=== PATIENT | female | born 1975 | race Caucasian/White ===

== ENCOUNTER 2019-08-01 12:45 | Emergency (ER) | payer OTHER ==
[~2019-08-01] VITALS: Ht 165.1 cm; Wt 117.9 kg
--- OUTSIDE RECORDS SUMMARY | ~2019-08-01 | XMS | Encounter Summary ---
Demographics + + + | Address | [address] [facility] | | | [place] [address] | + + + | Home Phone | | + + + | Preferred Language | Unknown | + + + | Marital Status | | + + + | Hinduism Affiliation | Unknown | + + + | Race | Unknown | + + + | Ethnic Group | Unknown | + + + Author + + + | Author | [facility] | | | and [place] | + + + | Organization | [facility] | | | and [place] | + + + | Address | Unknown | + + + | Phone | Unavailable | + + + Support + + + + + | Name | Relationship | Address | Phone | + + + + + | Alexsander Harris | ECON | [address] | | | | | [place] [address] | | + + + + + Care Team Providers + +------+ + | Care Respiratory Clinician Name | Role | Phone | + +------+ + | Haily Beltran NP | PCP | | + +------+ + Reason for Visit + + + | Reason | Comments | + + + | Sinusitis | x 3 days; assoc. with yellow sinus drainage, bilateral ear | | | drainage/vertigo, cough | + + + Encounter Details +--------+---------+ + + + | Date | Type | Department | Care Team | Description | +--------+---------+ + + + | 12/05/ | Office | [facility] | Indy Pearce | Acute bacterial | | 2019 | Visit | [address] | [place] [address] | rhinosinusitis | | | | [address] | [place] | (Primary Dx); Acute | | | | [address] [facility] | [place] [address] | diffuse otitis | | | | [place] [address] | [phone] | externa of both | | | | [phone] | | ears; Non-recurrent | | | | | | acute suppurative | | | | | | otitis media of both | | | | | | ears without | | | | | | spontaneous rupture | | | | | | of tympanic | | | | | | membranes | +--------+---------+ + + + Social History + +-------+ +--------+------+ | Tobacco Use | Types | Packs/Day | Years | Date | | | | | Used | | + +-------+ +--------+------+ | Current Every Day | | 2 | | | | Smoker | | | | | + +-------+ +--------+------+ + +---+---+---+ | Smokeless Tobacco: | | | | | Never Used | | | | + +---+---+---+ + + | Comments: quit a month ago | + + + + +---------+ + | Alcohol Use | Drinks/Week | oz/Week | Comments | + + +---------+ + | Yes | | | occassionally | + + +---------+ + + + + | Sex Assigned at | Date Recorded | | | | + + + | Not on file | | + + + + + + + | Job Start Date | Occupation | Industry | + + + + | Not on file | Not on file | Not on file | + + + + + + + + | Travel History | Travel Start | Travel End | + + + + + + | No recent travel history available. | + + documented as of this encounter Last Filed Vital Signs + + + + + | Vital Sign | Reading | Time Taken | Comments | + + + + + | Blood Pressure | 140/80 | 12/05/2018 4:04 PM | | | | | PDT | | + + + + + | Pulse | 82 | 12/05/2018 4:04 PM | | | | | PDT | | + + + + + | Temperature | 37.5 C (99.5 F) | 12/05/2018 4:04 PM | | | | | PDT | | + + + + + | Respiratory Rate | 16 | 12/05/2018 4:04 PM | | | | | PDT | | + + + + + | Oxygen Saturation | 97% | 12/05/2018 4:04 PM | | | | | PDT | | + + + + + | Inhaled Oxygen | - | - | | | Concentration | | | | + + + + + | Weight | 108.9 kg (240 lb) | 12/05/2018 4:04 PM | | | | | PDT | | + + + + + | Height | 165.1 cm (5' 5") | 12/05/2018 4:04 PM | | | | | PDT | | + + + + + | Body Mass Index | 39.94 | 12/05/2018 4:04 PM | | | | | PDT | | + + + + + documented in this encounter Patient Instructions Patient Instructions Indy Pearce, DARIEN - 12/05/2018 4:00 PM PDTFormatting of this n ote might be different from the original. Sinusitis (Antibiotic Treatment) The sinuses are air-filled spaces within the bones of the face. They connect to the inside of the nose.Sinusitisis an inflammation of the tissue that lines the sinuses. Sinusitis can occur during a cold. It can also happen due to allergies to pollens and other particles in the air. Sinusitis can cause symptoms of sinus congestion and a feeling of fullness. A si nus infection causes fever, headache, and facial pain. There is often green or yellow fluid draining from the nose or into the back of the throat (post-nasal drip). You have been given antibiotics to treat this condition. Home care Take the full course of antibiotics as instructed. Do not stop taking them, even when yo u feel better. Drink plenty of water, hot tea, and other liquids. This may help thin nasal mucus. It al so may help your sinuses drain fluids. Heat may help soothe painful areas of your face. Use a towel soaked in hot water. Or, st and in the shower and direct the warm spray onto your face. Using a vaporizer along with a m enthol rub at night may also help soothe symptoms. Anexpectorantwith guaifenesin may help thin nasal mucus and help your sinuses drain fluids. You can use an cotb-low-hadbvqdkodlkergjesy,unless a similar medicine was prescribed to you. Nasal sprays work the fastest. Use one that contains phenylephrine or oxymetazoline . First blow your nose gently. Then use the spray. Do not use these medicines more often itzel n directed on the label. If you do, your symptoms may get worse. You may also take pills itzel t contain pseudoephedrine. Don t use products that combine multiple medicines. This is bec ause side effects may be increased. Read labels. You can also ask the pharmacist for help. ( People with high blood pressure should not use decongestants. They can raise blood pressure. ) Atvq-wgs-jvpxjxntwiwobrnjbmgyztqu help if allergies contributed to your sinusitis. Do not use nasal rinses or irrigation during an acute sinus infection, unless your healt hcare provider tells you to. Rinsing may spread the infection to other areas in your sinuses . Use acetaminophen or ibuprofen to control pain, unless another pain medicine was prescri bed to you. If you have chronic liver or kidney disease or ever had a stomach ulcer, talk wi th your healthcare provider before using these medicines. (Aspirin should never be taken by anyone under age 18 who is ill with a fever. It may cause severe liver damage.) Don't smoke. This can make symptoms worse. Follow-up care Follow up with your healthcare provider or our staff if you are not better in 1 week. When to seek medical advice Call your healthcare provider if any of these occur: Facial pain or headache that gets worse Stiff neck Unusual drowsiness or confusion Swelling of your forehead or eyelids Vision problems, such as blurred or double vision Fever of100.4F (38C)or higher, or as directed by your healthcare provider Seizure Breathing problems Symptoms don't go away in 10 days Prevention Here are steps you can take to help prevent an infection: Keep good hand washing habits. Don t have close contact with people who have sore throats, colds, or other upper resp iratory infections. Don t smoke, and stay away from secondhand smoke. Stay up to date with of your vaccines. Date Last Reviewed: 06/27/201719998380-3754 [employer]. [address] [place] [address], [place] [address]. All righ ts reserved. This information is not intended as a substitute for professional medical care. Always follow your healthcare professional's instructions. Acute Bacterial Rhinosinusitis (ABRS) Acute bacterial rhinosinusitis (ABRS) is an infection of your nasal cavity and sinuses. It s caused by bacteria. Acute means that you ve had symptoms for less than 4 weeks, but po ssibly up to 12 weeks. Understanding your sinuses The nasal cavity is the large air-filled space behind your nose. The sinuses are a group of spaces formed by the bones of your face. They connect with your nasal cavity. ABRS causes t he tissue lining these spaces to become inflamed. Mucus may not drain normally. This leads t o facial pain and other symptoms. What causes ABRS? ABRS most often follows an upper respiratory infection caused by a virus. Bacteria then inf ect the lining of your nasal cavity and sinuses. But you can also get ABRS if you have: Nasal allergies Long-term nasal swelling and congestion not caused by allergies Blockage in the nose Symptoms of ABRS The symptoms of ABRS may be different for each person and include: Nasal congestion or blockage Pain or pressure in the face Thick, colored drainage from the nose Other symptoms may include: Runny nose Fluid draining from the nose down the throat (postnasal drip) Headache Cough Pain Fever Diagnosing ABRS ABRS may be diagnosed if you ve had an upper respiratory infection like a cold and cough for 10 or more days without improvement or with worsening symptoms. Your healthcare provider will ask about your symptoms and your medical history. The provider will check your vital s igns, including your temperature. You ll have a physical exam. The healthcare provider barry l check your ears, nose, and throat. You likely won t need any tests. If ABRS comes back, you may have a culture or other tests. Treatment for ABRS Treatment may include: Antibiotic medicine. This is for symptoms that last for at least 10 to 14 days. Nasal corticosteroid medicine. Drops or spray used in the nose can lessen swelling and c ongestion. Gqsa-hxn-xfkmcbh pain medicine. This is to lessen sinus pain and pressure. Nasal decongestant medicine. [place] or drops may help to lessen congestion. Do not use th em for more than a few days. Salt wash (saline irrigation). This can help to loosen mucus. Possible complications of ABRS ABRS may come back or become long-term (chronic). In rare cases, ABRS may cause complicatio ns such as: Inflamed tissue around the brain and spinal cord (meningitis) Inflamed tissue around the eyes (orbital cellulitis) Inflamed bones around the sinuses (osteitis) These problems may need to be treated in a hospital with intravenous (IV) antibiotic medici ne or surgery. When to call the healthcare provider Call your healthcare provider if you have any of the following: Symptoms that don t get better, or get worse Symptoms that don t get better after 3 to 5 days on antibiotics Trouble seeing Swelling around your eyes Confusion or trouble staying awake Date Last Reviewed: 12/25/201619991519-8059 [employer]. [address] [place], [place] [id number]. All righ ts reserved. This information is not intended as a substitute for professional medical care. Always follow your healthcare professional's instructions. External Ear Infection (Adult) External otitis (also called swimmer s ear ) is an infection in the ear canal. It is often caused by bacteria or fungus. It can occur a few days after water gets trapped in the ear canal (from swimming or bathing). It can also occur after cleaning too deeply in the ea r canal with a cotton swab or other object. Sometimes, hair care products get into the ear c anal and cause this problem. Symptoms can include pain, fever, itching, redness, drainage, or swelling of the ear canal. Temporary hearing loss may also occur. Home care Do not try to clean the ear canal. This can push pus and bacteria deeper into the canal. Use prescribed ear drops as directed. These help reduce swelling and fight the infection . If an ear wick was placed in the ear canal, apply drops right onto the end of the wick. Th e wick will draw the medicine into the ear canal even if it is swollen closed. A cotton ball may be loosely placed in the outer ear to absorb any drainage. You may use acetaminophen or ibuprofen to control pain, unless another medicinewas pre scribed. Note: If you have chronic liver or kidney disease or ever had a stomach ulcer or GI bleeding, talk to your healthcare provider before taking any of these medicines. Do not allow water to get into your ear when bathing. Also, don't swim until the infecti on has cleared. Prevention Keep your ears dry. This helps lower the risk of infection. Dry your ears with a towel o r foreign languages department chair after getting wet. Also, use ear plugs when swimming. Do not stick any objects in the ear to remove wax. If you feel water trapped in your ear, use ear drops right away. You can get these drops over the counter at most drugstores. They work by removing water from the ear canal. Follow-up care Follow up with your healthcare provider in 1 week, or as advised. When to seek medical advice Call your healthcare provider right away if any of these occur: Ear pain becomes worse or doesn t improve after 3 days of treatment Redness or swelling of the outer ear occurs or gets worse Headache Painful or stiff neck Drowsiness or confusion Fever of 100.4F (38C) or higher, or as directed by your healthcare provider Seizure Date Last Reviewed: 05/27/201719997763-2530 [employer] [employer]. [address] [place] [address]. All righ ts reserved. This information is not intended as a substitute for professional medical care. Always follow your healthcare professional's instructions. documented in this encounter Progress Notes Indy Pearce ARNP - 12/05/2018 4:00 PM PDTFormatting of this note might be differen t from the original. Subjective: Amparo Harris is a 43 y.o. female who presents to the clinic with a complaint of Sin usitis (x 3 days; assoc. with yellow sinus drainage, bilateral ear drainage/vertigo, cough ) Pt is a 43 yo wf who is a lifelong smoker since the age of 7, has symptoms of what she kiersten eves is a sinus infection, possibly an ear infection and is dizzy off and on. She has had f ever in addition to this up to 102. She is only been smoking about 2 cigarettes a day right now she is sick. Temperature is 99.5 today. She has significant pain and pressure in her sinuses. She states she would like to get this taken care of before it settles into her concepcion st. Symptoms are upper airway noise and congestion with a cough, earache bilaterally, but l ungs are clear. Sinus Problem This is a new problem. The current episode started in the past 7 days. The problem has been gradually worsening since onset. The maximum temperature recorded prior to her arrival was 102 - 102.9 F. Her pain is at a severity of 5/10. Associated symptoms include chills, conges tion, coughing, ear pain, headaches, shortness of breath, sinus pressure, sneezing and a sor e throat. Treatments tried: nyquel, sudafed, naproxden. The treatment provided mild relief. Allergies Allergen Reactions Citalopram Other (See Comments) "Couldn't stay awake" Penicillins Rash Medications: Patient Reported Taking Dosage albuterol (VENTOLIN HFA) 90 mcg/puff inhaler (Taking) Ventolin HFA 90 mcg/actuation aeros ol inhaler - 2 puffs every 4 hours as needed for shortness of breath Number of times this order has been changed since signin Order Audit Russell albuterol 2.5 mg/3 mL nebulizer solution (Taking) Take 2.5 mg by nebulization as needed f or Wheezing. APPLE CIDER VINEGAR PO (Taking) Take by mouth 2 times daily. Number of times this order has been changed since signin Order Audit Russell Ascorbic Acid (VITAMIN C) 1000 MG tablet (Taking) Take 2,000 mg by mouth Daily. B Complex Vitamins (B COMPLEX PO) (Taking) Take by mouth Daily. Number of times this order has been changed since signin Order Audit Russell Biotin 5000 MCG CAPS (Taking) Take 5,000 mcg by mouth Daily. Number of times this order has been changed since signin Order Audit Russell cetirizine (ZYRTEC) 10 mg tablet (Taking) Take 10 mg by mouth Daily. Cholecalciferol (VITAMIN D-3) 83180 units CAPS (Taking) Take 10,000 Units by mouth Daily. Coenzyme Q10 (COQ10) 100 MG CAPS (Taking) Take 120 mg by mouth 2 times daily. Number of times this order has been changed since signin Order Audit Russell Violet 3 1000 MG CAPS (Taking) Take 2,000 mg by mouth 2 times daily. Number of times this order has been changed since signin Order Audit Russell prazosin (MINIPRESS) 1 mg capsule (Taking/Discontinued) Take 2 mg by mouth nightly. Number of times this order has been changed since signin Order Audit Russell prazosin (MINIPRESS) 2 MG capsule (Taking) Take 2 mg by mouth nightly. Number of times this order has been changed since signin Order Audit Russell THYROID PO (Taking) Take by mouth Daily. Number of times this order has been changed since signin Order Audit Russell Turmeric (CURCUMIN 95) 500 MG CAPS (Taking) Take by mouth 3 times daily. Number of times this order has been changed since signin Order Audit Russell vitamin E 1000 UNITS capsule (Taking) Take 1,000 Units by mouth Daily. Past Medical History She has a past medical history of Anxiety, Cancer (HCC), Depression, Sleep disorder due to a general medical condition, insomnia type, Spondylitis, ankylosing (HCC), and Thyroid disea se. Past Surgical History She has a past surgical history that includes Hysterectomy; hernia repair; Cholecystectomy; and Tonsillectomy. Social History Tobacco Use Smoking status: Current Every Day Smoker Packs/day: 2.00 Smokeless tobacco: Never Used Tobacco comment: quit a month ago Substance Use Topics Alcohol use: Yes Comment: occassionally Drug use: Yes Frequency: 7.0 times per week Types: Marijuana Review of Systems Constitutional: Positive for appetite change, chills, fatigue and fever. HENT: Positive for congestion, ear pain, postnasal drip, rhinorrhea, sinus pressure, sinus pain, sneezing and sore throat. Negative for dental problem. Respiratory: Positive for cough and shortness of breath. Neurological: Positive for dizziness and headaches. See HPI Objective: Vitals: 12/05/18 1604 BP: 140/80 Pulse: 82 Resp: 16 Temp: 37.5 C (99.5 F) TempSrc: Oral SpO2: 97% Weight: 108.9 kg (240 lb) Height: 1.651 m (5' 5") No LMP recorded. Patient has had a hysterectomy. Physical Exam Constitutional: She is oriented to person, place, and time. She appears well-developed and well-nourished. She is cooperative. She appears ill. She appears distressed. Overall 99.5F HENT: Head: Normocephalic and atraumatic. Right Ear: Hearing and ear canal normal. There is tenderness. No drainage. There is mastoid tenderness. Tympanic membrane is erythematous and bulging. A middle ear effusion is present . Left Ear: Hearing and ear canal normal. There is tenderness. No drainage. No mastoid tender ness. Tympanic membrane is erythematous and bulging. A middle ear effusion is present. Nose: Mucosal edema, rhinorrhea and sinus tenderness present. Right sinus exhibits no front al sinus tenderness. Left sinus exhibits no frontal sinus tenderness. Mouth/Throat: Uvula is midline, oropharynx is clear and moist and mucous membranes are norm al. No trismus in the jaw. No uvula swelling. No oropharyngeal exudate, posterior oropharyng eal edema, posterior oropharyngeal erythema or tonsillar abscesses. Eyes: Pupils are equal, round, and reactive to light. Conjunctivae and lids are normal. Neck: Neck supple. Cardiovascular: Normal rate, regular rhythm and normal heart sounds. Pulmonary/Chest: Effort normal. No stridor. No respiratory distress. She has no decreased b reath sounds. She has no wheezes. She has rhonchi in the right upper field and the left uppe r field. She has no rales. Scattered occasional rhonchi Lymphadenopathy: She has cervical adenopathy. Right cervical: Deep cervical adenopathy present. Left cervical: Deep cervical adenopathy present. Superior deep cervical lymph nodes palpable on the right side. no noticeable warmth to the touch in the area of the mastoid bone as well as the parotid and superficial anterior and p osterior nodes. The right side is the more prominent of the glands and slightly tender to t ouch. Neurological: She is alert and oriented to person, place, and time. Skin: Skin is warm and dry. No rash noted. Psychiatric: She has a normal mood and affect. Her behavior is normal. Nursing note and vitals reviewed. No results found for this or any previous visit (from the past 24 hour(s)). Assessment: 1. Acute bacterial rhinosinusitis doxycycline (VIBRAMYCIN) 100 mg capsule 2. Acute diffuse otitis externa of both ears mfxiwqwh-zqzpmbzii-adrnfsoycrvuyh (CORTISPORI N) otic solution 3. Non-recurrent acute suppurative otitis media of both ears without spontaneous rupture of tympanic membranes doxycycline (VIBRAMYCIN) 100 mg capsule Plan: 1. Acute bacterial rhinosinusitis - doxycycline (VIBRAMYCIN) 100 mg capsule; Take 1 capsule by mouth 2 times daily for 10 day s. Dispense: 20 capsule; Refill: 0 2. Acute diffuse otitis externa of both ears - xvkchvfp-wqefzvmsz-jjbmugnoannvyy (CORTISPORIN) otic solution; Place 4 drops in ear(s) 4 times daily for 7 days. Dispense: 10 mL; Refill: 0 3. Non-recurrent acute suppurative otitis media of both ears without spontaneous rupture of tympanic membranes - doxycycline (VIBRAMYCIN) 100 mg capsule; Take 1 capsule by mouth 2 times daily for 10 day s. Dispense: 20 capsule; Refill: 0 See AVS for patient instructions. Patient KAVIN has Sudafed in an inhaler at home and has bee n using these regularly. Instructed to continue Sudafed to help decrease nasal congestion. Take the antibiotic as directed for the sinus infection. Drink lots water. Patient instru cted to go to urgent care or even the ER should her symptoms worsen in anyway over the next day to 2 days. Diagnosis and plan including medications and side effects were discussed with the patient a nd information handout was given. Patient voices understanding of the plan and all questions were answered. No follow-ups on file. documented in this encounter Plan of Treatment Not on filedocumented as of this encounter Visit Diagnoses + + | Diagnosis | + + | Acute bacterial rhinosinusitis - Primary | + + | Acute diffuse otitis externa of both ears | + + | Non-recurrent acute suppurative otitis media of both ears without spontaneous rupture | | of tympanic membranes | + + documented in this encounter
--- OUTSIDE RECORDS SUMMARY | ~2019-08-01 | XMS | Encounter Summary ---
Demographics + + + | Address | [address], [place] | | | [place] [address] | + + + | Home Phone | | + + + | Preferred Language | Unknown | + + + | Marital Status | | + + + | Nondenominational Affiliation | Unknown | + + + | Race | Unknown | + + + | Ethnic Group | Unknown | + + + Author + + + | Author | [facility] | | | and [place] | + + + | Organization | [facility] | | | and [place] | + + + | Address | Unknown | + + + | Phone | Unavailable | + + + Support + + + + + | Name | Relationship | Address | Phone | + + + + + | Alexsander Harris | ECON | [address] | | | | | [place] [address] | | + + + + + Care Team Providers + +------+ + | Care Electrical Engineering Intern Name | Role | Phone | + +------+ + PCP | Unavailable | + +------+ + Encounter Details +--------+ + + + + | Date | Type | Department | Care Team | Description | +--------+ + + + + | 01/11/ | Hospital | [facility] | Austin Cote MD | | | 2011 - | Encounter | MED CTR MED ONC | [address] | | | | | [address] | [place] [address] | | | 01/12/ | | [place] [address] | [phone] | | | 2011 | | [phone] | | | +--------+ + + + + Social History + +-------+ +--------+------+ | Tobacco Use | Types | Packs/Day | Years | Date | | | | | Used | | + +-------+ +--------+------+ | Never Assessed | | | | | + +-------+ +--------+------+ + + + | Sex Assigned at [...] + + documented as of this encounter Discharge Summaries Austin Cote MD - 01/12/2012 6:05 PM PDTADMISSION DATE: 01/12/2012 DISCHARGE DATE: 01/13/2012 The patient is a 36-year-old lady who presented to the hospital with concerns of sudden ons et of ches t pain. Kindly refer to H and Callie for further details. The patient was admitted to the hospital to rule out an FL. Serial troponins were checked, which were all found to be negative. The patient was chest pain-free when she had arrived to the ER and remained so th roughout her stay in the hospital. The narda balderrama's EKG remained normal sinus rhythm with no ST-T changes, no dynamic ST-T changes. The patient w as obese and lifestyle modifications w ere advised to patient, and also advised for outpatient diabete s screening and cholesterol check. The patient was advised for outpatient cardiac stress test, as rogelio donohue. The patient d id complain of some palpitations and on further history taking it seemed that the aguilar puente takes excessive caffeine and was advised to decrease or eliminate her caffeine intake and fo llow up with outpatient PCP regarding any further evaluation for that. The patient was found stable for discharge and was discharged with the following. DISCHARGE DIAGNOSES 1. CHEST PAIN, MYOCARDIAL INFARCTION RULED OUT. THE PATIENT CHEST PAIN-FREE. 2. OBESITY. Advised lifestyle modification. 3. KNOWN HISTORY OF ANXIETY, POSTTRAUMATIC STRESS DISORDER AND BIPOLAR DISORDER, ALL UNDER CONTROL ON MEDICATIONS. Continue to follow up with outpatient psychiatric. 4. HISTORY OF HYPOTHYROIDISM, on thyroid replacement therapy. DISCHARGE MEDICATIONS: As follows 1. Ambien 5 mg p.o. at bedtime as needed for insomnia. 2. Geodon home medication 80 mg orally every evening. 3. Minipress 2 mg oral every evening. 4. Oxycodone/acetaminophen combination 7.5/325, 1 p.o. every 4 hours as needed for moderate to severe pain. 5. Synthroid 175 mcg orally daily. 6. Estradiol 1 mg orally every evening. The patient apparently on hormone replacement thera py through PCP. 7. Aspirin 81 mg oral daily. 8. Xanax 0.25 mg oral every 8 hours p.r.n. for anxiety. 9. Tylenol 650 mg, 1 p.o. every 8 hours as needed for mild to moderate pain. DICTATED BY: Austin Cote MD Internal Medicine/Hospitalist JOB #: [id number] EXT JOB #:[id number] cc: Fausto Montesinos DO <Electronically Signed by Austin Cote MD> 01/24/12 2155 documented in this encounter Plan of Treatment Not on filedocumented as of this encounter Procedures + +--------+ + + + | Procedure Name | Priori | Date/Time | Associated Diagnosis | Comments | | | ty | | | | + +--------+ + + + | TROPONIN I | Routin | 01/13/2012 | | Results for this | | | e | 7:03 AM | | procedure are in the | | | | PDT | | results section. | + +--------+ + + + | LIPASE | Routin | 01/13/2012 | | Results for this | | | e | 7:03 AM | | procedure are in the | | | | PDT | | results section. | + +--------+ + + + | HEMOGLOBIN A1C | Routin | 01/13/2012 | | Results for this | | | e | 7:03 AM | | procedure are in the | | | | PDT | | results section. | + +--------+ + + + | TROPONIN I | Routin | 01/12/2012 | | Results for this | | | e | 10:18 PM | | procedure are in the | | | | PDT | | results section. | + +--------+ + + + | VAS LOWER EXTREMITY | | 01/12/2012 | | Results for this | | VENOUS RIGHT | | 6:05 PM | | procedure are in the | | | | PDT | | results section. | + +--------+ + + + | XR CHEST AP PORTABLE | | 01/12/2012 | | Results for this | | | | 6:05 PM | | procedure are in the | | | | PDT | | results section. | + +--------+ + + + | TROPONIN I | Routin | 01/12/2012 | | Results for this | | | e | 2:46 PM | | procedure are in the | | | | PDT | | results section. | + +--------+ + + + | D-DIMER | Routin | 01/12/2012 | | Results for this | | | e | 2:46 PM | | procedure are in the | | | | PDT | | results section. | + +--------+ + + + | CBC WITH | Routin | 01/12/2012 | | Results for this | | DIFFERENTIAL | e | 2:46 PM | | procedure are in the | | | | PDT | | results section. | + +--------+ + + + | COMPREHENSIVE | Routin | 01/12/2012 | | Results for this | | METABOLIC PANEL | e | 2:46 PM | | procedure are in the | | | | PDT | | results section. | + +--------+ + + + documented in this encounter Results Hemoglobin A1C (01/13/2012 7:03 AM PDT) + +-------+ + + + | Component | Value | Ref Range | Performed | Pathologist | | | | | At | Signature | + +-------+ + + + | Hemoglobin | 4.7 | 4.3 - 5.8 % | [facility] | | | A1c | | | [facility] | | | | | | MEDICAL | | | | | | CENTER - | | | | | | LABORATORY | | + +-------+ + + + + + | Specimen | + + | | + + + + + + + | Performing | Address | City/State/Zipcode | Phone Number | | Organization | | | | + + + + + | [facility] | [address] | [place] | [phone] | | [facility] | | [address] | | | - LABORATORY | | | | + + + + + | [facility] | [address] | [place] | | | [facility] | | [address] | | | - LABORATORY | | | | + + + + + Troponin I (01/13/2012 7:03 AM PDT) + + + + + + | Component | Value | Ref Range | Performed | Pathologist | | | | | At | Signature | + + + + + + | Troponin I | <0.01Comment: Reference | <0.06 ng/mL | [facility] | | | | Ranges: | | [facility] | | | | 0.00-0.06 = NORMAL | | MEDICAL | | | | >0.06 | | CENTER - | | | | = SUSPICIOUS FOR | | LABORATORY | | | | MYOCARDIAL DAMAGE | | | | | | NOTE: Values greater | | | | | | than 0.50 ng/mL have | | | | | | been shown to be | | | | | | strongly associated with | | | | | | acute myocardial | | | | | | infarction. The | | | | | | [employer] | | | | | | Cardiology (ACC) | | | | | | recommends a decision | | | | | | limit of 0.06 ng/mL for | | | | | | this assay. Results | | | | | | greater than 0.06 can | | | | | | reflect a pre-infarct | | | | | | acute coronary | | | | | | syndrome, but can also | | | | | | reflect myocardial | | | | | | necrosis or injury | | | | | | that is not due to | | | | | | coronary artery | | | | | | disease. Some of these | | | | | | causes are sepsis, | | | | | | hypocolemia, atrial | | | | | | fibrillation, heart | | | | | | failure, pulmonary | | | | | | embolism, myocarditis, | | | | | | myocardial contusion, | | | | | | and renal failure. The | | | | | | diagnosis of myocardial | | | | | | infarction should be | | | | | | based on a combination | | | | | | of the patient's | | | | | | clinical presentation | | | | | | and the clinical | | | | | | laboratory test results | | | | | | (especially serial | | | | | | troponin levels). | | | | + + + + + + + + | Specimen | + + | | + + + + + + + | Performing | Address | City/State/Zipcode | Phone Number | | Organization | | | | + + + + + | [facility] | [address] | [place], [place] | [phone] | | [facility] | | [address] | | | - LABORATORY | | | | + + + + + | [facility] | [address] | [place], [place] | | | [facility] | | [address] | | | - LABORATORY | | | | + + + + + Lipase (01/13/2012 7:03 AM PDT) + +-------+ + + + | Component | Value | Ref Range | Performed | Pathologist | | | | | At | Signature | + +-------+ + + + | Lipase | 18 | 0 - 60 U/L | [facility] | | | | | | [facility] | | | | | | MEDICAL | | | | | | CENTER - | | | | | | LABORATORY | | + +-------+ + + + + + | Specimen | + + | | + + + + + + + | Performing | Address | City/State/Zipcode | Phone Number | | Organization | | | | + + + + + | [facility] | [address] | [place] | [phone] | | [facility] | | [address] | | | - LABORATORY | | | | + + + + + | [facility] | [address] | [place] | | | [facility] | | [address] | | | - LABORATORY | | | | + + + + + Troponin I (01/12/2012 10:18 PM PDT) + + + + + + | Component | Value | Ref Range | Performed | Pathologist | | | | | At | Signature | + + + + + + | Troponin I | <0.01Comment: Reference | <0.06 ng/mL | [facility] | | | | Ranges: | | [facility] | | | | 0.00-0.06 = NORMAL | | MEDICAL | | | | >0.06 | | CENTER - | | | | = SUSPICIOUS FOR | | LABORATORY | | | | MYOCARDIAL DAMAGE | | | | | | NOTE: Values greater | | | | | | than 0.50 ng/mL have | | | | | | been shown to be | | | | | | strongly associated with | | | | | | acute myocardial | | | | | | infarction. The | | | | | | [employer] | | | | | | Cardiology (ACC) | | | | | | recommends a decision | | | | | | limit of 0.06 ng/mL for | | | | | | this assay. Results | | | | | | greater than 0.06 can | | | | | | reflect a pre-infarct | | | | | | acute coronary | | | | | | syndrome, but can also | | | | | | reflect myocardial | | | | | | necrosis or injury | | | | | | that is not due to | | | | | | coronary artery | | | | | | disease. Some of these | | | | | | causes are sepsis, | | | | | | hypocolemia, atrial | | | | | | fibrillation, heart | | | | | | failure, pulmonary | | | | | | embolism, myocarditis, | | | | | | myocardial contusion, | | | | | | and renal failure. The | | | | | | diagnosis of myocardial | | | | | | infarction should be | | | | | | based on a combination | | | | | | of the patient's | | | | | | clinical presentation | | | | | | and the clinical | | | | | | laboratory test results | | | | | | (especially serial | | | | | | troponin levels). | | | | + + + + + + + + | Specimen | + + | | + + + + + + + | Performing | Address | City/State/Zipcode | Phone Number | | Organization | | | | + + + + + | [facility] | [address] | [place], [place] | [phone] | | [facility] | | [address] | | | - LABORATORY | | | | + + + + + | [facility] | [address] | [place], [place] | | | [facility] | | [address] | | | - LABORATORY | | | | + + + + + XR Chest AP Portable (01/12/2012 6:05 PM PDT) + + | Specimen | + + | | + + + + + | Narrative | Performed At | + + + | Merged With [facility] Diagnostic Imaging Department | [facility] | | [address] [facility] | [facility] | | PORTABLE CHEST, 01/12/2012 | DIAG IMG | | CLINICAL HISTORY: CHEST PAIN. COMPARISON: None. | | | FINDINGS: Frontal view of the chest. The lungs are well aerated | | | and clear. No large effusions. No pneumothorax. The cardiac | | | and mediastinal contours are not enlarged. Osseous structures are | | | withou t acute abnormality. Chronic changes are present in the | | | right distal clavicle at the acromioclavicul ar joint. | | | IMPRESSION: 1. NO ACUTE DISEASE. Dictated Date/Time: | | | 01/12/2012 16:44 Transcribed Date/Time: 01/12/2012 17:13 | | | Fingerprint Classifier: <Electronically Signed by Ventura Stewart, | | | MD> 01/15/12 3912 | | + + + + + | Procedure Note | + + | Keo, Rad Conversion - 10/03/2013 5:22 PM [facility] | | Diagnostic Imaging Department [address] [place] [address] | | PORTABLE CHEST, 01/12/2012 CLINICAL HISTORY: CHEST | | PAIN. COMPARISON: None. FINDINGS: Frontal view of the chest. The lungs are well | | aerated and clear. No large effusions. No pneumothorax. The cardiac and mediastinal | | contours are not enlarged. Osseous structures are without acute abnormality. Chronic | | changes are present in the right distal clavicle at the acromioclavicular joint. | | IMPRESSION: 1. NO ACUTE DISEASE. Dictated Date/Time: 01/12/2012 16:44Transcribed | | Date/Time: 01/12/2012 17:13Transcriptionist: <Electronically Signed by Ventura Hoover | | MD Terry> 01/15/12 4402 | |COMPARISON: None. | | | |FINDINGS: Frontal view of the chest. The lungs are well aerated and clear. No large effu sions. No | | pneumothorax. The cardiac and mediastinal contours are not enlarged. Osseous structures are withou | |t acute abnormality. Chronic changes are present in the right distal clavicle at the acrom ioclavicul | |ar joint. | | | |IMPRESSION: | |1. NO ACUTE DISEASE. | | | |Dictated Date/Time: 01/12/2012 16:44 | |Transcribed Date/Time: 01/12/2012 17:13 | |Fingerprint Classifier: | |<Electronically Signed by Ventura Stewart MD> 01/15/12 1832 | + + + +---------+ + + | Performing | Address | City/State/[facility] | Phone Number | | Organization | | | | + +---------+ + + | [place] | | | | | [facility] | | | | + +---------+ + + VAS Lower Extremity Venous Right (01/12/2012 6:05 PM PDT) + + | Specimen | + + | | + + + + + | Narrative | Performed At | + + + | Merged With [facility] Diagnostic Imaging Department | [facility] | | [address] [facility] | [facility] | | RIGHT VENOUS DUPLEX: 01/12/2012 | DIAG IMG | | CLINICAL HISTORY: RIGHT LOWER EXTREMITY SWELLING. FINDINGS: | | | Compression sonography is performed from the right groin through | | | the popliteal branch vess els. Areas sampled demonstrate | | | normal and complete compressibility. No visible thrombi. There is | | | appropr iate response to Valsalva in the right common femoral vein. | | | Respiratory phasic flow is seen througho ut. Response to calf | | | augmentation is seen throughout. Complex fluid collection is | | | seen in the posterior aspect of the right knee. IMPRESSION: | | | 1. NO EVIDENCE FOR DEEP VENOUS THROMBOSIS. 2. COMPLEX FLUID IN | | | THE POSTERIOR FOSSA WOULD MOST COMMONLY REPRESENT A WARD'S CYST. | | | COMMENT: PRELIMINARY FINDINGS WERE CONVEYED TO DR. CHAMBERS | | | IMMEDIATELY FOLLOWING THE STUDY. Dictated Date/Time: 01/12/2012 | | | 16:17 Transcribed Date/Time: 01/12/2012 16:59 Fingerprint Classifier: | | | RB <Electronically Signed by Ventura Stewart MD> 01/15/12 7172 | | + + + + + | Procedure Note | + + | Keo, Rad Conversion - 10/03/2013 5:22 PM [facility] | | Diagnostic Imaging Department [address] [place] [address] | | RIGHT VENOUS DUPLEX: 01/12/2012 CLINICAL HISTORY: | | RIGHT LOWER EXTREMITY SWELLING. FINDINGS: Compression sonography is performed from the | | right groin through the popliteal branch vessels. Areas sampled demonstrate normal and | | complete compressibility. No visible thrombi. There is appropriate response to | | Valsalva in the right common femoral vein. Respiratory phasic flow is seen throughout. | | Response to calf augmentation is seen throughout. Complex fluid collection is seen in | | the posterior aspect of the right knee. IMPRESSION: 1. NO EVIDENCE FOR DEEP VENOUS | | THROMBOSIS. 2. COMPLEX FLUID IN THE POSTERIOR FOSSA WOULD MOST COMMONLY REPRESENT A | | WARD'S CYST. COMMENT: PRELIMINARY FINDINGS WERE CONVEYED TO DR. CHAMBERS IMMEDIATELY | | FOLLOWING THE STUDY. Dictated Date/Time: 01/12/2012 16:17Transcribed Date/Time: | | 01/12/2012 16:59Transcriptionist: <Electronically Signed by Ventura Stewart MD> | | 01/15/122 | |iate response to Valsalva in the right common femoral vein. Respiratory phasic flow is see n througho | |ut. Response to calf augmentation is seen throughout. | | | |Complex fluid collection is seen in the posterior aspect of the right knee. | | | |IMPRESSION: | |1. NO EVIDENCE FOR DEEP VENOUS THROMBOSIS. | | | |2. COMPLEX FLUID IN THE POSTERIOR FOSSA WOULD MOST COMMONLY REPRESENT A WARD'S CYST. | | | |COMMENT: PRELIMINARY FINDINGS WERE CONVEYED TO DR. CHAMBERS IMMEDIATELY FOLLOWING THE STUDY. | | | |Dictated Date/Time: 01/12/2012 16:17 | |Transcribed Date/Time: 01/12/2012 16:59 | |Fingerprint Classifier: | |<Electronically Signed by Ventura Stewart MD> 01/15/122 | + + + +---------+ + + | Performing | Address | City/State/Zipcode | Phone Number | | Organization | | | | + +---------+ + + | [place] | | | | | [facility] | | | | + +---------+ + + D-Dimer (01/12/2012 2:46 PM PDT) + + + + + + | Component | Value | Ref Range | Performed | Pathologist | | | | | At | Signature | + + + + + + | D-DIMER, | <0.22Comment: This | <0.50 ug/mlFEU | [facility] | | | QUANTITATIV | quantitative D-Dimer | | [facility] | | | E | assay has been evaluated | | MEDICAL | | | | for screening for | | CENTER - | | | | venous thrombotic | | LABORATORY | | | | disease, and may be | | | | | | useful in ruling out, | | | | | | but not ruling in | | | | | | disease. Values less | | | | | | than 0.50 ug/mL FEU | | | | | | (Fibrinogen Equivalent | | | | | | Units) have a negative | | | | | | predictive value of | | | | | | approximately 95% for | | | | | | ruling out large | | | | | | pulmonary emboli or | | | | | | proximal deep vein | | | | | | thrombosis. Distal DVT | | | | | | are not excluded. An | | | | | | elevated D-dimer can be | | | | | | present in patients | | | | | | with liver disease, | | | | | | , eclampsia, | | | | | | heart disease and some | | | | | | cancers among other | | | | | | conditions. The | | | | | | presence of rheumatoid | | | | | | factor at a level >50 | | | | | | IU/mL may falsely | | | | | | elevate the determined | | | | | | D-dimer levels. | | | | + + + + + + + + | Specimen | + + | | + + + + + + + | Performing | Address | City/State/Zipcode | Phone Number | | Organization | | | | + + + + + | [facility] | [address] | [place] | [phone] | | [facility] | | [address] | | | - LABORATORY | | | | + + + + + | [facility] | [address] | [place] | | | [facility] | | [address] | | | - LABORATORY | | | | + + + + + Comprehensive Metabolic Panel (01/12/2012 2:46 PM PDT) + + + + + + | Component | Value | Ref Range | Performed | Pathologist | | | | | At | Signature | + + + + + + | Glucose | 117 (H) | 70 - 109 mg/dL | [facility] | | | | | | [facility] | | | | | | MEDICAL | | | | | | CENTER - | | | | | | LABORATORY | | + + + + + + | Calcium | 8.4 | 8.3 - 10.5 | [facility] | | | | | mg/dL | [facility] | | | | | | MEDICAL | | | | | | CENTER - | | | | | | LABORATORY | | + + + + + + | Alkaline | 71 | 40 - 110 IU/L | [facility] | | | Phosphatase | | | [facility] | | | | | | MEDICAL | | | | | | CENTER - | | | | | | LABORATORY | | + + + + + + | AST | 22 | 10 - 42 IU/L | [facility] | | | | | | [facility] | | | | | | MEDICAL | | | | | | CENTER - | | | | | | LABORATORY | | + + + + + + | ALT | 21 | 6 - 45 IU/L | [facility] | | | | | | [facility] | | | | | | MEDICAL | | | | | | CENTER - | | | | | | LABORATORY | | + + + + + + | Bilirubin | 0.5 | 0.2 - 1.0 mg/dL | [facility] | | | Total | | | [facility] | | | | | | MEDICAL | | | | | | CENTER - | | | | | | LABORATORY | | + + + + + + | Total | 6.3 | 6.0 - 7.8 gm/dL | [facility] | | | Protein | | | [facility] | | | | | | MEDICAL | | | | | | CENTER - | | | | | | LABORATORY | | + + + + + + | Albumin | 3.8 | 3.2 - 5.0 gm/dL | [facility] | | | | | | [facility] | | | | | | MEDICAL | | | | | | CENTER - | | | | | | LABORATORY | | + + + + + + | BUN | 16 | 7 - 18 mg/dL | [facility] | | | | | | [facility] | | | | | | MEDICAL | | | | | | CENTER - | | | | | | LABORATORY | | + + + + + + | Creatinine | 0.76 | 0.60 - 1.30 | [facility] | | | | | mg/dL | [facility] | | | | | | MEDICAL | | | | | | CENTER - | | | | | | LABORATORY | | + + + + + + | Estimated | >60Comment: For | >60 mL/min/A | [facility] | | | GFR | -Americans, | | [facility] | | | | please multiply the | | MEDICAL | | | | result by 1.210 | | CENTER - | | | | This is an estimated | | LABORATORY | | | | GFR and is based on a | | | | | | standard adult | | | | | | body mass (A=1.73m2) and | | | | | | serum creatinine | | | | + + + + + + | BUN/Creatin | 21.1 (H) | 12 - 20 | [facility] | | | ine Ratio | | | [facility] | | | | | | MEDICAL | | | | | | CENTER - | | | | | | LABORATORY | | + + + + + + | Na | 133 (L) | 136 - 149 mEq/L | [facility] | | | | | | [facility] | | | | | | MEDICAL | | | | | | CENTER - | | | | | | LABORATORY | | + + + + + + | K | 3.8 | 3.5 - 5.1 mEq/l | [facility] | | | | | | [facility] | | | | | | MEDICAL | | | | | | CENTER - | | | | | | LABORATORY | | + + + + + + | Cl | 107 | 98 - 109 mEq/l | [facility] | | | | | | [facility] | | | | | | MEDICAL | | | | | | CENTER - | | | | | | LABORATORY | | + + + + + + | CO2 | 22 (L) | 24 - 31 mEq/L | [facility] | | | | | | [facility] | | | | | | MEDICAL | | | | | | CENTER - | | | | | | LABORATORY | | + + + + + + | Anion Gap | 7.8 | 6.0 - 17.0 | [facility] | | | | | | [facility] | | | | | | MEDICAL | | | | | | CENTER - | | | | | | LABORATORY | | + + + + + + + + | Specimen | + + | | + + + + + + + | Performing | Address | City/State/Zipcode | Phone Number | | Organization | | | | + + + + + | [facility] | [address] | [place], [place] | [phone] | | [facility] | | [address] | | | - LABORATORY | | | | + + + + + | [facility] | [address] | [place], [place] | | | [facility] | | [address] | | | - LABORATORY | | | | + + + + + Troponin I (01/12/2012 2:46 PM PDT) + + + + + + | Component | Value | Ref Range | Performed | Pathologist | | | | | At | Signature | + + + + + + | Troponin I | <0.01Comment: Reference | <0.06 ng/mL | [facility] | | | | Ranges: | | [facility] | | | | 0.00-0.06 = NORMAL | | MEDICAL | | | | >0.06 | | CENTER - | | | | = SUSPICIOUS FOR | | LABORATORY | | | | MYOCARDIAL DAMAGE | | | | | | NOTE: Values greater | | | | | | than 0.50 ng/mL have | | | | | | been shown to be | | | | | | strongly associated with | | | | | | acute myocardial | | | | | | infarction. The | | | | | | [employer] | | | | | | Cardiology (ACC) | | | | | | recommends a decision | | | | | | limit of 0.06 ng/mL for | | | | | | this assay. Results | | | | | | greater than 0.06 can | | | | | | reflect a pre-infarct | | | | | | acute coronary | | | | | | syndrome, but can also | | | | | | reflect myocardial | | | | | | necrosis or injury | | | | | | that is not due to | | | | | | coronary artery | | | | | | disease. Some of these | | | | | | causes are sepsis, | | | | | | hypocolemia, atrial | | | | | | fibrillation, heart | | | | | | failure, pulmonary | | | | | | embolism, myocarditis, | | | | | | myocardial contusion, | | | | | | and renal failure. The | | | | | | diagnosis of myocardial | | | | | | infarction should be | | | | | | based on a combination | | | | | | of the patient's | | | | | | clinical presentation | | | | | | and the clinical | | | | | | laboratory test results | | | | | | (especially serial | | | | | | troponin levels). | | | | + + + + + + + + | Specimen | + + | | + + + + + + + | Performing | Address | City/State/Zipcode | Phone Number | | Organization | | | | + + + + + | [facility] | [address] | [place] | [phone] | | [facility] | | [address] | | | - LABORATORY | | | | + + + + + | [facility] | [address] | [place], [place] | | | [facility] | | [address] | | | - LABORATORY | | | | + + + + + CBC with Differential (01/12/2012 2:46 PM PDT) + +-------+ + + + | Component | Value | Ref Range | Performed | Pathologist | | | | | At | Signature | + +-------+ + + + | WBC | 8.3 | 4.0 - 11.0 K/uL | [facility] | | | | | | [facility] | | | | | | MEDICAL | | | | | | CENTER - | | | | | | LABORATORY | | + +-------+ + + + | RBC | 3.94 | 3.70 - 5.20 | [facility] | | | | | M/uL | [facility] | | | | | | MEDICAL | | | | | | CENTER - | | | | | | LABORATORY | | + +-------+ + + + | Hemoglobin | 12.5 | 11.5 - 16.0 | [facility] | | | | | gm/dL | [facility] | | | | | | MEDICAL | | | | | | CENTER - | | | | | | LABORATORY | | + +-------+ + + + | Hematocrit | 35.4 | 34.0 - 47.0 % | [facility] | | | | | | [facility] | | | | | | MEDICAL | | | | | | CENTER - | | | | | | LABORATORY | | + +-------+ + + + | MCV | 89.7 | 83.0 - 101.0 fL | [facility] | | | | | | [facility] | | | | | | MEDICAL | | | | | | CENTER - | | | | | | LABORATORY | | + +-------+ + + + | MCH | 31.7 | 28.0 - 35.0 pg | [facility] | | | | | | [facility] | | | | | | MEDICAL | | | | | | CENTER - | | | | | | LABORATORY | | + +-------+ + + + | MCHC | 35.3 | 32.0 - 36.0 | [facility] | | | | | g/dL | [facility] | | | | | | MEDICAL | | | | | | CENTER - | | | | | | LABORATORY | | + +-------+ + + + | RDW-CV | 12.7 | <15.0 % | [facility] | | | | | | [facility] | | | | | | MEDICAL | | | | | | CENTER - | | | | | | LABORATORY | | + +-------+ + + + | Platelet | 262 | 140 - 440 K/uL | [facility] | | | Count | | | [facility] | | | | | | MEDICAL | | | | | | CENTER - | | | | | | LABORATORY | | + +-------+ + + + | % | 63.4 | 45 - 75 % | [facility] | | | Neutrophils | | | [facility] | | | | | | MEDICAL | | | | | | CENTER - | | | | | | LABORATORY | | + +-------+ + + + | % | 29.5 | 20 - 45 % | [facility] | | | Lymphocytes | | | [facility] | | | | | | MEDICAL | | | | | | CENTER - | | | | | | LABORATORY | | + +-------+ + + + | % Monocytes | 5.8 | 4 - 12 % | [facility] | | | | | | [facility] | | | | | | MEDICAL | | | | | | CENTER - | | | | | | LABORATORY | | + +-------+ + + + | % | 1.0 | 0 - 5 % | [facility] | | | Eosinophils | | | [facility] | | | | | | MEDICAL | | | | | | CENTER - | | | | | | LABORATORY | | + +-------+ + + + | % Basophils | 0.3 | 0 - 1 % | [facility] | | | | | | [facility] | | | | | | MEDICAL | | | | | | CENTER - | | | | | | LABORATORY | | + +-------+ + + + | Absolute | 5.3 | 1.5 - 6.6 K/uL | [facility] | | | Neutrophils | | | [facility] | | | | | | MEDICAL | | | | | | CENTER - | | | | | | LABORATORY | | + +-------+ + + + | Absolute | 2.4 | 0.6 - 3.2 K/uL | [facility] | | | Lymphocytes | | | [facility] | | | | | | MEDICAL | | | | | | CENTER - | | | | | | LABORATORY | | + +-------+ + + + | Absolute | 0.5 | 0.0 - 1.0 K/uL | [facility] | | | Monocytes | | | [facility] | | | | | | MEDICAL | | | | | | CENTER - | | | | | | LABORATORY | | + +-------+ + + + | Absolute | 0.1 | 0.0 - 0.4 K/uL | [facility] | | | Eosinophils | | | [facility] | | | | | | MEDICAL | | | | | | CENTER - | | | | | | LABORATORY | | + +-------+ + + + | Absolute | 0.0 | 0.0 - 0.1 K/uL | [facility] | | | Basophils | | | [facility] | | | | | | MEDICAL | | | | | | CENTER - | | | | | | LABORATORY | | + +-------+ + + + + + | Specimen | + + | | + + + + + + + | Performing | Address | City/State/Zipcode | Phone Number | | Organization | | | | + + + + + | [facility] | [address] | [place] | [phone] | | [facility] | | [address] | | | - LABORATORY | | | | + + + + + | [facility] | [address] | [place] | | | [facility] | | [address] | | | - LABORATORY | | | | + + + + + documented in this encounter Visit Diagnoses Not on filedocumented in this encounter"
--- OUTSIDE RECORDS SUMMARY | ~2019-08-01 | XMS | Encounter Summary ---
Demographics + + + | Address | [address] | | | [place] [address] | + + + | Home Phone | | + + + | Preferred Language | Unknown | + + + | Marital Status | | + + + | Amish Affiliation | Unknown | + + + | Race | Unknown | + + + | Ethnic Group | Unknown | + + + Author + + + | Author | [facility]erg[facility] | | | and [place] | + + + | Organization | [facility]erg[facility] | | | and [place] | + + + | Address | Unknown | + + + | Phone | Unavailable | + + + Support + + + + + | Name | Relationship | Address | Phone | + + + + + | Alexsander Harris | ECON | [address] | | | | | [place] [address] | | + + + + + Care Team Providers + +------+ + | Care Knitting Machine Tender Name | Role | Phone | + [...] bacterial | | 2019 | Visit | [place] [address] | [place] [address] | rhinosinusitis | | | | [address] | [place] | (Primary Dx); Acute | | | | [address] [facility] | [place] [address] | diffuse otitis | | | | [place] [address] | [phone] | externa of both | | | | [phone] | | ears; Non-recurrent | | | [...] sinuses drain fluids. You can use an irkh-lag-uqcwxaikqkudnpbyjey,unless a similar medicine was prescribed to you. [...] decongestants. They can raise blood pressure. ) Zgdb-xvv-shyamzwrmedueyhiutpyvqyt help if allergies contributed to your sinusitis. [...] with of your vaccines. Date Last Reviewed: 06/27/201719992371-8935 [employer]. [address] [place] [address], [place] [address]. All righ ts reserved. This information is [...] nose can lessen swelling and c ongestion. Cohi-uui-vqzusri pain medicine. This is to lessen sinus pain and pressure. Nasal decongestant medicine. [place] or drops may help to lessen congestion. [...] or trouble staying awake Date Last Reviewed: 12/25/201619997768-6632 [employer]. [address] [place], [place] [id number]. All righ ts reserved. This information is [...] your ears with a towel o r rolling chair pusher after getting wet. Also, use ear plugs [...] your healthcare provider Seizure Date Last Reviewed: 05/27/201719994486-2646 [employer]. [address] [place] [address]. All righ ts reserved. This information is [...] has been changed since signin Order [facility] albuterol 2.5 mg/3 mL nebulizer solution (Taking) Take 2.5 mg by nebulization as needed f or Wheezing. APPLE CIDER VINEGAR PO (Taking) Take by mouth 2 times daily. Number of times this order has been changed since signin [facility] Ascorbic Acid (VITAMIN C) 1000 MG tablet (Taking) Take 2,000 mg by mouth Daily. B Complex Vitamins (B COMPLEX PO) (Taking) Take by mouth Daily. Number of times this order has been changed since signin Order [facility] Biotin 5000 MCG CAPS (Taking) Take 5,000 mcg by mouth Daily. Number of times this order has been changed since signin Order [facility] cetirizine (ZYRTEC) 10 mg tablet (Taking) Take 10 mg by mouth Daily. Cholecalciferol (VITAMIN D-3) 50984 units CAPS (Taking) Take 10,000 Units by mouth Daily. Coenzyme Q10 (COQ10) 100 MG CAPS (Taking) Take 120 mg by mouth 2 times daily. Number of times this order has been changed since signin Order [facility] Fenton 3 1000 MG CAPS (Taking) Take 2,000 mg by mouth 2 times daily. Number of times this order has been changed since signin Order [facility] prazosin (MINIPRESS) 1 mg capsule (Taking/Discontinued) Take 2 mg by mouth nightly. Number of times this order has been changed since signin [facility] prazosin (MINIPRESS) 2 MG capsule (Taking) Take 2 mg by mouth nightly. Number of times this order has been changed since signin Order [facility] THYROID PO (Taking) Take by mouth Daily. Number of times this order has been changed since signin Order [facility] Turmeric (CURCUMIN 95) 500 MG CAPS (Taking) Take by mouth 3 times daily. Number of times this order has been changed since signin Order [facility] vitamin E 1000 UNITS capsule (Taking) Take [...] Acute diffuse otitis externa of both ears pffbwduv-qgcptdjrf-noaoevbgoqywkw (CORTISPORI N) otic solution 3. Non-recurrent acute suppurative otitis media of both ears without spontaneous rupture of tympanic membranes doxycycline (VIBRAMYCIN) 100 mg capsule Plan: 1. Acute bacterial rhinosinusitis - doxycycline (VIBRAMYCIN) 100 mg capsule; Take 1 capsule by mouth 2 times daily for 10 day s. Dispense: 20 capsule; Refill: 0 2. Acute diffuse otitis externa of both ears - lhxzfsat-aluqlzrye-vqepbpkvqitwrq (CORTISPORIN) otic solution; Place 4 drops in [...]
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
--- OUTSIDE RECORDS SUMMARY | ~2019-08-01 | XMS | Encounter Summary ---
Demographics + + + | Address | [address] | | | [place] [address] | + + + | Home Phone | | + + + | Preferred Language | Unknown | + + + | Marital Status | | + + + | Mu-Ism Affiliation | Unknown | + + + | Race | Unknown | + + + | Ethnic Group | Unknown | + + + Author + + + | Author | [facility] | | | and [place] | + + + | Organization | [facility] | | | and [place] | + + + | Address | Unknown | + + + | Phone | Unavailable | + + + Support + + + + + | Name | Relationship | Address | Phone | + + + + + | Alexsander Harris | ECON | [address] | | | | | [place] [address] | | + + + + + Care Team Providers + +------+ + | Care Pump And Still Operator Name | Role | Phone | + +------+ + | Fausto Montesinos DO | PCP | | + +------+ + Reason for Visit +--------+ + | Reason | Comments | +--------+ + | Cough | 102.1F yesterday, bodyaches, sinus congestion, otalgia.RM4 | +--------+ + Encounter Details +--------+---------+ + + + | Date | Type | Department | Care Team | Description | +--------+---------+ + + + | 11/05/ | Office | [facility] | Caren Charles | Bronchitis with | | 2016 | Visit | CARE [address] | DO [place] | bronchospasm | | | | [place], [place] | [place], [place] | (Primary Dx) | | | | [address] | [address] | | | | | [phone] | | | +--------+---------+ + + + Social History + +-------+ +--------+------+ | Tobacco Use | Types | Packs/Day | Years | Date | | | | | Used | | + +-------+ +--------+------+ | Current Every Day | | 1 | | | | Smoker | | | | | + +-------+ +--------+------+ + + +---------+ + | Alcohol Use [...] + + + | Blood Pressure | 130/80 | 11/05/2016 2:36 PM | | | | | PDT | | + + + + + | Pulse | 75 | 11/05/2016 2:36 PM | | | | | PDT | | + + + + + | Temperature | 37.5 C (99.5 F) | 11/05/2016 2:36 PM | | | | | PDT | | + + + + + | Respiratory Rate | 18 | 11/05/2016 2:36 PM | | | | | PDT | | + + + + + | Oxygen Saturation | 97% | 11/05/2016 2:36 PM | | | | | PDT | | + + + + + | Inhaled Oxygen | - | - | | | Concentration | | | | + + + + + | Weight | 112.9 kg (249 lb) | 11/05/2016 2:36 PM | | | | | PDT | | + + + + + | Height | 165.1 cm (5' 5") | 11/05/2016 2:36 PM | | | | | PDT | | + + + + + | Body Mass Index | 41.44 | 11/05/2016 2:36 PM | | | | | PDT | | + + + + + documented in this encounter Patient Instructions Patient Instructions Caren Charles DO - 11/05/2016 2:51 PM PDTUse your albutero l inhaler 2 puffs every 3-4 hours while awake for the next 3 days and then taper down as you 're symptoms improve Take the prednisone burst as directed. Once you have completed the oral prednisone and began 7-10 days using the steroid inhaler Prescription for Cefzil to be taken twice daily for 7 days has been sent to pharmacy Stay well-hydrated Follow-up with your primary care provider documented in this encounter Progress Notes Caren Charles, - 11/05/2016 3:10 PM PDTFormatting of this note might be diffe rent from the original. Subjective: Patient ID: Amparo Harris is a 41 y.o. female. HPI Comments: Patient is here with chief complaint of having a cold ongoing for about 4 day s where she had a sore throat and some nasal congestion. Patient states that when she woke up this morning she felt like it was in her chest. She has a long history of asthma and has been using her albuterol inhaler 2 puffs every 3-4 hours. She's never had use a nebulizer. She states that the last time she was on steroids was about this time last year. She stat es that she has had fevers and chills. She states the cough is productive of purulent-looki ng phlegm. Patient is not complaining of chest pain or shortness of breath. Patient states that she has been on antibiotics quite a number of times in her life and that Zithromax valenzuela s not work well for her. She states that she does well with Cefzil Patient's medications, allergies, past medical, surgical, social and family histories were obtained and reviewed as appropriate. Review of Systems All other systems reviewed and are negative. Objective: Physical Exam Constitutional: She is oriented to person, place, and time. She appears well-developed and well-nourished. HENT: Head: Normocephalic and atraumatic. Nose: Nose normal. Mouth/Throat: Oropharynx is clear and moist. Patient's right TM is slightly retracted but there is no signs of infection at this time. The left TM is normal Cardiovascular: Normal rate, regular rhythm and normal heart sounds. Pulmonary/Chest: Effort normal. She has wheezes. Neurological: She is alert and oriented to person, place, and time. Skin: Skin is warm. Psychiatric: She has a normal mood and affect. Nursing note and vitals reviewed. Assessment: Bronchitis with bronchospasm Plan: Patient was seen and examined. She has findings most consistent with bronchitis with bronc hospasm. She was started on Cefzil to be taken twice daily for the next 7 days. I advised that she use her inhaler 2 puffs every 3-4 hours while awake for the next day or so and then taper that down as her symptoms improve. She is also put on a prednisone burst of 50 mg a day for 5 days. When she completes that she should start using her steroid inhaler and use that for 7-10 days. She should stay well-hydrated. She should use Mucinex daily as an expe ctorant. Patient is comfortable with this plan. She knows to return if symptoms worsen or fail to improve documented in this encounter Plan of Treatment Not on filedocumented as of this encounter Visit Diagnoses + + | Diagnosis | + + | Bronchitis with bronchospasm - Primary Acute bronchitis | + + documented in this encounter
--- OUTSIDE RECORDS SUMMARY | ~2019-08-01 | XMS | Clinical Summary ---
Demographics + + + | Address | [address] | | | [place] [address] | + + + | Home Phone | | + + + | Preferred Language | Unknown | + + + | Marital Status | | + + + | Rastafarian Affiliation | Unknown | + + + | Race | White | + + + | Ethnic Group | Not or | + + + Author + + + | Author | [facility] | + + + | Organization | [facility] | + + + | Address | Unknown | + + + | Phone | Unavailable | + + + Support + + +---------+ + | Name | Relationship | Address | Phone | + + +---------+ + | Chelsea Adler | ECON | Unknown | Unavailable | + + +---------+ + | Alexsander Harris | ECON | Unknown | | + + +---------+ + Care Team Providers + +------+ + | Care Welder Oxyhydrogen Name | Role | Phone | + +------+ + | Fausto Montesinos DO | PCP | | + +------+ + Source Comments LEIDY is fully live on both EpicCare Ambulatory and EpicCare InPatient.[facility] Allergies + + + + + + | Active Allergy | Reactions | Severity | Noted | Comments | | | | | Date | | + + + + + + | Penicillins | | | 04/27/20 | | | | | | 05 | | + + + + + + Medications + + + +---------+------+------+-------+ | Medication | Sig | Dispensed | Refills | Star | End | Statu | | | | | | t | Date | s | | | | | | Date | | | + + + +---------+------+------+-------+ | ESTRACE OR | None Entered | | 0 | | | Activ | | | | | | | | e | + + + +---------+------+------+-------+ | TRAZODONE HCL OR | None Entered | | 0 | | | Activ | | | | | | | | e | + + + +---------+------+------+-------+ Active Problems Not on file Social History + +-------+ +--------+------+ | Tobacco [...] recent travel history available. | + + Last Filed Vital Signs + +---------+ + + | Vital Sign | Reading | Time Taken | Comments | + +---------+ + + | Blood Pressure | 110/80 | 04/27/2005 2:22 PM | | | | | PDT | | + +---------+ + + | Pulse | 76 | 04/27/2005 2:22 PM | | | | | PDT | | + +---------+ + + | Temperature | - | - | | + +---------+ + + | Respiratory Rate | 12 | 04/27/2005 2:22 PM | | | | | PDT | | + +---------+ + + | Oxygen Saturation | - | - | | + +---------+ + + | Inhaled Oxygen | - | - | | | Concentration | | | | + +---------+ + + | Weight | - | - | | + +---------+ + + | Height | - | - | | + +---------+ + + | Body Mass Index | - | - | | + +---------+ + + Plan of Treatment + + + + + | Health Maintenance | Due Date | Last Done | Comments | + + + + + | Influenza (Flu) | | | | | vaccination (#1) | 9 | | | + + + + + | Pneumococcal | Aged Out | | No longer eligible | | vaccination | | | based on patient's | | | | | age to complete this | | | | | topic | + + + + + Results Not on filefrom Last 3 Months Insurance + +--------+ +--------+-------+---------+--------+ | Payer | Benefi | Subscriber | Effect | Phone | Address | Type | | | t Plan | ID | jv | | | | | | / | | Dates | | | | | | Group | | | | | | + +--------+ +--------+-------+---------+--------+ | MEDICAL BILLING REPRESENTATIVE MEDICAID | MEDICAL BILLING REPRESENTATIVE | xxxxxxxx | | | | Medica | | | [place] | | 015-Pr | | | id | | | [place] | | esent | | | | + +--------+ +--------+-------+---------+--------+ + +--------+ +--------+ + + | Guarantor Name | Accoun | Relation to | Date | Phone | Billing Address | | | t Type | Patient | of | | | | | | | | | | + +--------+ +--------+ + + | Amparo Harris E | Person | Self | [birth year] | [address] | | | al/Fam | | 1975 | [phone] | [place] [address] | | | florina | | | 5 (Home) | | + +--------+ +--------+ + +"
--- OUTSIDE RECORDS SUMMARY | ~2019-08-01 | XMS | Encounter Summary ---
Demographics + + + | Address | [address] | | | [place] [address] | + + + | Home Phone | | + + + | Preferred Language | Unknown | + + + | Marital Status | | + + + | Yazidism Affiliation | Unknown | + + + | Race | White | + + + | Ethnic Group | Not or | + + + Author + + + | Author | [facility] | + + + | Organization | [facility] | + + + | Address | [...] Team Providers + +------+ + | Care Associate Relations Specialist Name | Role | Phone | + +------+ + PCP | Unavailable | + +------+ + Encounter Details +--------+ + + + + | Date | Type | Department | Care Team | Description | +--------+ + + + + | 06/22/ | Abstract | [facility] | Sharon Addison, | | | 2014 | | [place] [facility] [address] | [facility] [address] | | | | | [address] | [facility] [place] | | | | | Mailcode: [place] | [phone] | | | | | for Health and | [phone] | | | | | [facility] [address] | | | | | | [place], [place] | | | | | | [address] | | | | | | [phone] | | | +--------+ + + + [...] + + documented as of this encounter Plan of Treatment Not on filedocumented as of this encounter Visit Diagnoses Not on filedocumented in this encounter"
--- OUTSIDE RECORDS SUMMARY | ~2019-08-01 | XMS | Encounter Summary ---
Demographics + + + | Address | [address] | | | [place] [address] | + + + | Home Phone | | + + + | Preferred Language | Unknown | + + + | Marital Status | | + + + | Moravian Affiliation | Unknown | + + + | Race | White | + + + | Ethnic Group | Not or | + + + Author + + + | Author | [facility] | + + + | Organization | [facility] | + + + | Address [...] Team Providers + +------+ + | Care Program Support Assistant Name | Role | Phone | + +------+ + | Fausto Montesinos DO | PCP | | + +------+ + Reason for Visit + + + | Reason | Comments | + + + | Medical Records | | | Review | | + + + Encounter Details +--------+ + + + + | Date | Type | Department | Care Team | Description | +--------+ + + + + | 12/21/ | Abstract | [facility] | Merna Escobedo, | Medical Records | | 2016 | | [facility] [address] | [place] [address] | Review | | | | [address] | [facility] [address] | | | | | Mailcode: Center | [place], [place] | | | | | for Health and | [address] | | | | | [facility] [address] | [phone] | | | | | [place], [place] | | | | | | [address] | | | | | | [phone] | | | +--------+ + + + [...]
--- OUTSIDE RECORDS SUMMARY | ~2019-08-01 | XMS | Encounter Summary ---
Demographics + + + | Address | [address] | | | [place] [address] | + + + | Home Phone | | + + + | Preferred Language | Unknown | + + + | Marital Status | | + + + | Worship Affiliation | Unknown | + + + | Race | Unknown | + + + | Ethnic Group | Unknown | + + + Author + + + | Author | [facility] | | | and [place] | + + + | Organization | [facility] | | | and [place] | + + + | Address | Unknown | + + + | Phone | Unavailable | + + + Support + + + + + | Name | Relationship | Address | Phone | + + + + + | Alexsander Harris | ECON | [address] | | | | | [place] [address] | | + + + + + Care Team Providers + +------+ + | Care Tax Analyst Name | Role | Phone | + +------+ + PCP | Unavailable | + +------+ + Encounter Details +--------+ + + + + | Date | Type | Department | Care Team | Description | +--------+ + + + + | 01/11/ | Hospital | [facility] | Austin Cote MD | | | 2011 - | Encounter | MED CTR MED ONC | [address] | | | | | [address] | [place] [address] | | | 01/12/ | | [place] [address] | [phone] | | | 2011 | | [phone] | | | +--------+ + + + [...] to the hospital to rule out an TX. Serial troponins were checked, which were all [...] Austin Cote MD Internal Medicine/Hospitalist JOB #: [id number] EXT JOB #:[id number] cc: Fausto Montesinos DO <Electronically Signed by [...] [address] | [place] | [phone] | | [facility] | | [address] | | | - LABORATORY | | | | + + + + + | [address] | [address] | [place] | | | [facility] | | [id number] | | | - LABORATORY | | [...] The | | | | | | [employer] | | | | | [...] + | [facility] | [address] | [place], [place] | [phone] | | [facility] | | [address] | | | - LABORATORY | | | | + + + + + | [facility] | [address] | [place], [place] | | | [facility] | | [address] | | | - LABORATORY | | [...] [address] | [place] | [phone] | | [facility] | | [address] | | | - LABORATORY | | | | + + + + + | [facility] [facility] | [address] | [place] | | | [facility] | | [address] | | | - LABORATORY | | [...] The | | | | | | [employer] | | | | | [...] + | [facility] | [address] | [place], [place] | [phone] | | [facility] | | [address] | | | - LABORATORY | | | | + + + + + | [facility] | [address] | [place], [place] | | | [facility] | | [address] | | | - LABORATORY | | | | + + + + + XR Chest AP Portable (01/12/2012 6:05 PM PDT) + + | Specimen | + + | | + + + + + | Narrative | Performed At | + + + | [facility] Diagnostic Imaging Department | [facility] | | [address] [facility] | [facility] | | PORTABLE CHEST, 01/12/2012 | DIAG [...] Transcribed Date/Time: 01/12/2012 17:13 | | | Woods Overseer: <Electronically Signed by Ventura Stewart, | | | MD> 01/15/12 7882 | | + + + + + | Procedure Note | + + | Keo, Rad Conversion - 10/03/2013 5:22 PM [facility] | | Diagnostic Imaging Department [address] [place] [address] | | PORTABLE CHEST, 01/12/2012 CLINICAL HISTORY: [...] Ventura Hoover | | MD Terry> 01/15/12 6822 | |COMPARISON: None. | | | |FINDINGS: [...] 16:44 | |Transcribed Date/Time: 01/12/2012 17:13 | |Woods Overseer: | |<Electronically Signed by Ventura Stewart MD> 01/15/12 1832 | + + + +---------+ + + | Performing | Address | City/State/[facility] | Phone Number | | [...] Performed At | + + + | [facility] | [facility] | | [address] [facility] [facility] | [facility] | | RIGHT VENOUS DUPLEX: 01/12/2012 | [...] | | 16:17 Transcribed Date/Time: 01/12/2012 16:59 Woods Overseer: | | | RB <Electronically Signed by Ventura Stewart MD> 01/15/12 2982 | | + + + + + | Procedure Note | + + | Keo, Rad Conversion - 10/03/2013 5:22 PM [facility] | | Diagnostic Imaging Department [address] [place] [address] | | RIGHT VENOUS DUPLEX: 01/12/2012 CLINICAL [...] 16:17 | |Transcribed Date/Time: 01/12/2012 16:59 | |Woods Overseer: | |<Electronically Signed by Ventura Stewart MD> 01/15/122 | + + + +---------+ + + | Performing | Address | City/State/Zipcode | Phone Number | | Organization | | | | + +---------+ + + | [place] | | | | | [facility] | | | | + +---------+ + + D-Dimer (01/12/2012 2:46 PM PDT) + + + + + + | Component | Value | Ref Range | Performed | Pathologist | | | | | At | Signature | + + + + + + | D-DIMER, | <0.22Comment: This | <0.50 ug/mlFEU | [facility] | | | QUANTITATIV | quantitative D-Dimer | | [facility] | | | E | assay [...] + | [facility] | [address] | [place] | [phone] | | [facility] | | [id number] | | | - LABORATORY | | | | + + + + + | [facility] [facility] | [address] | [place] | | | [facility] | | [id number] | | | - LABORATORY | | [...] (H) | 70 - 109 mg/dL | [place] | | | | | | [facility] | | | | | | [...] + | [facility] [facility] | [address] | [place], [place] | [phone] | | [facility] | | [address] | | | - LABORATORY | | | | + + + + + | [facility] | [address] | [place], [place] | | | [facility] | | [address] | | | - LABORATORY | | [...] The | | | | | | [employer] | | | | | [...] + | [facility] | [address] | [place] | [phone] | | [facility] | | [address] | | | - LABORATORY | | | | + + + + + | [facility] | [address] | [place] | | | [facility] | | [address] | | | - LABORATORY | | [...] | | | | | | [facility] | | | | | | MEDICAL | | | | | | CENTER - | | | | | | LABORATORY | | + +-------+ + + + | RBC | 3.94 | 3.70 - 5.20 | [facility] | | | | | M/uL | [facility] | | | | | | [...] + | [facility] | [address] | [place] | [phone] | | [facility] | | [address] | | | - LABORATORY | | | | + + + + + | [facility] | [address] | [place] | | | [facility] | | [address] | | | - LABORATORY | | | | + + + + + documented in this encounter Visit Diagnoses Not on filedocumented in this encounter"
--- OUTSIDE RECORDS SUMMARY | ~2019-08-01 | XMS | Encounter Summary ---
Demographics + + + | Address | [address] | | | [place] [address] | + + + | Home Phone | | + + + | Preferred Language | Unknown | + + + | Marital Status | | + + + | Caodaism Affiliation | Unknown | + + + | Race | Unknown | + + + | Ethnic Group | Unknown | + + + Author + + + | Author | [facility] | | | and [place] | + + + | Organization | [facility] | | | and [place] | + + + | Address | Unknown | + + + | Phone | Unavailable | + + + Support + + + + + | Name | Relationship | Address | Phone | + + + + + | Alexsnader Harris | ECON | [address] | | | | | [place] [address] | | + + + + + Care Team Providers + +------+ + | Care Environmental Science Technician Name | Role | Phone | + +------+ + | Haily Beltran NP | PCP | | + +------+ + Reason for Visit + + + | Reason | Comments | + + + | CPAP Follow Up | | + + + Encounter Details +--------+---------+ + + + | Date | Type | Department | Care Team | Description | +--------+---------+ + + + | 09/13/ | Office | [facility] | Raquel Figueroa MD | ABILIO (obstructive | | 2018 | Visit | SLEEP DISORDER [address] | [address] | sleep apnea) | | | | [place] | [place] | (Primary Dx); | | | | [place] [address] | [address] | Circadian rhythm | | | | [phone] | | sleep disorder, | | | | | | delayed sleep phase | | | | | | type | +--------+---------+ + + + Social History [...] + | Blood Pressure | 140/90 | 09/13/2017 2:42 PM | | | | | PST | | + + + + + | Pulse | 82 | 09/13/2017 2:42 PM | | | | | PST | | + + + + + | Temperature | - | - | | + + + + + | Respiratory Rate | 16 | 09/13/2017 2:42 PM | | | | | PST | | + + + + + | Oxygen Saturation | 93% | 09/13/2017 2:42 PM | | | | | PST | | + + + + + | Inhaled Oxygen | - | - | | | Concentration | | | | + + + + + | Weight | 112.4 kg (247 lb | 09/13/2017 2:42 PM | | | | 12.8 oz) | PST | | + + + + + | Height | - | - | | + + + + + | Body Mass Index | 43.9 | 07/30/2017 10:29 AM | | | | | PST | | + + + + + documented in this encounter Patient Instructions Patient Instructions Raquel Figueroa MD - 09/13/2017 3:00 PM PST- We will send a prescripti on for CPAP machine to your home care company. - Please start using your CPAP as directed. - Follow up with Dr. Figueroa in 2 weeks. Please bring your sleep diary. - Insurance compliance criteria: Once you received your machine, you have 90 days in which you must use your machine for 30 consecutive days and for 70% of those 30 days you must use your machine for >= 4 hours. P M PST documented in this encounter Progress Notes Raquel Figueroa MD - 09/13/2017 3:00 PM PST The patient comes in to discuss her sleep study results. My interpretation of the patient' s sleep study, which I have reviewed with the patient, is as follows: Polysomnogram Report on Amparo Harris performed on August 14, 2017. PATIENT IDENTIFICATION: Amparo Harris IS a 42 y.o..-year-old female. 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 BMI: 44 Technical Information: Please see technical data which is attached. Definitions (The AASM Manual for the Scoring of Sleep and Associated Events, Version 2.4; 2 017): Apnea: There is a drop in the peak signal excursion by 90% or greater of pre-sol nt baseline using an oronasal thermal sensor (diagnostic study), PAP device flow (titration study), or an alternative apnea sensor (diagnostic study); the duration of the 90% or greate r drop in sensor signal is 10 seconds or longer. Obstructive Apnea: Event associated with continued or increased inspi ratory effort throughout the entire period of absent airflow. Central Apnea: Event associated with absent inspiratory effort throug hout the entire period of absent airflow. Mixed Apnea: Event associated with absent inspiratory effort in the i nitial portion of the event followed by resumption of inspiratory effort during the second p ortion of the event. Hypopnea: Nasal pressure excursion drop by 30% or more from baseline, lasting at lease 10 seconds and 90% of the event's duration meets this amplitude criteria. This is ass ociated with a 4% or greater desaturation from pre-baseline Respiratory Event Related Arousal: A sequence of breaths lasting 10 seconds or l onger characterized by increasing respiratory effort or by flattening of the inspiratory por tion of the nasal pressure (diagnostic study) or PAP device flow (titration study) waveform leading to arousal from sleep when the sequence of breaths does not meet criteria for an petroleum geology faculty member ea or hypopnea. SLEEP STUDY HISTORY: NONE. REVELANT MEDICATIONS: None. SUBJECTIVE: The patient rated sleep quality during sleep study as better. Specialty Molder note: patient tried DreamwEar nasal mask and small AmaraView ffm, and the ffm wa s comfortable. SLEEP ARCHITECTURE AND EEG: Total sleep time was 401 minutes. Sleep efficiency was 67.6% and was decreased. Sleep onset latency was 55 minutes and was increased. REM latency was 115.5 minutes and was increased. Percent of time in stage N3 was 14.7% and was decreased. Percent of time in stage REM was 30 % and was increased. Arousal Index for this diagnostic study was 13/hour and was normal, with 7.5 respiratory arousals/hour and 5.1 spontaneous arousals/hour. RESPIRATORY: Respiratory disturbance index (RDI) was 13.3, consisting of total 54 hypopneas, 2 obstru ctive apneas, 0 mixed apneas, and 18 central apneas and 15 RERAs. AHI was 11.1 and mildly el evated.. Sleep disordered breathing was worsened in supine position with supine AHI of 28.1. Th e patient spent 27.7% of total sleep time in supine position. Nonsupine AHI was normal at 4 0.6. Sleep disordered breathing was not worsened in REM sleep with REM AHI of 10.5. NREM AHI was 11.3.. Mean SpO2 was 93 %, eliana SpO2 was 84 %, and amount of total sleep time spent below SpO2 of 90% was 6.1 minutes. 4% Oxygen Desaturation Index (MYRIAM) was 12 and was mildly elevated. Snoring was loud. ETCO2 was not elevated. There were no murmurs of central apneas in supine non-REM sleep, and in sleep-wake trans ition. These ceased once sleep stabilized. Devyn-Farmer breathing was not observed. LIMB MOVEMENTS: Total sleep periodic limb movement index was 1.8 and was not increased. EKG: Normal sinus rhythm was noted with mean heart rate of 69, 68, and 75 beats per minute in wa ke, non-REM, and REM sleep respectively.. INTERPRETATION: - This diagnostic polysomnography showed mild sleep apnea which was predominantly obstructi ve in nature. Sleep apnea was worsened in supine position, but was not worsened in stage R sleep. Less than 27.7% of total sleep time in supine position, and 30% of total sleep time was spent in stage R sleep. Eliana SpO2 was 84 %, and amount of total sleep time spent below SpO2 of 90% was 6.1 minutes. - Sleep efficiency was decreased, sleep onset latency was increased. Patient though rated her sleep better than usual. She has history of chronic insomnia. - Excessive leg movements was not observed. RECOMMENDATIONS: 1. A trial of auto-PAP at 5-15 cm H2O with a small AmaraView ffm is recommended. 2. Management of insomnia with CBT-I, and optimization of sleep hygiene is recommended. Today, I discussed the above results in detail with patient. She is interested in trial of CPAP. She says she has slept much better in sleep lab to her sleep efficiency was decreased at 67 %. She goes to bed at 10 PM, and it takes 2-4 hours for her to fall asleep. She is a night owl. Her goes to bed at 10 PM, and he now sleeps in a separate room. She has 2 do gs and 2 cats sleeping in her bed. She wakes up between 4 and 8 AM. Sometimes she wakes up and her wakes up or her animals wake her up. She sometimes takes melatonin at bedt letitia and sometimes takes Benadryl. I discussed circadian rhythm delayed sleep phase, and the health risks and consequences of chronic circadian dys-synchrony. I discussed with her that if she really has delayed sleep phase, the timing of taking melatonin and light therapy are very important. I instructed he r to bring a two-week sleep diary for next visit. Her sleep environment including pets also play a role in her sleep disturbance. Vitals: 09/13/17 1442 BP: 140/90 Pulse: 82 Resp: 16 PainSc: 0 - No pain Plan: Start auto CPAP at 5-15 cm H2O with patient's preference mask. 2-week sleep diary. Follow-up with Dr. Figueroa in 2 weeks. I spent 15 minutes face to face with the patient, with over 50% spent in counseling and/or coordination of care regarding sleep apnea and circadian rhythm disorder. documented in this enco unter Plan of Treatment Not on filedocumented as of this encounter Visit Diagnoses + + | Diagnosis | + + | ABILIO (obstructive sleep apnea) - Primary Obstructive sleep apnea (adult) (pediatric) | + + | Circadian rhythm sleep disorder, delayed sleep phase type | + + documented in this encounter"
--- OUTSIDE RECORDS SUMMARY | ~2019-08-01 | XMS | Encounter Summary ---
Demographics + + + | Address | [address] | | | [place] [address] | + + + | Home Phone | | + + + | Preferred Language | Unknown | + + + | Marital Status | | + + + | Spiritism Affiliation | Unknown | + + + | Race | White | + + + | Ethnic Group | Not or | + + + Author + + + | Author | [facility] | + + + | Organization | [facility] | + + + | Address | [...] Team Providers + +------+ + | Care Director Orange Name | Role | Phone | + +------+ + | Fausto Montesinos DO | PCP | | + +------+ + Reason for Visit +--------+ + | Reason | Comments | +--------+ + | Other | HOMEWORK | +--------+ + Encounter Details +--------+ + + + + | Date | Type | Department | Care Team | Description | +--------+ + + + + | 12/07/ | Documentati | Dig[facility]ive [facility] | Merna Escobedo, | Other (HOMEWORK) | | 2016 | on | Center at [address] | BUILDING OPERATOR [address] | | | | | [facility] [address] | [facility] [address] | | | | | Mailcode: Center | [place], [place] | | | | | for Health and | [address] | | | | | [facility] [address] | [phone] | | | | | [place], [place] | | | | | | [address] | | | | | | [phone] | | | +--------+ + + + [...]
--- OUTSIDE RECORDS SUMMARY | ~2019-08-01 | XMS | Encounter Summary ---
Demographics + + + | Address | [address] | | | [place] [address] | + + + | Home Phone | | + + + | Preferred Language | Unknown | + + + | Marital Status | | + + + | Synagogue Affiliation | Unknown | + + + | Race | Unknown | + + + | Ethnic Group | Unknown | + + + Author + + + | Author | [facility] | | | and [place] | + + + | Organization | [facility] | | | and [place] | + + + | Address | Unknown | + + + | Phone | Unavailable | + + + Support + + + + + | Name | Relationship | Address | Phone | + + + + + | Alexsander Harris | ECON | [address] | | | | | [place] [address] | | + + + + + Care Team Providers + +------+ + | Care Nut Sheller Machine Operator Name | Role | Phone | + +------+ + | Haily Beltran NP | PCP | | + +------+ + Reason for Visit Evaluate & Treat (Routine) +--------+--------+ + + + + | Status | Reason | Specialty | Diagnoses / | Referred By | Referred To | | | | | Procedures | Contact | Contact | +--------+--------+ + + + + | Closed | | Audiology | Diagnoses | Adrianna, | Jeniffer | | | | | perceived | Dada Eduardo, | MS Vladimir | | | | | hearing | MD [address] | CCC-A [address] | | | | | changes/self | [address] | [address] | | | | | /[place] | [place], | [place] | | | | | rough/Patien | [place] [address] | [place], [place] | | | | | t to follow | Phone: | [phone] Phone: | | | | | up with Dr | [phone] | [phone] | | | | | Adrianna alvarado | Fax: | Fax: | | | | | ENT care | [phone] | [phone] | | | | | Procedures | | | | | | | OFFICE VISIT | | | | | | | REGULAR | | | +--------+--------+ + + + + Encounter Details +--------+---------+ + + + | Date | Type | Department | Care Team | Description | +--------+---------+ + + + | 06/05/ | Office | [facility] [place] | Vladimir Swift MS | Ear pressure, | | 2019 | Visit | AUDIOLOGY AND | CCC-A [address] | bilateral (Primary | | | | [facility] | [address] | Dx); Normal hearing | | | | [address] | [place] [address] | noted on examination | | | | [address] [place] | [phone] | | | | | [place] [address] | | | | | | [phone] | | | +--------+---------+ + + + [...] + + documented as of this encounter Progress Notes RodoVladimir lombardo MS CCC-A - 06/05/2019 11:00 AM PDTReferring Provider: Dada Rodas MD M.D. Ms. Harris described her ears as feeling like she is under water. History includes child yoder ear infection. Otoscopy showed scarring of the right ear drum. Results of Hearing Test: Right ear--Pure tone air and bone conduction testing showed 15-20d B threshold at 250 Hz through 8 KHz. Left ear --Pure tone air and bone conduction testing showed 10-20dB threshold at 250 Hz through 8 KHz. Speech Recognition Thresholds were 15dB in the right ear and 15dB in the left ear. Speech Discrimination Scores were 96% in right ear and 100% in the left ear. Tympanometry showed normal type A tracings in both ears. Impression and Recommendation: Normal hearing sensitivity in both ears. Ms. Harris was reassured that her hearing is fine and [id number] communication was suggested. Follow-up care with Dr. Rodas at [facility]. Thank you. documented in thi s encounter Plan of Treatment Not on filedocumented as of this encounter Procedures + +--------+ + + + | Procedure Name | Priori | Date/Time | Associated Diagnosis | Comments | | | ty | | | | + +--------+ + + + | DIAGNOSTIC REPORT - | | 06/05/2019 | | Results for this | | EXTERNAL SCAN | | 12:00 AM | | procedure are in the | | | | PDT | | results section. | + +--------+ + + + documented in this encounter Results DIAGNOSTIC REPORT - EXTERNAL SCAN (06/05/2019 12:00 AM PDT) + + + | Narrative | Performed At | + + + | Ordered by an | | | unspecified provider. | | + + + documented in this encounter Visit Diagnoses + + | Diagnosis | + + | Ear pressure, bilateral - Primary | + + | Normal hearing noted on examination | + + documented in this encounter"
--- OUTSIDE RECORDS SUMMARY | ~2019-08-01 | XMS | Encounter Summary ---
Demographics + + + | Address | [address] | | | [place] [address] | + + + | Home Phone | | + + + | Preferred Language | Unknown | + + + | Marital Status | | + + + | Sikh Affiliation | Unknown | + + + | Race | Unknown | + + + | Ethnic Group | Unknown | + + + Author + + + | Author | [facility] | | | and [place] | + + + | Organization | [facility] | | | and [place] | + + + | Address | Unknown | + + + | Phone | Unavailable | + + + Support + + + + + | Name | Relationship | Address | Phone | + + + + + | Alexsander Harris | ECON | [address] | | | | | [place] [address] | | + + + + + Care Team Providers + +------+ + | Care Spectacle Truer Name | Role | Phone | + [...] + | 09/13/ | Office | [facility] | Raquel Figueroa MD | ABILIO (obstructive | | 2018 | Visit | SLEEP DISORDER [address] | [address] | sleep apnea) | | | | [place] | [place] | (Primary Dx); | | | | [place] [address] | [address] | Circadian rhythm | | | | [phone] | | sleep disorder, | | | [...] witnessed apnea for 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 BMI: 44 Technical Information: Please see [...] breaths does not meet criteria for an rubber goods tester water ea or hypopnea. SLEEP STUDY HISTORY: NONE. REVELANT MEDICATIONS: None. SUBJECTIVE: The patient rated sleep quality during sleep study as better. Qa Auditor note: patient tried DreamwEar nasal mask and [...]
--- OUTSIDE RECORDS SUMMARY | ~2019-08-01 | XMS | Encounter Summary ---
Demographics + + + | Address | [address] | | | [place] [address] | + + + | Home Phone | | + + + | Preferred Language | Unknown | + + + | Marital Status | | + + + | Synagogue Affiliation | Unknown | + + + | Race | White | + + + | Ethnic Group | Not or | + + + Author + + + | Author | [facility] | + + + | Organization | [facility] | + + + | Address [...] Team Providers + +------+ + | Care Tubing Tester Name | Role | Phone | + [...] on | Center [address] | EDITORIAL ASSISTANT [address] | | | | | [facility] [address] [place] | [facility] [address] | | | | | Mailcode: Center | [place], [place] | | | | | for Health and | [address] | | | | | [facility] 2 | [phone] | | | | | [place], [place] | | | | | | [address] | | | | | | [phone] | | | +--------+ + + + [...]
--- OUTSIDE RECORDS SUMMARY | ~2019-08-01 | XMS | Encounter Summary ---
Demographics + + + | Address | [address] | | | [place] [address] | + + + | Home Phone | | + + + | Preferred Language | Unknown | + + + | Marital Status | | + + + | Church Affiliation | Unknown | + + + | Race | Unknown | + + + | Ethnic Group | Unknown | + + + Author + + + | Author | [facility] | | | and [place] | + + + | Organization | [facility] | | | and [...] | | | | | [place] [address] | | + + + + + Care Team Providers + +------+ + | Care Founder Ceo & President Name | Role | Phone | + +------+ + | Haily Beltran NP | PCP | | + +------+ + Reason for Visit + + + | Reason | Comments | + + + | Abdominal Pain | abdominal pain above umbillicus, tender abd, fatigue, sweaty, | | | SOB, sore throat | + + + Encounter Details +--------+ + + + + | Date | Type | Department | Care Team | Description | +--------+ + + + + | 01/17/ | Clinical | [facility] | Donna Matta, | Patient left after | | 2017 | Support | CARE [address] | [address] | triage (Primary Dx) | | | | [place] | [place], [place] | | | | | [address] | [address] | | | | | [phone] | | | +--------+ + + + [...] + + + | Blood Pressure | 142/92 | 01/17/2018 3:53 PM | | | | | PDT | | + + + + + | Pulse | 74 | 01/17/2018 3:53 PM | | | | | PDT | | + + + + + | Temperature | 35.8 C (96.5 F) | 01/17/2018 3:53 PM | | | | | PDT | | + + + + + | Respiratory Rate | - | - | | + + + + + | Oxygen Saturation | 97% | 01/17/2018 3:53 PM | | | | | PDT | | + + + + + | Inhaled Oxygen | - | - | | | Concentration | | | | + + + + + | Weight | - | - | | + + + + + | Height | - | - | | + + + + + | Body Mass Index | - | - | | + + + + + documented in this encounter Progress Notes Carolina Parrish RN - 01/17/2018 3:45 PM PDTFormatting of this note might be different fr om the original. This is a Rapid Triage & this patient was not seen by a physician during this triage: Chief Complaint Patient presents with Abdominal Pain abdominal pain above umbillicus, tender abd, fatigue, sweaty, SOB, sore throat BP (!) 142/92 | Pulse 74 | Temp 35.8 C (96.5 F) (Temporal) | SpO2 97% Relevant History related to today's visit: Past Medical History: Diagnosis Date Anxiety Cancer (HCC) uterine Depression Sleep disorder due to a general medical condition, insomnia type Spondylitis, ankylosing (HCC) Thyroid disease MD Consulted: Dr. Matta Emergency Room has been recommended for this patient. The patient has chosen: [facility]--[x] [place] [facility].-- [] Other: Reason for triage recommendation: Out of Scope of Practice or Complex Medical Needs Suspected Cardiac: [] Seizures: [] Advanced Respiratory Condition: [] Head Injury with LOC: [] Pre- Problems: [] Victim of Crime: [] Child/Elder Abuse: [] Severe Abdominal Pain: [] "Worst pain in life": [] Need for IV Medication: [] After-hours Radiology Reading needs by [facility]: [] Patient with complex workup needs to close to closing time: [] Patient in need of hospital admission: [] Patient at risk if to remain in Urgent Care: [] Patient refused assessment during triage: [] The recommended mode of transportation is: Patient/Family Transport-- X Staff Transport-- EMS-- Other: Patient has Accepted or Declined these recommendations: [x] Accept [] Decline Patient/guardian signature will be scanned in to EMR *Patient has been advised to the reasons that he/she is being triaged to the ED* [x] *Report has been called to the ED charge nurse regarding triage findings* [x] Nurse's name who took report: STEPHANIA Mi *The patient has been informed that the ED staff will be aware of his/her arrival, although patient may not be roomed immediately, they will be seen as soon as possible.* [x] documented in this e ncounter Plan of Treatment Not on filedocumented as of this encounter Visit Diagnoses + + | Diagnosis | + + | Patient left after triage - Primary | + + documented in this encounter
--- OUTSIDE RECORDS SUMMARY | ~2019-08-01 | XMS | Encounter Summary ---
Demographics + + + | Address | [address] | | | [place] [address] | + + + | Home Phone | | + + + | Preferred Language | Unknown | + + + | Marital Status | | + + + | Jehovah'S Witness Affiliation | Unknown | + + + | Race | White | + + + | Ethnic Group | Not or | + + + Author + + + | Author | [facility] | + + + | Organization | [facility] | + + + | Address [...] Team Providers + +------+ + | Care Manager Of Housekeeping Name | Role | Phone | + +------+ + | Fausto Montesinos DO | PCP | | + +------+ + Encounter Details +--------+ + + + + | Date | Type | Department | Care Team | Description | +--------+ + + + + | 03/28/ | Abstract | [facility] | Clinic, Surgery | | | 2015 | | [facility] [address] | | | | | | [address] | | | | | | Mailcode: Center | | | | | | for Health and | | | | | | Healing, Building [address] | | | | | | [place], [place] | | | | | | [address] | | | | | | [phone] | | | +--------+ + + + [...]
--- OUTSIDE RECORDS SUMMARY | ~2019-08-01 | XMS | Encounter Summary ---
Demographics + + + | Address | [address] | | | [place] [address] | + + + | Home Phone | | + + + | Preferred Language | Unknown | + + + | Marital Status | | + + + | Temple Affiliation | Unknown | + + + | Race | Unknown | + + + | Ethnic Group | Unknown | + + + Author + + + | Author | [facility] | | | and [place] | + + + | Organization | [facility] | | | and [place] | + + + | Address | Unknown | + + + | Phone | Unavailable | + + + Support + + + + + | Name | Relationship | Address | Phone | + + + + + | Alexsander Harris | ECON | [address] | | | | | [place] [address] | | + + + + + Care Team Providers + +------+ + | Care Health Diagnostics Teacher Name | Role | Phone | + [...] + | 01/17/ | Clinical | [facility] | Donna Matta, | Patient left after | | 2017 | Support | CARE [address] | [address] | triage (Primary Dx) | | | | [place] | [place], [place] | | | | | [address] | [address] | | | | | [phone] | | | +--------+ + + + [...] for this patient. The patient has chosen: [facility]--[x] [place] MED CTR.-- [] Other: Reason for triage recommendation: Out of Scope of Practice or Complex Medical Needs Suspected Cardiac: [] Seizures: [] Advanced Respiratory Condition: [] Head Injury with LOC: [] Pre- Problems: [] Victim of Crime: [] Child/Elder Abuse: [] Severe Abdominal Pain: [] "Worst pain in life": [] Need for IV Medication: [] After-hours Radiology Reading needs by [facility]: [] Patient with complex workup needs [...]
--- OUTSIDE RECORDS SUMMARY | ~2019-08-01 | XMS | Encounter Summary ---
Demographics + + + | Address | [address] | | | [place] [address] | + + + | Home Phone | | + + + | Preferred Language | Unknown | + + + | Marital Status | | + + + | Moravian Affiliation | Unknown | + + + | Race | White | + + + | Ethnic Group | Not or | + + + Author + + + | Author | [facility] | + + + | Organization | [facility] | + + + | [...] Team Providers + +------+ + | Care Cephalometric Analyst Name | Role | Phone | + +------+ + PCP | Unavailable | + +------+ + Encounter Details +--------+ + + + + | Date | Type | Department | Care Team | Description | +--------+ + + + + | 06/22/ | Abstract | [facility] | Sharon Addison, | | | 2014 | | [place] [facility] [address] | [facility] [address] | | | | | [address] | [place] [place] | | | | | Mailcode: [place] | [address] | | | | | for Health and | [phone] | | | | | [facility], [facility] [address] | | | | | | [place], [place] | | | | | | [address] | | | | | | [phone] | | | +--------+ + + + [...]
--- OUTSIDE RECORDS SUMMARY | ~2019-08-01 | XMS | Encounter Summary ---
Demographics + + + | Address | [address] [facility] [facility] | | | [place] [address] | + + + | Home Phone | | + + + | Preferred Language | Unknown | + + + | Marital Status | | + + + | Baptist Affiliation | Unknown | + + + | Race | Unknown | + + + | Ethnic Group | Unknown | + + + Author + + + | Author | [facility] | | | and [place] | + + + | Organization | [facility] | | | and [place] | + + + | Address | Unknown | + + + | Phone | Unavailable | + + + Support + + + + + | Name | Relationship | Address | Phone | + + + + + | Alexsander Harris | ECON | [address] | | | | | [place] [address] | | + + + + + Care Team Providers + +------+ + | Care Research Group Director Name | Role | Phone | + +------+ + PCP | Unavailable | + +------+ + Encounter Details +--------+ + + + + | Date | Type | Department | Care Team | Description | +--------+ + + + + | 01/22/ | [facility] | [facility] | Madhu Agudelo, | | | 2007 | Encounter | MED CTR XRAY [address] | MD [address] | | | | | [place] | [address] | | | | | [place] [address] | [address] | | | | | [phone] | [phone] | | | | | | | | +--------+ + + + [...]
--- OUTSIDE RECORDS SUMMARY | ~2019-08-01 | XMS | Encounter Summary ---
Demographics + + + | Address | [address] | | | [place] [address] | + + + | Home Phone | | + + + | Preferred Language | Unknown | + + + | Marital Status | | + + + | Restoration Affiliation | Unknown | + + + | Race | Unknown | + + + | Ethnic Group | Unknown | + + + Author + + + | Author | [facility] | | | and [place] | + + + | Organization | [facility] | | | and [place] | + + + | Address | Unknown | + + + | Phone | Unavailable | + + + Support + + + + + | Name | Relationship | Address | Phone | + + + + + | Alexsander Harris | ECON | [address] | | | | | [place] [address] | | + + + + + Care Team Providers + +------+ + | Care Spanish Literature Professor Name | Role | Phone | + +------+ + | Haily Beltran NP | PCP | | + +------+ + Reason for Visit Evaluate & Treat (Routine) +--------+ + + [...] | (obstructive | [address] | [place] | | | | | sleep | [address] [place] | [place], | | | | | apnea) | [place] | [place] [address] | | | | | Procedures | [id number] | Phone: | | | | | [place] | Phone: | [phone] | | | | | 6/>YRS SLEEP | [phone] | Fax: | | | | | W/CPAP 4/> | Fax: | [phone] | | | | | ADDL SUSI | [phone] | | | | | | [place] | | | | | | | [...] | +--------+ + + + + + Encounter Details +--------+ + + + + | Date | Type | Department | Care Team | Description | +--------+ + + + + | 08/14/ | Hospital | [facility] | Raquel Figueroa MD | ABILIO (obstructive | | 2017 - | Encounter | MED CTR SLEEP | [address] | sleep apnea) | | | | CENTER [address] | [place] | | | 08/15/ | | [place] | [address] | | | 2016 | | [address] | | | | | | [phone] | | | +--------+ + + + [...] + + documented as of this encounter Medications at Time of Discharge + + + +---------+--------+ + | Medication | Sig | Dispensed | Refills | Start | End Date | | | | | | Date | | + + + +---------+--------+ + | albuterol 2.5 mg/3 | Take 2.5 mg by | | 0 | | | | mL nebulizer | nebulization as | | | | | | solution | needed for Wheezing. | | | | | + + + +---------+--------+ + | APPLE CIDER | Take by mouth 2 | | 0 | | | | VINEGAR PO | times daily. | | | | | + + + +---------+--------+ + | Ascorbic Acid | Take 2,000 mg by | | 0 | | | | (VITAMIN C) 1000 MG | mouth Daily. | | | | | | tablet | | | | | | + + + +---------+--------+ + | B Complex Vitamins | Take by mouth | | 0 | | | | (B COMPLEX PO) | Daily. | | | | | + + + +---------+--------+ + | Biotin 5000 MCG | Take 5,000 mcg by | | 0 | | | | CAPS | mouth Daily. | | | | | + + + +---------+--------+ + | cetirizine | Take 10 mg by mouth | | 0 | | | | (ZYRTEC) 10 mg | Daily. | | | | | | tablet | | | | | | + + + +---------+--------+ + | Cholecalciferol | Take 10,000 Units by | | 0 | | | | (VITAMIN D-3) [address] | mouth Daily. | | | | | | units CAPS | | | | | | + + + +---------+--------+ + | Coenzyme Q10 | Take 120 mg by mouth | | 0 | | | | (COQ10) 100 MG CAPS | 2 times daily. | | | | | + + + +---------+--------+ + | [place] 3 1000 MG | Take 2,000 mg by | | 0 | | | | CAPS | mouth 2 times daily. | | | | | + + + +---------+--------+ + | THYROID PO | Take by mouth | | 0 | | | | | Daily. | | | | | + + + +---------+--------+ + | Turmeric (CURCUMIN | Take by mouth 3 | | 0 | | | | 95) 500 MG CAPS | times daily. | | | | | + + + +---------+--------+ + | vitamin E 1000 | Take 1,000 Units by | | 0 | | | | UNITS capsule | mouth Daily. | | | | | + + + +---------+--------+ + | magnesium, as | Take 500 mg by mouth | | 0 | | | | oxide, 250 MG tablet | Daily. | | | | 9 | + + + +---------+--------+ + documented as of this encounter Plan of Treatment Not on filedocumented as of this encounter Procedures + +--------+ + + + | Procedure Name | Priori | Date/Time | Associated Diagnosis | Comments | | | ty | | | | + +--------+ + + + | SLEEP STUDY | Routin | 08/15/2017 | | Results for this | | DIAGNOSTIC ONLY NO | e | 12:54 PM | | procedure are in the | | PAP | | PST | | results section. | + +--------+ + + + documented in this encounter Results Sleep study diagnostic only (no PAP) (08/15/2017 12:54 PM PST) + + + | Narrative | Performed At | + + + | Raquel Figueroa | | | 08/15/2017 13:15 [facility] | | | [place] [address] Polysomnogram | | | Report on Amparo Harris performed on August 14, 2017. PATIENT | | | IDENTIFICATION: Amparo Harris IS a 42 y.o..-year-old female. | | | with a history of hypothyroidism and PTSD, presenting with snoring, | | | and witnessed apnea for evaluation of obstructive sleep apnea.BMI: 44 | | | Technical Information: Please see technical data which is attached. | | | Definitions (The AASM Manual for the Scoring of Sleep and Associated | | | Events, Version 2.4; 2017): Apnea: There is a drop in the peak signal | | | excursion by 90% or greater of pre-event baseline using an oronasal | | | thermal sensor (diagnostic study), PAP device flow (titration study), | | | or an alternative apnea sensor (diagnostic study); the duration of the | | | 90% or greater drop in sensor signal is 10 seconds or longer. | | | Obstructive Apnea: Event associated with continued or increased | | | inspiratory effort throughout the entire period of absent airflow. | | | Central Apnea: Event associated with absent inspiratory effort | | | throughout the entire period of absent airflow. Mixed Apnea: Event | | | associated with absent inspiratory effort in the initial portion of | | | the event followed by resumption of inspiratory effort during the | | | second portion of the event. Hypopnea: Nasal pressure excursion drop | | | by 30% or more from baseline, lasting at lease 10 seconds and 90% of | | | the event's duration meets this amplitude criteria. This is associated | | | with a 4% or greater desaturation from pre-baseline Respiratory | | | Event Related Arousal: A sequence of breaths lasting 10 seconds or | | | longer characterized by increasing respiratory effort or by flattening | | | of the inspiratory portion of the nasal pressure (diagnostic study) | | | or PAP device flow (titration study) waveform leading to arousal from | | | sleep when the sequence of breaths does not meet criteria for an apnea | | | or hypopnea. SLEEP STUDY HISTORY:NONE. REVELANT MEDICATIONS: None. | | | SUBJECTIVE:The patient rated sleep quality during sleep study as | | | better. Charge Preparation Technician note: patient tried DreamwEar nasal mask and small | | | AmaraView ffm, and the ffm was comfortable. SLEEP ARCHITECTURE AND | | | EEG:? Total sleep time was 401 minutes. Sleep efficiency was 67.6% | | | and was decreased.? Sleep onset latency was 55 minutes and was | | | increased.? REM latency was 115.5 minutes and was increased.? Percent | | | of time in stage N3 was 14.7% and was decreased.? Percent of time in | | | stage REM was 30 % and was increased.? Arousal Index for this | | | diagnostic study was 13/hour and was normal, with 7.5 respiratory | | | arousals/hour and 5.1 spontaneous arousals/hour. RESPIRATORY:? | | | Respiratory disturbance index (RDI) was 13.3, consisting of total 54 | | | hypopneas, 2 obstructive apneas, 0 mixed apneas, and 18 central apneas | | | and 15 RERAs. AHI was 11.1 and mildly elevated..? Sleep disordered | | | breathing was worsened in supine position with supine AHI of 28.1. | | | The patient spent 27.7% of total sleep time in supine position. | | | Nonsupine AHI was normal at 40.6.? Sleep disordered breathing was | | | not worsened in REM sleep with REM AHI of 10.5. NREM AHI was 11.3..? | | | Mean SpO2 was 93 %, arthur SpO2 was 84 %, and amount of total sleep | | | time spent below SpO2 of 90% was 6.1 minutes. 4% Oxygen Desaturation | | | Index (MYRIAM) was 12 and was mildly elevated.? Snoring was loud.? ETCO2 | | | was not elevated.? There were no murmurs of central apneas in supine | | | non-REM sleep, and in sleep-wake transition. These ceased once sleep | | | stabilized. Devyn-Farmer breathing was not observed. LIMB | | | MOVEMENTS:? Total sleep periodic limb movement index was 1.8 and was | | | not increased. EKG:Normal sinus rhythm was noted with mean heart | | | rate of 69, 68, and 75 beats per minute in wake, non-REM, and REM | | | sleep respectively.. INTERPRETATION: - This diagnostic | | | polysomnography showed mild sleep apnea which was predominantly | | | obstructive in nature. Sleep apnea was worsened in supine position, | | | but was not worsened in stage R sleep. Less than 27.7% of total | | | sleep time in supine position, and 30% of total sleep time was spent | | | in stage R sleep. Arthur SpO2 was 84 %, and amount of total sleep time | | | spent below SpO2 of 90% was 6.1 minutes. - Sleep efficiency was | | | decreased, sleep onset latency was increased. Patient though rated | | | her sleep better than usual. She has history of chronic insomnia. - | | | Excessive leg movements was not observed. RECOMMENDATIONS: 1. A trial | | | of auto-PAP at 5-15 cm H2O with a small AmaraView ffm is recommended. | | | 2. Management of insomnia with CBT-I, and optimization of sleep | | | hygiene is recommended. Raquel Figueroa MD Portions of this chart may | | | have been created with Kaiam voice recognition software. Occasional | | | wrong-word or | | | | | | sound-alike | | | substitutions may have occurred due to the inherent limitations of | | | voice recognition software. Please read the chart carefully and | | | recognize, using context, where these substitutions have occurred. | | |time in supine position. Nonsupine AHI was normal at 40.6. | | |? Sleep disordered breathing was not worsened in REM sleep with | | |REM AHI of 10.5. NREM AHI was 11.3.. | | |? Mean SpO2 was 93 %, arthur SpO2 was 84 %, and amount of total | | |sleep time spent below SpO2 of 90% was 6.1 minutes. 4% Oxygen | | |Desaturation Index (MYRIAM) was 12 and was mildly elevated. | | |? Snoring was loud. | | |? ETCO2 was not elevated. | | |? There were no murmurs of central apneas in supine non-REM | | |sleep, and in sleep-wake transition. These ceased once sleep | | |stabilized. Devyn-Farmer breathing was not observed. | | | | | |LIMB MOVEMENTS: | | |? Total sleep periodic limb movement index was 1.8 and was not | | |increased. | | | | | | | | |EKG: | | |Normal sinus rhythm was noted with mean heart rate of 69, 68, and | | |75 beats per minute in wake, non-REM, and REM sleep | | |respectively.. | | | | | |INTERPRETATION: | | | | | |- This diagnostic polysomnography showed mild sleep apnea which | | |was predominantly obstructive in nature. Sleep apnea was | | |worsened in supine position, but was not worsened in stage R | | |sleep. Less than 27.7% of total sleep time in supine position, | | |and 30% of total sleep time was spent in stage R sleep. Arthur | | |SpO2 was 84 %, and amount of total sleep time spent below SpO2 of | | |90% was 6.1 minutes. | | |- Sleep efficiency was decreased, sleep onset latency was | | |increased. Patient though rated her sleep better than usual. She | | |has history of chronic insomnia. | | |- Excessive leg movements was not observed. | | | | | |RECOMMENDATIONS: | | | | | |1. A trial of auto-PAP at 5-15 cm H2O with a small AmaraView ffm | | |is recommended. | | |2. Management of insomnia with CBT-I, and optimization of sleep | | |hygiene is recommended. | | | | | | | | |Raquel Figueroa MD | | | | | |Portions of this chart may have been created with Kaiam voice | | |recognition software. Occasional wrong-word or sound-alike | | |substitutions may have occurred due to the inherent limitations | | |of voice recognition software. Please read the chart carefully | | |and recognize, using context, where these substitutions have | | |occurred. | | | | | | | | + + + + + | Procedure Note | + + | Raquel Figueroa MD - 08/15/2017 12:54 PM [facility] | | [place], [place] [id number] Report on Amparo Bravo | | Kimberly performed on August 14, 2017.PATIENT IDENTIFICATION:Amparo Harris IS | | a 42 y.o..-year-old female. with a history of hypothyroidism and PTSD, presenting with | | snoring, and witnessed apnea for evaluation of obstructive sleep apnea.BMI: 44Technical | | Information: Please see technical data which is attached.Definitions (The AASM Manual | | for the Scoring of Sleep and Associated Events, Version 2.4; 2017): Apnea: There is a | | drop in the peak signal excursion by 90% or greater of pre-event baseline using an | | oronasal thermal sensor (diagnostic study), PAP device flow (titration study), or an | | alternative apnea sensor (diagnostic study); the duration of the 90% or greater drop in | | sensor signal is 10 seconds or longer. Obstructive Apnea: Event associated with | | continued or increased inspiratory effort throughout the entire period of absent | | airflow. Central Apnea: Event associated with absent inspiratory effort throughout the | | entire period of absent airflow. Mixed Apnea: Event associated with absent inspiratory | | effort in the initial portion of the event followed by resumption of inspiratory effort | | during the second portion of the event. Hypopnea: Nasal pressure excursion drop by 30% | | or more from baseline, lasting at lease 10 seconds and 90% of the event's duration meets | | this amplitude criteria. This is associated with a 4% or greater desaturation from | | pre-baseline Respiratory Event Related Arousal: A sequence of breaths lasting 10 seconds | | or longer characterized by increasing respiratory effort or by flattening of the | | inspiratory portion of the nasal pressure (diagnostic study) or PAP device flow | | (titration study) waveform leading to arousal from sleep when the sequence of breaths | | does not meet criteria for an apnea or hypopnea.SLEEP STUDY HISTORY:NONE. REVELANT | | MEDICATIONS: None.SUBJECTIVE:The patient rated sleep quality during sleep study as | | better. Charge Preparation Technician note: patient tried DreamwEar nasal mask and small AmaraView ffm, and | | the ffm was comfortable. SLEEP ARCHITECTURE AND EEG:? Total sleep time was 401 minutes. | | Sleep efficiency was 67.6% and was decreased.? Sleep onset latency was 55 minutes and | | was increased.? REM latency was 115.5 minutes and was increased.? Percent of time in | | stage N3 was 14.7% and was decreased.? Percent of time in stage REM was 30 % and was | | increased.? Arousal Index for this diagnostic study was 13/hour and was normal, with 7.5 | | respiratory arousals/hour and 5.1 spontaneous arousals/hour. RESPIRATORY:? Respiratory | | disturbance index (RDI) was 13.3, consisting of total 54 hypopneas, 2 obstructive | | apneas, 0 mixed apneas, and 18 central apneas and 15 RERAs. AHI was 11.1 and mildly | | elevated..? Sleep disordered breathing was worsened in supine position with supine AHI | | of 28.1. The patient spent 27.7% of total sleep time in supine position. Nonsupine AHI | | was normal at 40.6.? Sleep disordered breathing was not worsened in REM sleep with REM | | AHI of 10.5. NREM AHI was 11.3..? Mean SpO2 was 93 %, arthur SpO2 was 84 %, and amount of | | total sleep time spent below SpO2 of 90% was 6.1 minutes. 4% Oxygen Desaturation Index | | (MYRIAM) was 12 and was mildly elevated.? Snoring was loud.? ETCO2 was not elevated.? There | | were no murmurs of central apneas in supine non-REM sleep, and in sleep-wake | | transition. These ceased once sleep stabilized. Devyn-Farmer breathing was not | | observed. LIMB MOVEMENTS:? Total sleep periodic limb movement index was 1.8 and was not | | increased. EKG:Normal sinus rhythm was noted with mean heart rate of 69, 68, and 75 | | beats per minute in wake, non-REM, and REM sleep respectively.. INTERPRETATION:- This | | diagnostic polysomnography showed mild sleep apnea which was predominantly obstructive | | in nature. Sleep apnea was worsened in supine position, but was not worsened in stage R | | sleep. Less than 27.7% of total sleep time in supine position, and 30% of total sleep | | time was spent in stage R sleep. Arthur SpO2 was 84 %, and amount of total sleep time | | spent below SpO2 of 90% was 6.1 minutes. - Sleep efficiency was decreased, sleep onset | | latency was increased. Patient though rated her sleep better than usual. She has | | history of chronic insomnia. - Excessive leg movements was not | | observed.RECOMMENDATIONS:1. A trial of auto-PAP at 5-15 cm H2O with a small AmaraView | | ffm is recommended. 2. Management of insomnia with CBT-I, and optimization of sleep | | hygiene is recommended.OTTONIEL Rizzoortions of this chart may have been created with | | Kaiam voice recognition software. Occasional wrong-word or | | | | sound-alike | | substitutions may have occurred due to the inherent limitations of voice recognition | | software. Please read the chart carefully and recognize, using context, where these | | substitutions have occurred. | | | |INTERPRETATION: | | | |- This diagnostic polysomnography showed mild sleep apnea which was predominantly obstructi ve in nature. Sleep apnea was worsened in supine position, but was not worsened in stage R sleep. Less than 27.7% of total | |sleep time in supine position, and 30% of total sleep time was spent in stage R sleep. Nadi r SpO2 was 84 %, and amount of total sleep time spent below SpO2 of 90% was 6.1 minutes. | |- Sleep efficiency was decreased, sleep onset latency was increased. Patient though rated her sleep better than usual. She has history of chronic insomnia. | |- Excessive leg movements was not observed. | | | |RECOMMENDATIONS: | | | |1. A trial of auto-PAP at 5-15 cm H2O with a small AmaraView ffm is recommended. | |2. Management of insomnia with CBT-I, and optimization of sleep hygiene is recommended. | | | | | |Raquel Figueroa MD | | | |Portions of this chart may have been created with Kaiam voice recognition software. Occasi onal wrong-word or sound-alike substitutions may have occurred due to the inherent farnsworth itations of voice recognition software. | |Please read the chart carefully and recognize, using context, where these substitutions hav e occurred. | + + documented in this encounter Visit Diagnoses + + | Diagnosis | + + | ABILIO (obstructive sleep apnea) Obstructive sleep apnea (adult) (pediatric) | + + documented in this encounter"
--- OUTSIDE RECORDS SUMMARY | ~2019-08-01 | XMS | Clinical Summary ---
Demographics + + + | Address | [address] | | | [place] [address] | + + + | Home Phone | | + + + | Preferred Language | Unknown | + + + | Marital Status | | + + + | Denominational Affiliation | Unknown | + + + | Race | White | + + + | Ethnic Group | Not or | + + + Author + + + | Author | [facility] | + + + | Organization | [facility] | + + + | Address [...] Team Providers + +------+ + | Care Robotic Machine Tender Production Name | Role | Phone | + +------+ + | Fausto Montesinos DO | PCP | | + +------+ + Source Comments LEIDY is fully live on both EpicCare Ambulatory and EpicCare InPatient.[facility] Allergies + + + + + + [...] | | | + +--------+ +--------+-------+---------+--------+ | [employer]ICA[employer] | [employer]ERY [employer]EE[employer] | xxxxxxxx | | | | Medica [...] | 1975 | [phone] | [place] [address] | | | florina | | | 5 (Home) | | + +--------+ +--------+ + +"
--- OUTSIDE RECORDS SUMMARY | ~2019-08-01 | XMS | Encounter Summary ---
Demographics + + + | Address | [address] [facility] | | | [place] [address] | + + + | Home Phone | | + + + | Preferred Language | Unknown | + + + | Marital Status | | + + + | Shinto Affiliation | Unknown | + + + | Race | Unknown | + + + | Ethnic Group | Unknown | + + + Author + + + | Author | [facility] | | | and [place] | + + + | Organization | [facility] | | | and [place] | + + + | Address | Unknown | + + + | Phone | Unavailable | + + + Support + + + + + | Name | Relationship | Address | Phone | + + + + + | Alexsander Harris | ECON | [address] | | | | | [place] [address] | | + + + + + Care Team Providers + +------+ + | Care Ophthalmic Asst Name | Role | Phone | + [...] | (obstructive | [address] | [place] | | | | | sleep | [address] | [place], | | | | | apnea) | [place] | [place] [address] | | | | | Procedures | [id number] | Phone: | | | | | IN POLYSOM | Phone: | [phone] | | | | | 6/>YRS SLEEP | [phone] | Fax: | | | | | W/CPAP 4/> | Fax: | [phone] | | | | | ADDL SUSI | [phone] | | | | | | ATTND IN | | | | | | | [...] + + | 08/14/ | Hospital | [facility] | Raquel Figueroa MD | ABILIO (obstructive | | 2017 - | Encounter | [facility] | [address] | sleep apnea) | | | | CENTER [address] | [place] | | | 08/15/ | | [place], [place] | [address] | | | 2016 | | [address] | | | | | | [phone] | | | +--------+ + + + [...] 0 | | | | (VITAMIN D-3) [address]64[address] | mouth Daily. | | | | | | units CAPS | | | | | | + + + +---------+--------+ + | Coenzyme Q10 | Take 120 mg by mouth | | 0 | | | | (COQ10) 100 MG CAPS | 2 times daily. | | | | | + + + +---------+--------+ + | Lachine 3 1000 MG | Take 2,000 mg [...] [facility] | | | [place] [address] Polysomnogram | | | Report on Amparo [...] sleep study as | | | better. Commodities Broker note: patient tried DreamwEar nasal mask and [...] | | | have been created with [employer] voice recognition software. Occasional | | | [...] this chart may have been created with [employer] voice | | |recognition software. Occasional wrong-word [...] PM [facility] | | [place], [place] [id number] Report on Amparo Bravo | | Kimberly [...] during sleep study as | | better. Commodities Broker note: patient tried DreamwEar nasal mask and [...] may have been created with | | [employer] voice recognition software. Occasional wrong-word or | [...] this chart may have been created with [employer] voice recognition software. Occasi onal wrong-word or [...]
--- OUTSIDE RECORDS SUMMARY | ~2019-08-01 | XMS | Encounter Summary ---
Demographics + + + | Address | [address] | | | [place] [address] | + + + | Home Phone | | + + + | Preferred Language | Unknown | + + + | Marital Status | | + + + | Rastafarian Affiliation | Unknown | + + + | Race | Unknown | + + + | Ethnic Group | Unknown | + + + Author + + + | Author | [facility] | | | and [place] | + + + | Organization | [facility] | | | and [place] | + + + | Address | Unknown | + + + | Phone | Unavailable | + + + Support + + + + + | Name | Relationship | Address | Phone | + + + + + | Alexsander Harris | ECON | [address] | | | | | [place] [address] | | + + + + + Care Team Providers + +------+ + | Care Cosmetic Sales Advisor Name | Role | Phone | + +------+ + | Haily Beltran NP | PCP | | + +------+ + Reason for Visit + + + | Reason | Comments | + + + | Fever (9 Weeks To 74 | | | Years) | | + + + | Sore Throat | | + + + | Abdominal Pain | | + + + Encounter Details +--------+ + + + + | Date | Type | Department | Care Team | Description | +--------+ + + + + | 01/17/ | Emergency | [facility] | Ashkan Hayes, | Acute viral syndrome | | 2018 | | [facility] | [place] [address] | (Primary Dx) | | | | [place] [address] | [place] | | | | | [place] | [id number] | | | | | [address] | | | | | | [phone] | | | +--------+ + + + [...] + + + | Blood Pressure | 142/96 | 01/17/2018 5:25 PM | | | | | PDT | | + + + + + | Pulse | 68 | 01/17/2018 5:25 PM | | | | | PDT | | + + + + + | Temperature | 36.8 C (98.2 F) | 01/17/2018 5:25 PM | | | | | PDT | | + + + + + | Respiratory Rate | 18 | 01/17/2018 5:25 PM | | | | | PDT | | + + + + + | Oxygen Saturation | 97% | 01/17/2018 5:25 PM | | | | | PDT | | + + + + + | Inhaled Oxygen | - | - | | | Concentration | | | | + + + + + | Weight | 108.9 kg (240 lb) | 01/17/2018 4:02 PM | | | | | PDT | | + + + + + | Height | 165.1 cm (5' 5") | 01/17/2018 4:02 PM | | | | | PDT | | + + + + + | Body Mass Index | 39.94 | 01/17/2018 4:02 PM | | | | | PDT | | + + + + + documented in this encounter Discharge Instructions AttachmentsThe following attachments cannot be sent through Care Everywhere.Viral Syndrome (Adult) ([place])documented in this encounter Medications at Time of Discharge + + + +---------+ + + | Medication | Sig | Dispensed | Refills | Start | End Date | | | | | | Date | | + + + +---------+ + + | albuterol 2.5 mg/3 | Take 2.5 mg by | | 0 | | | | mL nebulizer | nebulization as | | | | | | solution | needed for Wheezing. | | | | | + + + +---------+ + + | APPLE CIDER | Take by mouth 2 | | 0 | | | | VINEGAR PO | times daily. | | | | | + + + +---------+ + + | Ascorbic Acid | Take 2,000 mg by | | 0 | | | | (VITAMIN C) 1000 MG | mouth Daily. | | | | | | tablet | | | | | | + + + +---------+ + + | B Complex Vitamins | Take by mouth | | 0 | | | | (B COMPLEX PO) | Daily. | | | | | + + + +---------+ + + | Biotin 5000 MCG | Take 5,000 mcg by | | 0 | | | | CAPS | mouth Daily. | | | | | + + + +---------+ + + | cetirizine | Take 10 mg by mouth | | 0 | | | | (ZYRTEC) 10 mg | Daily. | | | | | | tablet | | | | | | + + + +---------+ + + | Cholecalciferol | Take 10,000 Units by | | 0 | | | | (VITAMIN D-3) 57088 | mouth Daily. | | | | | | units CAPS | | | | | | + + + +---------+ + + | Coenzyme Q10 | Take 120 mg by mouth | | 0 | | | | (COQ10) 100 MG CAPS | 2 times daily. | | | | | + + + +---------+ + + | Melber 3 1000 MG | Take 2,000 mg by | | 0 | | | | CAPS | mouth 2 times daily. | | | | | + + + +---------+ + + | THYROID PO | Take by mouth | | 0 | | | | | Daily. | | | | | + + + +---------+ + + | Turmeric (CURCUMIN | Take by mouth 3 | | 0 | | | | 95) 500 MG CAPS | times daily. | | | | | + + + +---------+ + + | vitamin E 1000 | Take 1,000 Units by | | 0 | | | | UNITS capsule | mouth Daily. | | | | | + + + +---------+ + + | magnesium, as | Take 500 mg by mouth | | 0 | | | | oxide, 250 MG tablet | Daily. | | | | 9 | + + + +---------+ + + | methylPREDNISolone | Follow package | 21 | 0 | 01/18/20 | | | (MEDROL DOSEPAK) 4 | directions. | tablet | | 18 | 9 | | mg tablet | | | | | | + + + +---------+ + + | prazosin | Take 2 mg by mouth | | 0 | | | | (MINIPRESS) 1 mg | nightly. | | | | 9 | | capsule | | | | | | + + + +---------+ + + documented as of this encounter Plan of Treatment Not on filedocumented as of this encounter Procedures + +--------+ + + + | Procedure Name | Priori | Date/Time | Associated Diagnosis | Comments | | | ty | | | | + +--------+ + + + | XR CHEST 2 VIEWS | STAT | 01/17/2018 | | Results for this | | | | 4:31 PM | | procedure are in the | | | | PDT | | results section. | + +--------+ + + + | PROCALCITONIN, SERUM | STAT | 01/17/2018 | | Results for this | | | | 4:23 PM | | procedure are in the | | | | PDT | | results section. | + +--------+ + + + | CULTURE, BLOOD | STAT | 01/17/2018 | | Results for this | | | | 4:23 PM | | procedure are in the | | | | PDT | | results section. | + +--------+ + + + | PROTIME INR | STAT | 01/17/2018 | | Results for this | | | | 4:23 PM | | procedure are in the | | | | PDT | | results section. | + +--------+ + + + | CBC WITH | STAT | 01/17/2018 | | Results for this | | DIFFERENTIAL | | 4:23 PM | | procedure are in the | | | | PDT | | results section. | + +--------+ + + + | LACTIC ACID | STAT | 01/17/2018 | | Results for this | | | | 4:23 PM | | procedure are in the | | | | PDT | | results section. | + +--------+ + + + | COMPREHENSIVE | STAT | 01/17/2018 | | Results for this | | METABOLIC PANEL | | 4:23 PM | | procedure are in the | | | | PDT | | results section. | + +--------+ + + + | URINALYSIS WITH | STAT | 01/17/2018 | | Results for this | | MICROSCOPIC WITH | | 4:22 PM | | procedure are in the | | CULTURE IF INDICATED | | PDT | | results section. | + +--------+ + + + | INFLUENZA A AND B | STAT | 01/17/2018 | | Results for this | | RNA, NAAT | | 4:22 PM | | procedure are in the | | | | PDT | | results section. | + +--------+ + + + | STREP A DNA PROBE, | Routin | 01/17/2018 | | Results for this | | NAAT | e | 4:22 PM | | procedure are in the | | | | PDT | | results section. | + +--------+ + + + | CULTURE, STREP A, | Routin | 01/17/2018 | | Results for this | | THROAT | e | 4:22 PM | | procedure are in the | | | | PDT | | results section. | + +--------+ + + + documented in this encounter Results XR Chest 2 Vws (01/17/2018 4:31 PM PDT) + + | Specimen | + + | | + + + + + | Narrative | Performed At | + + + | EXAM: XR CHEST 2 VIEWS dated 01/17/2018 4:31 PM HISTORY: fever | [facility] | | Comparison: July 23, 2017 TECHNIQUE: Frontal and lateral | | | views of the chest. FINDINGS: The lungs are symmetrically | | | aerated. They are clear. There are no pleural effusions. There | | | is no pneumothorax. The cardiac and mediastinal contours are not | | | enlarged. The visible osseous structures are unremarkable. | | | IMPRESSION - No radiographic evidence for acute disease in the | | | chest. Dictated and Signed by: Ventura Stewart MD | | | Electronically signed: 01/17/2018 4:50 PM | | + + + + + | Procedure Note | + + | Keo, Rad Results In - 01/17/2018 4:53 PM PDT EXAM: XR CHEST 2 VIEWS dated 01/17/2018 | | 4:31 PMHISTORY: feverComparison: July 23, 2017TECHNIQUE: Frontal and lateral views | | of the chest.FINDINGS:The lungs are symmetrically aerated. They are clear. There are | | no pleuraleffusions. There is no pneumothorax. The cardiac and mediastinal contours | | arenot enlarged. The visible osseous structures are unremarkable. IMPRESSION -No | | radiographic evidence for acute disease in the chest. Dictated and Signed by: Ventura Hoover | | MD Terry Electronically signed: 01/17/2018 4:50 PM | | | |FINDINGS: | |The lungs are symmetrically aerated. They are clear. There are no pleural | |effusions. There is no pneumothorax. The cardiac and mediastinal contours are | |not enlarged. The visible osseous structures are unremarkable. | | | |IMPRESSION - | | | |No radiographic evidence for acute disease in the chest. | | | |Dictated and Signed by: Ventura Stewart MD | | Electronically signed: 01/17/2018 4:50 PM | + + + +---------+ + + | Performing | Address | City/State/Zipcode | Phone Number | | Organization | | | | + +---------+ + + | [facility] | | | | + +---------+ + + Culture, Blood (01/17/2018 4:23 PM PDT) + + + + + + | Component | Value | Ref Range | Performed | Pathologist | | | | | At | Signature | + + + + + + | Culture | No growth after 5 days | | [facility] | | | | incubation. | | [facility] | | | | | | MEDICAL | | | | | | CENTER - | | | | | | LABORATORY | | + + + + + + + + | Specimen | + + | Blood - Peripheral | | blood specimen | | (specimen) | + + + + + + + | Performing | Address | City/State/Zipcode | Phone Number | | Organization | | | | + + + + + | [facility] | [address] | [place] | [phone] | | [facility] | | [address] | | | - LABORATORY | | | | + + + + + Procalcitonin (01/17/2018 4:23 PM PDT) + + + + + + | Component | Value | Ref Range | Performed | Pathologist | | | | | At | Signature | + + + + + + | Procalciton | <0.05 | <=0.50 ng/mL | [facility] | | | in | | | [facility] | | | | | | MEDICAL | | | | | | CENTER - | | | | | | LABORATORY | | + + + + + + | Comment | Comment: < 0.50 | | [facility] | | | | ng/mL:Procalcitonin | | [facility] | | | | levels below 0.50 ng/mL | | MEDICAL | | | | on the first day of | | CENTER - | | | | admission represents a | | LABORATORY | | | | low risk for progression | | | | | | to severe sepsis and/or | | | | | | septic shock, however | | | | | | these do not exclude an | | | | | | infection, because | | | | | | localized infections | | | | | | (without systemic signs) | | | | | | may also be associated | | | | | | with such low levels. | | | | | | > 2.00 | | | | | | ng/mL:Procalcitonin | | | | | | levels above 2.00 ng/mL | | | | | | on the first day of | | | | | | admission represents a | | | | | | high risk for | | | | | | progression to severe | | | | | | sepsis and/or septic | | | | | | shock. If the | | | | | | procalcitonin | | | | | | measurement is performed | | | | | | shortly after the | | | | | | systemic infection | | | | | | process has started | | | | | | (usually less than 6 | | | | | | hours), these values may | | | | | | still be low. As | | | | | | various non-infectious | | | | | | conditions are known to | | | | | | induce procalcitonin as | | | | | | well, procalcitonin | | | | | | levels between 0.50 | | | | | | ng/mL and 2.00 ng/mL | | | | | | should be reviewed | | | | | | carefully to take into | | | | | | account the specific | | | | | | clinical background and | | | | | | condition(s) of the | | | | | | individual patient. | | | | + + + + + + + + | Specimen | + + | Blood | + + + + + + + | Performing | Address | City/State/Zipcode | Phone Number | | Organization | | | | + + + + + | [facility] | [address] | [place] | [phone] | | [facility] | | [address] | | | - LABORATORY | | | | + + + + + Lactic Acid (01/17/2018 4:23 PM PDT) + +-------+ + + + | Component | Value | Ref Range | Performed | Pathologist | | | | | At | Signature | + +-------+ + + + | Lactate | 1.6 | 0.5 - 2.2 | [facility] | | | | | mmol/L | [facility] | | | | | | MEDICAL | | | | | | CENTER - | | | | | | LABORATORY | | + +-------+ + + + + + | Specimen | + + | Blood | + + + + + + + | Performing | Address | City/State/Zipcode | Phone Number | | Organization | | | | + + + + + | [facility] | [address] | [place] | [phone] | | [facility] | | [address] | | | - LABORATORY | | | | + + + + + Protime INR (01/17/2018 4:23 PM PDT) + + + + + + | Component | Value | Ref Range | Performed | Pathologist | | | | | At | Signature | + + + + + + | Prothrombin | 12.7 | 11.3 - 13.9 | [facility] | | | Time | | seconds | [facility] | | | | | | MEDICAL | | | | | | CENTER - | | | | | | LABORATORY | | + + + + + + | INR | 0.96Comment: Usual Oral | 0.90 - 1.10 | [facility] | | | | Anticoagulation Range: | | [facility] | | | | 2.0 - 3.0High | | MEDICAL | | | | Level Oral | | CENTER - | | | | Anticoagulation Range: | | LABORATORY | | | | 2.5 - 3.5 | | | | + + + + + + + + | Specimen | + + | Blood | + + + + + + + | Performing | Address | City/State/Zipcode | Phone Number | | Organization | | | | + + + + + | [facility] | [address] | [place] | [phone] | | [facility] | | [address] | | | - LABORATORY | | | | + + + + + Comprehensive Metabolic Panel (01/17/2018 4:23 PM PDT) + + + + + + | Component | Value | Ref Range | Performed | Pathologist | | | | | At | Signature | + + + + + + | Na | 138 | 136 - 149 | [facility] | | | | | mmol/L | [facility] | | | | | | MEDICAL | | | | | | CENTER - | | | | | | LABORATORY | | + + + + + + | K | 3.9 | 3.5 - 5.1 | [facility] | | | | | mmol/L | [facility] | | | | | | MEDICAL | | | | | | CENTER - | | | | | | LABORATORY | | + + + + + + | Cl | 104 | 98 - 109 mmol/L | [facility] | | | | | | [facility] | | | | | | MEDICAL | | | | | | CENTER - | | | | | | LABORATORY | | + + + + + + | CO2 | 25 | 24 - 31 mmol/L | [facility] | | | | | | [facility] | | | | | | MEDICAL | | | | | | CENTER - | | | | | | LABORATORY | | + + + + + + | Anion Gap | 9 | 3 - 16 mmol/L | [facility] | | | | | | [facility] | | | | | | MEDICAL | | | | | | CENTER - | | | | | | LABORATORY | | + + + + + + | Glucose | 105 | 70 - 109 mg/dL | [facility] | | | | | | [facility] | | | | | | MEDICAL | | | | | | CENTER - | | | | | | LABORATORY | | + + + + + + | BUN | 14 | 7 - 18 mg/dL | [facility] | | | | | | [facility] | | | | | | MEDICAL | | | | | | CENTER - | | | | | | LABORATORY | | + + + + + + | Creatinine | 0.77 | 0.60 - 1.30 | [facility] | | | | | mg/dL | [facility] | | | | | | MEDICAL | | | | | | CENTER - | | | | | | LABORATORY | | + + + + + + | eGFR if not | >60Comment: GLOMERULAR | >=60 | [facility] | | | | FILTRATION | mL/min/1.73m2 | [facility] | | | SURINAMESE | RATE,ESTIMATED | | MEDICAL | | | | mL/min/1.23p2Kxdc than | | CENTER - | | | | 60 Chronic kidney | | LABORATORY | | | | disease,if found over a | | | | | | 3-month period.Less than | | | | | | 15 Kidney failureFor | | | | | | | | | | | | Americans,multiply the | | | | | | calculated GFR by 1.21. | | | | | | | | | | + + + + + + | Calcium | 9.4 | 8.3 - 10.5 | [facility] | | | | | mg/dL | [facility] | | | | | | MEDICAL | | | | | | CENTER - | | | | | | LABORATORY | | + + + + + + | Albumin | 4.3 | 3.2 - 5.0 g/dL | [facility] | | | | | | [facility] | | | | | | MEDICAL | | | | | | CENTER - | | | | | | LABORATORY | | + + + + + + | Bilirubin | 0.5Comment: This is an | 0.1 - 1.5 mg/dL | [facility] | | | Total | appended report. These | | [facility] | | | | results have been | | MEDICAL | | | | appended to a previously | | CENTER - | | | | preliminary verified | | LABORATORY | | | | report. | | | | + + + + + + | Total | 7.1 | 6.0 - 7.8 g/dL | [facility] | | | Protein | | | [facility] | | | | | | MEDICAL | | | | | | CENTER - | | | | | | LABORATORY | | + + + + + + | AST | 25Comment: This is an | 10 - 42 U/L | [facility] | | | | appended report. These | | [facility] | | | | results have been | | MEDICAL | | | | appended to a previously | | CENTER - | | | | preliminary verified | | LABORATORY | | | | report. | | | | + + + + + + | ALT | 25Comment: This is an | 6 - 45 U/L | [facility] | | | | appended report. These | | [facility] | | | | results have been | | MEDICAL | | | | appended to a previously | | CENTER - | | | | preliminary verified | | LABORATORY | | | | report. | | | | + + + + + + | Alkaline | 67Comment: This is an | 40 - 110 U/L | [facility] | | | Phosphatase | appended report. These | | [facility] | | | | results have been | | MEDICAL | | | | appended to a previously | | CENTER - | | | | preliminary verified | | LABORATORY | | | | report. | | | | + + + + + + | Globulin | 2.8 | 2.1 - 3.8 g/dL | [facility] | | | | | | [facility] | | | | | | MEDICAL | | | | | | CENTER - | | | | | | LABORATORY | | + + + + + + | Albumin/Millie | 1.5 | 0.8 - 2.0 | [facility] | | | bulin Ratio | | | [facility] | | | | | | MEDICAL | | | | | | CENTER - | | | | | | LABORATORY | | + + + + + + | BUN/Creatin | 18.2 | | [facility] | | | ine Ratio | | | [facility] | | | | | | MEDICAL | | | | | | CENTER - | | | | | | LABORATORY | | + + + + + + + + | Specimen | + + | Blood | + + + + + + + | Performing | Address | City/State/Zipcode | Phone Number | | Organization | | | | + + + + + | [facility] | [address] | [place] | [phone] | | [facility] | | [address] | | | - LABORATORY | | | | + + + + + CBC with Differential (01/17/2018 4:23 PM PDT) + + + + + + | Component | Value | Ref Range | Performed | Pathologist | | | | | At | Signature | + + + + + + | WBC | 8.4 | 4.0 - 11.0 K/uL | [facility] | | | | | | [facility] | | | | | | MEDICAL | | | | | | CENTER - | | | | | | LABORATORY | | + + + + + + | RBC | 4.55 | 3.70 - 5.20 | [facility] | | | | | M/uL | [facility] | | | | | | MEDICAL | | | | | | CENTER - | | | | | | LABORATORY | | + + + + + + | Hemoglobin | 15.0 | 11.5 - 16.0 | [facility] | | | | | g/dL | [facility] | | | | | | MEDICAL | | | | | | CENTER - | | | | | | LABORATORY | | + + + + + + | Hematocrit | 42.3 | 34.0 - 47.0 % | [facility] | | | | | | [facility] | | | | | | MEDICAL | | | | | | CENTER - | | | | | | LABORATORY | | + + + + + + | MCV | 92.8 | 83.0 - 101.0 fL | [facility] | | | | | | [facility] | | | | | | MEDICAL | | | | | | CENTER - | | | | | | LABORATORY | | + + + + + + | MCH | 32.9 | 28.0 - 35.0 pg | [facility] | | | | | | [facility] | | | | | | MEDICAL | | | | | | CENTER - | | | | | | LABORATORY | | + + + + + + | MCHC | 35.4 | 32.0 - 36.0 | [facility] | | | | | g/dL | [facility] | | | | | | MEDICAL | | | | | | CENTER - | | | | | | LABORATORY | | + + + + + + | RDW-CV | 12.6 | <15.0 % | [facility] | | | | | | [facility] | | | | | | MEDICAL | | | | | | CENTER - | | | | | | LABORATORY | | + + + + + + | Platelet | 288 | 140 - 440 K/uL | [facility] | | | Count | | | [facility] | | | | | | MEDICAL | | | | | | CENTER - | | | | | | LABORATORY | | + + + + + + | MPV | 8.3 | fL | [facility] | | | | | | [facility] | | | | | | MEDICAL | | | | | | CENTER - | | | | | | LABORATORY | | + + + + + + | % | 47.0 | 45.0 - 82.0 % | [facility] | | | Neutrophils | | | [facility] | | | | | | MEDICAL | | | | | | CENTER - | | | | | | LABORATORY | | + + + + + + | % | 42.5 | 20.0 - 45.0 % | [facility] | | | Lymphocytes | | | [facility] | | | | | | MEDICAL | | | | | | CENTER - | | | | | | LABORATORY | | + + + + + + | % Monocytes | 6.4 | 4.0 - 12.0 % | [facility] | | | | | | [facility] | | | | | | MEDICAL | | | | | | CENTER - | | | | | | LABORATORY | | + + + + + + | % | 3.0 | 0.0 - 5.0 % | [facility] | | | Eosinophils | | | [facility] | | | | | | MEDICAL | | | | | | CENTER - | | | | | | LABORATORY | | + + + + + + | % Basophils | 1.1 (H) | 0.0 - 1.0 % | [facility] | | | | | | [facility] | | | | | | MEDICAL | | | | | | CENTER - | | | | | | LABORATORY | | + + + + + + | Absolute | 4.00 | 1.80 - 8.50 | [facility] | | | Neutrophils | | K/uL | [facility] | | | | | | MEDICAL | | | | | | CENTER - | | | | | | LABORATORY | | + + + + + + | Absolute | 3.60 (H) | 0.60 - 3.20 | [facility] | | | Lymphocytes | | K/uL | [facility] | | | | | | MEDICAL | | | | | | CENTER - | | | | | | LABORATORY | | + + + + + + | Absolute | 0.50 | 0.00 - 1.00 | [facility] | | | Monocytes | | K/uL | [facility] | | | | | | MEDICAL | | | | | | CENTER - | | | | | | LABORATORY | | + + + + + + | Absolute | 0.20 | 0.00 - 0.40 | [facility] | | | Eosinophils | | K/uL | [facility] | | | | | | MEDICAL | | | | | | CENTER - | | | | | | LABORATORY | | + + + + + + | Absolute | 0.10 | 0.00 - 0.10 | [facility] | | | Basophils | | K/uL | [facility] | | | | | | MEDICAL | | | | | | CENTER - | | | | | | LABORATORY | | + + + + + + + + | Specimen | + + | Blood | + + + + + + + | Performing | Address | City/State/Zipcode | Phone Number | | Organization | | | | + + + + + | [facility] | [address] | [place] | [phone] | | [facility] | | [address] | | | - LABORATORY | | | | + + + + + Culture, Strep A, Throat (01/17/2018 4:22 PM PDT) + + + + + + | Component | Value | Ref Range | Performed | Pathologist | | | | | At | Signature | + + + + + + | Culture | No Group A Streptococcus | | [facility] | | | | isolated | | [facility] | | | | | | MEDICAL | | | | | | CENTER - | | | | | | LABORATORY | | + + + + + + + + | Specimen | + + | Tissue - Specimen | | from throat | | (specimen) | + + + + + + + | Performing | Address | City/State/Zipcode | Phone Number | | Organization | | | | + + + + + | [facility] | [address] | [place] | [phone] | | [facility] | | [address] | | | - LABORATORY | | | | + + + + + Influenza A and B RNA, NAAT (01/17/2018 4:22 PM PDT) + + + + + + | Component | Value | Ref Range | Performed | Pathologist | | | | | At | Signature | + + + + + + | Influenza A | Negative | Negative | [facility] | | | PCR | | | [facility] | | | | | | MEDICAL | | | | | | CENTER - | | | | | | LABORATORY | | + + + + + + | Influenza B | Negative | Negative | [facility] | | | PCR | | | [facility] | | | | | | MEDICAL | | | | | | CENTER - | | | | | | LABORATORY | | + + + + + + + + | Specimen | + + | Tissue - Entire | | nasopharynx (body | | structure) | + + + + + + + | Performing | Address | City/State/Zipcode | Phone Number | | Organization | | | | + + + + + | [facility] | [address] | [place] | [phone] | | [facility] | | [address] | | | - LABORATORY | | | | + + + + + Strep A DNA probe, NAAT (01/17/2018 4:22 PM PDT) + + + + + + | Component | Value | Ref Range | Performed | Pathologist | | | | | At | Signature | + + + + + + | Group A | Negative | Negative | [facility] | | | Strep, DNA | | | [facility] | | | | | | MEDICAL | | | | | | CENTER - | | | | | | LABORATORY | | + + + + + + + + | Specimen | + + | Tissue - Specimen | | from throat | | (specimen) | + + + + + + + | Performing | Address | City/State/Zipcode | Phone Number | | Organization | | | | + + + + + | [facility] | [address] | [place] | [phone] | | [facility] | | [id number] | | | - LABORATORY | | | | + + + + + Urinalysis with Microscopic with Culture if Indicated (01/17/2018 4:22 PM PDT) + + + + + + | Component | Value | Ref Range | Performed | Pathologist | | | | | At | Signature | + + + + + + | Color | Yellow | Light Yellow, | [facility] | | | | | Yellow, Straw | [facility] | | | | | | [facility] | | | | | | C[facility] - | | | | | | LABORATORY | | + + + + + + | Clarity | Hazy (A) | Clear | [facility] | | | | | | [facility] | | | | | | [facility] | | | | | | [facility] - | | | | | | LABORATORY | | + + + + + + | pH, Urine | 6.0 | 5.0 - 8.0 | [facility] | | | | | | [facility] | | | | | | [facility] | | | | | | [facility] - | | | | | | LABORATORY | | + + + + + + | Specific | 1.009 | 1.001 - 1.030 | [facility] | | | [place] | | | [facility] | | | | | | MEDICAL | | | | | | CENTER - | | | | | | LABORATORY | | + + + + + + | Protein, | Negative | Negative | [facility] | | | Urine | | | [facility] | | | | | | [facility]ICAL | | | | | | CENTER - | | | | | | LABORATORY | | + + + + + + | Blood, | Negative | Negative | [facility] | | | Urine | | | [facility] | | | | | | [facility] | | | | | | CENTER - | | | | | | LABORATORY | | + + + + + + | Glucose, | Negative | Negative | [facility] | | | Urine | | | [facility] | | | | | | [facility] | | | | | | CENTER - | | | | | | LABORATORY | | + + + + + + | Ketones, | Negative | Negative | [facility] | | | Urine | | | [facility] | | | | | | [facility] | | | | | | CENTER - | | | | | | LABORATORY | | + + + + + + | Bilirubin, | Negative | Negative | [facility] | | | Urine | | | [facility] | | | | | | [facility] | | | | | | CENTER - | | | | | | LABORATORY | | + + + + + + | Nitrite, | Negative | Negative | [facility] | | | Urine | | | [facility] | | | | | | MEDICAL | | | | | | CENTER - | | | | | | LABORATORY | | + + + + + + | Leukocyte | Negative | Negative | [facility] | | | Esterase, | | | [facility] | | | Urine | | | MEDICAL | | | | | | CENTER - | | | | | | LABORATORY | | + + + + + + | Urobilinoge | Negative | 0.2 mg/dL, 1.0 | [facility] | | | n, Urine | | mg/dL, Negative | [facility] | | | | | | MEDICAL | | | | | | CENTER - | | | | | | LABORATORY | | + + + + + + | WBC UA | 0-2 | 0 - 2 /HPF | [facility] | | | | | | [facility] | | | | | | MEDICAL | | | | | | CENTER - | | | | | | LABORATORY | | + + + + + + | RBC UA | 0-2 | 0 - 2 /HPF | [facility] | | | | | | [facility] | | | | | | MEDICAL | | | | | | CENTER - | | | | | | LABORATORY | | + + + + + + | SQUAMOUS | 2-5 (A) | 0 - 2 /LPF | [facility] | | | EPITHELIAL | | | [facility] | | | UA | | | MEDICAL | | | | | | CENTER - | | | | | | LABORATORY | | + + + + + + | BACTERIA UA | 1+ (A) | Negative /HPF | [facility] | | | | | | [facility] | | | | | | MEDICAL | | | | | | CENTER - | | | | | | LABORATORY | | + + + + + + | MUCUS UA | Present (A) | Negative /LPF | [facility] | | | | | | [facility] | | | | | | MEDICAL | | | | | | CENTER - | | | | | | LABORATORY | | + + + + + + | BUDDING | Few (A) | Negative | [facility] | | | YEAST UA | | | [facility] | | | | | | MEDICAL | | | | | | CENTER - | | | | | | LABORATORY | | + + + + + + + + | Specimen | + + | Urine | + + + + + + + | Performing | Address | City/State/Zipcode | Phone Number | | Organization | | | | + + + + + | [facility] | [address] | [place] | [phone] | | [facility] | | [address] | | | - LABORATORY | | | | + + + + + documented in this encounter Visit Diagnoses + + | Diagnosis | + + | Acute viral syndrome - Primary | + + documented in this encounter
--- OUTSIDE RECORDS SUMMARY | ~2019-08-01 | XMS | Encounter Summary ---
Demographics + + + | Address | [address] | | | [place] [address] | + + + | Home Phone | | + + + | Preferred Language | Unknown | + + + | Marital Status | | + + + | Caodaism Affiliation | Unknown | + + + | Race | Unknown | + + + | Ethnic Group | Unknown | + + + Author + + + | Author | [facility] | | | and [place] | + + + | Organization | [facility] | | | and [...] | | | | | [place] [address] | | + + + + + Care Team Providers + +------+ + | Care Employment Evaluator/Case Manager Name | Role | Phone | + [...] + + | 01/17/ | Emergency | [facility] | Ashkan Hayes, | Acute viral syndrome | | 2018 | | [facility] | [place] [address] | (Primary Dx) | | | | [place] [address] | [place] | | | | | [place] | [address] | | | | | [address] | | | | | | [phone] | | | +--------+ + + + [...] be sent through Care Everywhere.Viral Syndrome (Adult) ([place]orese)documented in this encounter Medications at Time of [...] 0 | | | | (VITAMIN D-3) 82388 | mouth Daily. | | | | | | units CAPS | | | | | | + + + +---------+ + + | Coenzyme Q10 | Take 120 mg by mouth | | 0 | | | | (COQ10) 100 MG CAPS | 2 times daily. | | | | | + + + +---------+ + + | [place] 3 1000 MG | Take 2,000 mg [...] [address] | [place] | [phone] | | [facility] | | [address] | | | - LABORATORY | | [...] + | [facility] | [address] | [place] | [phone] | | [facility] | | [address] | | | - LABORATORY | | [...] [address] | [place] | [phone] | | [facility] | | [address] | | | - LABORATORY | | [...] + | [facility] | [address] | [place] | [phone] | | [facility] | | [address] | | | - LABORATORY | | [...] mL/min/1.73m2 | [facility] | | | [place] | RATE,ESTIMATED | | MEDICAL | | | | mL/min/1.02q0Xkmh than | | CENTER - | | [...] | | | | | mg/dL | [facility] | | | | | | MEDICAL | | | | | | CENTER - | | | | | | LABORATORY | | + + + + + + | Albumin | 4.3 | 3.2 - 5.0 g/dL | [facility] | | | | | | [facility] | | | | | | MEDICAL [...] | ine Ratio | | | [facility] | | | | | | [...] [address] | [place] | [phone] | | [facility] | | [address] | | | - LABORATORY | | [...] + | [facility] | [address] | [place] | [phone] | | [facility] | | [address] | | | - LABORATORY | | [...] + | [facility] | [address] | [place] | [phone] | | [facility] | | [address] | | | - LABORATORY | | [...] + | [facility] | [address] | [place] | [phone] | | [facility] | | [address] | | | - LABORATORY | | [...] ST. | [address] | [place] | [phone] | | [facility] | | [address] | | | - LABORATORY | | [...] - 1.030 | [facility] | | | [place] | | | [facility] | | [...] [address] | [place] | [phone] | | [facility] | | [address] | | | - LABORATORY | | | | + + + + + documented in this encounter Visit Diagnoses + + | Diagnosis | + + | Acute viral syndrome - Primary | + + documented in this encounter
--- OUTSIDE RECORDS SUMMARY | ~2019-08-01 | XMS | Encounter Summary ---
Demographics + + + | Address | [address] | | | [place] [address] | + + + | Home Phone [...] + + + | Author | [facility] | | | and [place] | + + + | Organization | [facility] | | | and [place] | + + + | Address | Unknown | + + + | Phone | Unavailable | + + + Support + + + + + | Name | Relationship | Address | Phone | + + + + + | Alexsander Harris | ECON | [address] | | | | | [place] [address] | | + + + + + Care Team Providers + +------+ + | Care Kiln Feeder Name | Role | Phone | + +------+ + PCP | Unavailable | + +------+ + Encounter Details +--------+ + + + + | Date | Type | Department | Care Team | Description | +--------+ + + + + | 01/14/ | [facility] | [facility] | Madhu Agudelo, | | | 2007 | Encounter | MED CTR XRAY [address] | MD [address] | | | | | [place] | [address] | | | | | [place] [address] | [address] | | | | | [phone] | [phone] | | | | | | | [...]
--- OUTSIDE RECORDS SUMMARY | ~2019-08-01 | XMS | Encounter Summary ---
Demographics + + + | Address | [address] | | | [place] [address] | + + + | Home Phone | | + + + | Preferred Language | Unknown | + + + | Marital Status | | + + + | Synagogue Affiliation | Unknown | + + + | Race | Unknown | + + + | Ethnic Group | Unknown | + + + Author + + + | Author | [facility] | | | and [place] | + + + | Organization | [facility] | | | and [place] | + + + | Address | Unknown | + + + | Phone | Unavailable | + + + Support + + + + + | Name | Relationship | Address | Phone | + + + + + | Alexsander Harris | ECON | [address] | | | | | [place] [address] | | + + + + + Care Team Providers + +------+ + | Care Feed Preparation Operator Name | Role | Phone | + +------+ + | Haily Beltran NP | PCP | | + +------+ + Reason for Visit + + + | Reason | Comments | + + + | Chest Pain | | + + + Encounter Details +--------+ + + + + | Date | Type | Department | Care Team | Description | +--------+ + + + + | 07/23/ | Emergency | [facility] | Marquis Wilkins, | Hyperventilation | | 2017 | | MED CTR EMER[facility]Y | [place] [address] | syndrome (Primary | | | | CENTER [address] | [place] | Dx); Fainting spell | | | | [place] | [address] | | | | | [address] | | | | | | [phone] | | | +--------+ + + + [...] + + + | Blood Pressure | 124/80 | 07/23/2017 2:01 AM | | | | | PST | | + + + + + | Pulse | 78 | 07/23/2017 2:01 AM | | | | | PST | | + + + + + | Temperature | 37.5 C (99.5 F) | 07/23/2017 12:35 AM | | | | | PST | | + + + + + | Respiratory Rate | 20 | 07/23/2017 12:35 AM | | | | | PST | | + + + + + | Oxygen Saturation | 94% | 07/23/2017 2:01 AM | | | | | PST | | + + + + + | Inhaled Oxygen | - | - | | | Concentration | | | | + + + + + | Weight | 116 kg (255 lb 11.7 | 07/23/2017 12:35 AM | | | | oz) | PST | | + + + + + | Height | - | - | | + + + + + | Body Mass Index | 42.56 | 11/05/2016 2:36 PM | | | | | PDT | | + + + + + documented in this encounter Discharge Instructions Instructions Marquis Wilkins MD - 07/23/2017Return if worsening or new concerning symptoms AttachmentsThe following attachments cannot be sent through Care Everywhere.Hyperventilatio n Syndrome, Understanding (Maori)documented in this encounter Medications at Time of [...] 0 | | | | (VITAMIN D-3) [address] | mouth Daily. | | | | | | units CAPS | | | | | | + + + +---------+ + + | Coenzyme Q10 | Take 120 mg by mouth | | 0 | | | | (COQ10) 100 MG CAPS | 2 times daily. | | | | | + + + +---------+ + + | [place] 3 1000 MG | Take 2,000 mg [...] + + + +---------+ + + | beclomethasone | Inhale 1 puff into | 1 | 0 | 11/06/19 | | | (QVAR) 40 mcg/puff | the lungs 2 times | Inhaler | | 17 | 7 | | inhaler | daily. | | | | | + + + +---------+ + + | magnesium, as | Take 500 mg by mouth | | 0 | | | | oxide, 250 MG tablet | Daily. | | | | 9 | + + + +---------+ + + | prazosin | Take 1 mg by mouth | | 0 | | | | (MINIPRESS) 1 mg | nightly. | | | | 7 | | capsule | | | | | | + + + +---------+ + + | predniSONE | 5 tabs by mouth | 25 | 0 | 11/06/19 | | | (DELTASONE) 10 mg | daily for 5 days | tablet | | 17 | 7 | | tablet | | | | | | + + + +---------+ + + | Turmeric, Curcuma | 2,000 mg by Does not | | 0 | | | | Kezia (CURCUMIN) | apply route. | | | | 7 | | POWD | | | | | | + + + +---------+ + + | Zinc Sulfate (ZINC | Take 10 mg by mouth. | | 0 | | | | 15 PO) | | | | | 7 | + + + +---------+ + + documented as of this encounter Plan of Treatment Not on filedocumented as of this encounter Procedures + +--------+ + + + | Procedure Name | Priori | Date/Time | Associated Diagnosis | Comments | | | ty | | | | + +--------+ + + + | TROPONIN I | STAT | 07/23/2017 | | Results for this | | | | 12:44 AM | | procedure are in the | | | | PST | | results section. | + +--------+ + + + | D-DIMER | STAT | 07/23/2017 | | Results for this | | | | 12:44 AM | | procedure are in the | | | | PST | | results section. | + +--------+ + + + | CBC WITH | STAT | 07/23/2017 | | Results for this | | DIFFERENTIAL | | 12:44 AM | | procedure are in the | | | | PST | | results section. | + +--------+ + + + | COMPREHENSIVE | STAT | 07/23/2017 | | Results for this | | METABOLIC PANEL | | 12:44 AM | | procedure are in the | | | | PST | | results section. | + +--------+ + + + | XR CHEST AP PORTABLE | STAT | 07/23/2017 | | Results for this | | | | 12:43 AM | | procedure are in the | | | | PST | | results section. | + +--------+ + + + | OXYGEN THERAPY | STAT | 07/23/2017 | | | | | | 12:36 AM | | | | | | PST | | | + +--------+ + + + | ECG 12 LEAD | STAT | 07/23/2017 | | Results for this | | | | 12:36 AM | | procedure are in the | | | | PST | | results section. | + +--------+ + + + documented in this encounter Results D-Dimer (07/23/2017 12:44 AM PST) + + + + + + | Component | Value | Ref Range | Performed | Pathologist | | | | | At | Signature | + + + + + + | D-Dimer | <0.27Comment: This | <=0.50 ug/ml | [facility] | | | Quantitativ | quantitative D-Dimer | | [facility] | | | e | assay has been evaluated | | [...] | | | | present in patients with | | | | | | liver disease, | | | | | | , eclampsia, | | | | | | heart disease and some | | | | | | cancers among other | | | | | | conditions. The presence | | | | | | of rheumatoid factor at | | | | | | a level >50 IU/mL may | | | | | | falsely elevate the | | | | | | determined D-dimer | | | | | | levels. | | | | + + + + + + + + | Specimen | + + | Blood | + + + + + + + | Performing | Address | City/State/Zipcode | Phone Number | | Organization | | | | + + + + + | [facility] | [address] | [place] | [phone] | | [facility] | | [address] | | | - LABORATORY | | | | + + + + + Troponin I (07/23/2017 12:44 AM PST) + + + + + + | Component | Value | Ref Range | Performed | Pathologist | | | | | At | Signature | + + + + + + | Troponin I | <0.01Comment: Reference | <0.06 ng/mL | [facility] | | | | Ranges:0.00-0.06 = | | [facility] | | | | NORMAL>0.06 = | | MEDICAL | | | | SUSPICIOUS FOR | | CENTER - | | | | MYOCARDIAL DAMAGE NOTE: | | LABORATORY | | | | Values greater than 0.50 | | | | | | ng/mL have been shown | | | | | | to be strongly | | | | | | associated with acute | | | | | | myocardial infarction. | | | | | | [employer] | | | | | [...] | | | | | acute coronary syndrome, | | | | | | but can also reflect | | | | | | myocardial necrosis or | | | | | | injury that is not due | | | | | | to coronary artery | | | | | [...] [address] | [place] | [phone] | | [facility] | | [address] | | | - LABORATORY | | | | + + + + + Comprehensive Metabolic Panel (07/23/2017 12:44 AM PST) + + + + + + | [...] + + + + | K | 3.4 (L) | 3.5 - 5.1 | [facility] | | | | | mmol/L | [facility] | | | | | | MEDICAL | | | | | | CENTER - | | | | | | LABORATORY | | + + + + + + | Cl | 105 | 98 - 109 mmol/L | [facility] | | | | | | [facility] | | | | | | MEDICAL | | | | | | CENTER - | | | | | | LABORATORY | | + + + + + + | CO2 | 23 (L) | 24 - 31 mmol/L | [facility] | | | | | | [facility] | | | | | | MEDICAL | | | | | | CENTER - | | | | | | LABORATORY | | + + + + + + | Anion Gap | 10 | 3 - 16 mmol/L | [facility] | | | | | | [facility] | | | | | | MEDICAL | | | | | | CENTER - | | | | | | LABORATORY | | + + + + + + | Glucose | 176 (H) | 70 - 109 mg/dL | [facility] | | | | | | [facility] | | | | | | MEDICAL | | | | | | CENTER - | | | | | | LABORATORY | | + + + + + + | BUN | 13 | 7 - 18 mg/dL | [facility] | | | | | | [facility] | | | | | | MEDICAL | | | | | | CENTER - | | | | | | LABORATORY | | + + + + + + | Creatinine | 0.87 | 0.60 - 1.30 | [facility] | [...] | | | FILTRATION | mL/min/1.73m2 | [facility] | | | [facility] | RATE,ESTIMATED | | MEDICAL | | | | mL/min/1.25z0Lhub than | | CENTER - | | [...] + + + + | Calcium | 8.7 | 8.3 - 10.5 | [facility] | | | | | mg/dL | [facility] | | | | | | MEDICAL | | | | | | CENTER - | | | | | | LABORATORY | | + + + + + + | Albumin | 3.9 | 3.2 - 5.0 g/dL | [facility] | | | | | | [facility] | | | | | | MEDICAL | | | | | | CENTER - | | | | | | LABORATORY | | + + + + + + | Bilirubin | 0.6Comment: This is an | 0.1 - 1.5 mg/dL | [facility] | | | Total | appended report. These | | [facility] | | | | results have been | | MEDICAL | | | | appended to a previously | | CENTER - | | | | preliminary verified | | LABORATORY | | | | report. | | | | + + + + + + | Total | 6.5 | 6.0 - 7.8 g/dL | [facility] | | | Protein | | | [facility] | | | | | | MEDICAL | | | | | | CENTER - | | | | | | LABORATORY | | + + + + + + | AST | 28Comment: This is an | 10 - 42 [...] + + + + | ALT | 24Comment: This is an | 6 - 45 [...] + + + + | Alkaline | 68Comment: This is an | 40 - 110 [...] + + + + | Globulin | 2.6 | 2.1 - 3.8 g/dL | [facility] | | | | | | [facility] | | | | | | MEDICAL | | | | | | CENTER - | | | | | | LABORATORY | | + + + + + + | Albumin/Millie | 1.5 | 0.8 - 2.0 | [facility] | | | bulin Ratio | | | [facility] | | | | | | MEDICAL | | | | | | CENTER - | | | | | | LABORATORY | | + + + + + + | BUN/Creatin | 14.9 | | [facility] | | | ine [...] | [address] | [place] | [phone] | | [facility] | | [address] | | | - LABORATORY | | | | + + + + + CBC with Differential (07/23/2017 12:44 AM PST) + + + + + + | Component | Value | Ref Range | Performed | Pathologist | | | | | At | Signature | + + + + + + | WBC | 9.2 | 4.0 - 11.0 K/uL | [facility] | | | | | | [facility] | | | | | | MEDICAL | | | | | | CENTER - | | | | | | LABORATORY | | + + + + + + | RBC | 4.36 | 3.70 - 5.20 | [facility] | | | | | M/uL | [facility] | | | | | | MEDICAL | | | | | | CENTER - | | | | | | LABORATORY | | + + + + + + | Hemoglobin | 13.9 | 11.5 - 16.0 | [facility] | | | | | g/dL | [facility] | | | | | | MEDICAL | | | | | | CENTER - | | | | | | LABORATORY | | + + + + + + | Hematocrit | 40.4 | 34.0 - 47.0 % | [facility] | | | | | | [facility] | | | | | | MEDICAL | | | | | | CENTER - | | | | | | LABORATORY | | + + + + + + | MCV | 92.7 | 83.0 - 101.0 fL | [facility] | | | | | | [facility] | | | | | | MEDICAL | | | | | | CENTER - | | | | | | LABORATORY | | + + + + + + | MCH | 31.9 | 28.0 - 35.0 pg | [facility] | | | | | | [facility] | | | | | | MEDICAL | | | | | | CENTER - | | | | | | LABORATORY | | + + + + + + | MCHC | 34.4 | 32.0 - 36.0 | [facility] | | | | | g/dL | [facility] | | | | | | MEDICAL | | | | | | CENTER - | | | | | | LABORATORY | | + + + + + + | RDW-CV | 12.8 | <15.0 % | [facility] | | | | | | [facility] | | | | | | MEDICAL | | | | | | CENTER - | | | | | | LABORATORY | | + + + + + + | Platelet | 292 | 140 - 440 K/uL | [facility] | | | Count | | | [facility] | | | | | | MEDICAL | | | | | | CENTER - | | | | | | LABORATORY | | + + + + + + | MPV | 8.0 | fL | [facility] | | | | | | [facility] | | | | | | MEDICAL | | | | | | CENTER - | | | | | | LABORATORY | | + + + + + + | % | 50.5 | 45.0 - 82.0 % | [facility] | | | Neutrophils | | | [facility] | | | | | | MEDICAL | | | | | | CENTER - | | | | | | LABORATORY | | + + + + + + | % | 39.6 | 20.0 - 45.0 % | [facility] | | | Lymphocytes | | | [facility] | | | | | | MEDICAL | | | | | | CENTER - | | | | | | LABORATORY | | + + + + + + | % Monocytes | 6.7 | 4.0 - 12.0 % | [facility] | | | | | | [facility] | | | | | | MEDICAL | | | | | | CENTER - | | | | | | LABORATORY | | + + + + + + | % | 2.2 | 0.0 - 5.0 % | [facility] | | | Eosinophils | | | [facility] | | | | | | MEDICAL | | | | | | CENTER - | | | | | | LABORATORY | | + + + + + + | % Basophils | 1.0 | 0.0 - 1.0 % | [facility] | | | | | | [facility] | | | | | | MEDICAL | | | | | | CENTER - | | | | | | LABORATORY | | + + + + + + | Absolute | 4.60 | 1.80 - 8.50 | [facility] | | | Neutrophils | | K/uL | [facility] | | | | | | MEDICAL | | | | | | CENTER - | | | | | | LABORATORY | | + + + + + + | Absolute | 3.70 (H) | 0.60 - 3.20 | [facility] | | | Lymphocytes | | K/uL | [facility] | | | | | | MEDICAL | | | | | | CENTER - | | | | | | LABORATORY | | + + + + + + | Absolute | 0.60 | 0.00 - 1.00 | [facility] | | | Monocytes | | K/uL | [facility] | | | | | | MEDICAL | | | | | | CENTER - | | | | | | LABORATORY | | + + + + + + | Absolute | 0.20 | 0.00 - 0.40 | [facility] | | | Eosinophils | | K/uL | [facility] | | | | [...] ST. | [address] | [place], [place] | [phone] | | [facility] | | [address] | | | - LABORATORY | | | | + + + + + XR Chest AP Portable (07/23/2017 12:43 AM PST) + + | Specimen | + + | | + + + + + | Narrative | Performed At | + + + | XR CHEST AP PORTABLE 07/23/2017 12:38 AM HISTORY: CHEST PAIN. | [facility] | | COMPARISON: 08/04/2016 Findings: The bilateral lungs are clear | | | with no evidence for pleural effusion or pneumothorax. Heart size is | | | within normal limits. Pulmonary vasculature is within normal limits. | | | Aorta is normal. Mediastinum is unremarkable. No acute osseous or | | | soft tissue abnormality identified. IMPRESSION - No acute | | | intrathoracic abnormality identified. Dictated and Signed by: Maximo | | | MD Benny Electronically signed: 07/23/2017 8:41 AM | | + + + + + | Procedure Note | + + | Keo, Rad Results In - 07/23/2017 8:44 AM PST XR CHEST AP PORTABLE 07/23/2017 12:38 | | AMHISTORY: CHEST PAIN.COMPARISON: 08/04/2016Findings:The bilateral lungs are clear with | | no evidence for pleural effusion orpneumothorax. Heart size is within normal limits. | | Pulmonary vasculature iswithin normal limits. Aorta is normal. Mediastinum is | | unremarkable. No acuteosseous or soft tissue abnormality identified. IMPRESSION - No | | acute intrathoracic abnormality identified.Dictated and Signed by: Maximo Zapata MD | | Electronically signed: 07/23/2017 8:41 AM | |The bilateral lungs are clear with no evidence for pleural effusion or | |pneumothorax. Heart size is within normal limits. Pulmonary vasculature is | |within normal limits. Aorta is normal. Mediastinum is unremarkable. No acute | |osseous or soft tissue abnormality identified. | | | |IMPRESSION - | |No acute intrathoracic abnormality identified. | | | |Dictated and Signed by: Maximo Zapata MD | | Electronically signed: 07/23/2017 8:41 AM | + + + +---------+ + + | Performing | Address | City/State/Zipcode | Phone Number | | Organization | | | | + +---------+ + + | [facility] | | | | + +---------+ + + ECG 12 lead (07/23/2017 12:36 AM PST) + + + + + + | Component | Value | Ref Range | Performed | Pathologist | | | | | At | Signature | + + + + + + | VENTRICULAR | 74 | BPM | [facility] | | | RATE EKG | | | | | + + + + + + | ATRIAL RATE | 74 | BPM | [facility] | | + + + + + + | P-R | 176 | ms | [facility] | | | INTERVAL | | | | | + + + + + + | QRS | 88 | ms | [facility] | | | DURATION | | | | | + + + + + + | Q-T | 394 | ms | [facility] | | | INTERVAL | | | | | + + + + + + | Q-T | 437 | ms | [facility] | | | INTERVAL | | | | | | (CORRECTED) | | | | | + + + + + + | P WAVE AXIS | 30 | degrees | [facility] | | + + + + + + | QRS AXIS | 18 | degrees | [facility] | | + + + + + + | T AXIS | 24 | degrees | [facility] | | + + + + + + | INTERPRETAT | Normal sinus | | [facility] | | | ION TEXT | rhythmNonspecific T wave | | | | | | abnormalityWhen | | | | | | compared with ECG of | | | | | | 04-AUG-2016 | | | | | | 22:52,isolated ST | | | | | | elevation in lead V6 is | | | | | | no longer | | | | | | presentConfirmed by | | | | | | STEPH CALVILLO MD ([id number]) | | | | | | on 07/23/2017 7:23:58 AM | | | | | | | | | | + + + + + + + + | Specimen | + + | | + + + + + | Narrative | Performed At | + + + | | | + + + + +---------+ + + | Performing | Address | City/State/Zipcode | Phone Number | | Organization | | | | + +---------+ + + | [facility] | | | | + +---------+ + + documented in this encounter Visit Diagnoses + + | Diagnosis | + + | Hyperventilation syndrome - Primary Respiratory malfunction arising from mental | | factors | + + | Fainting spell Syncope and collapse | + + documented in this encounter Administered Medications + + + +------+------+------+ | Medication Order | MAR | Action | Dose | Rate | Site | | | Action | Date | | | | + + + +------+------+------+ | LORazepam (ATIVAN) 1 mg tablet | Dispense | 07/23/20 | 1 mg | | | | (ER Prepack) 1-2 mg 1-2 mg, | to Home | 17 2:06 | | | | | Oral, ONCE, 07/23/17 at 0205, | | AM PST | | | | | For 1 dose, 1 tablet(s) every 8 | | | | | | | hours prn hyperventilation | | | | | | | symptoms Dispense for home use., | | | | | | | | | | | | | + + + +------+------+------+ +---+---+ | | | +---+---+ + +-------+ +------+---+---+ | LORazepam (ATIVAN) injection 1 | Given | 07/23/20 | 1 mg | | | | mg 1 mg, Intravenous, ONCE, Sun | | 17 1:33 | | | | | 07/23/17 at 0130, For 1 dose | | AM PST | | | | + +-------+ +------+---+---+ +---+---+ | | | +---+---+ documented in this encounter"
--- OUTSIDE RECORDS SUMMARY | ~2019-08-01 | XMS | Encounter Summary ---
Demographics + + + | Address | [address] | | | [place] [address] | + + + | Home Phone | | + + + | Preferred Language | Unknown | + + + | Marital Status | | + + + | Evangelical Affiliation | Unknown | + + + | Race | White | + + + | Ethnic Group | Not or | + + + Author + + + | Author | [facility] | + + + | Organization | [facility] | + + + | Address | [...] Team Providers + +------+ + | Care Blending Coordinator Name | Role | Phone | + +------+ + | Fausto Montesinos DO | PCP | | + +------+ + Encounter Details +--------+ + + + + | Date | Type | Department | Care Team | Description | +--------+ + + + + | 04/26/ | Ancillary | Registration [id number] | Tom Menjivar, | | | 2006 | Registratio | [facility] | [address] | | | | n | Dave Mailcode: [id number] | [place], [place] | | | | | [place], [place] | [address] | | | | | [address] | [phone] | | | | | [phone] | | | +--------+ + + + [...]
--- OUTSIDE RECORDS SUMMARY | ~2019-08-01 | XMS | Encounter Summary ---
Demographics + + + | Address | [address] | | | [place] [address] | + + + | Home Phone | | + + + | Preferred Language | Unknown | + + + | Marital Status | | + + + | Tenriism Affiliation | Unknown | + + + | Race | Unknown | + + + | Ethnic Group | Unknown | + + + Author + + + | Author | [facility] | | | and [place] | + + + | Organization | [facility] | | | and [place] | + + + | Address | Unknown | + + + | Phone | Unavailable | + + + Support + + + + + | Name | Relationship | Address | Phone | + + + + + | Alexsander Harris | ECON | [address] | | | | | [place] [address] | | + + + + + Care Team Providers + +------+ + | Care Physics Technician Name | Role | Phone | [...] + + | 07/23/ | Emergency | [facility] | Marquis Wilkins, | 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 | | | | | | units CAPS | | | | | | + + + +---------+ + + | Coenzyme Q10 | Take 120 mg by mouth | | 0 | | | | (COQ10) 100 MG CAPS | 2 times daily. | | | | | + + + +---------+ + + | Virgilina 3 1000 MG | Take 2,000 mg [...] + | [facility] | [address] | [place] | [phone] | | [facility] | | [address] | | | - LABORATORY | | [...] | | | | | | [employer] | | | | | [...] [address] | [place] | [phone] | | [facility] | | [address] | | | - LABORATORY | | [...] | mL/min/1.73m2 | [facility] | | | [place]IAN | RATE,ESTIMATED | | MEDICAL | | | | mL/min/1.00n5Aixd than | | CENTER - | | [...] [address] | [place] | [phone] | | [facility] | | [address] | | | - LABORATORY | | [...] ST. | [address] | [place], [place] | [phone] | | [facility] | | [address] | | | - LABORATORY | | [...] | | | | STEPH CALVILLO MD ([id number]) | | | | | | on [...]
--- OUTSIDE RECORDS SUMMARY | ~2019-08-01 | XMS | Encounter Summary ---
Demographics + + + | Address | [address] | | | [place] [address] | + + + | Home Phone | | + + + | Preferred Language | Unknown | + + + | Marital Status | | + + + | Anabaptism Affiliation | Unknown | + + + | Race | Unknown | + + + | Ethnic Group | Unknown | + + + Author + + + | Author | [facility] | | | and [place] | + + + | Organization | [facility] | | | and [...] | | | | | [place] [address] | | + + + + + Care Team Providers + +------+ + | Care Hardwood Sawyer Name | Role | Phone | + [...] Description | +--------+---------+ + + + | 11/01/ | Office | [facility] | Raquel Figueroa MD | ABILIO (obstructive | | 2018 | Visit | SLEEP DISORDER [address] | [address] | sleep apnea) | | | | [address] | [place] | (Primary Dx) | | | | [place] [address] | [address] | | | | | [phone] | | | +--------+---------+ + + + [...] + + + | Blood Pressure | 140/100 | 11/01/2017 1:24 PM | | | | | PST | | + + + + + | Pulse | 82 | 11/01/2017 1:24 PM | | | | | PST | | + + + + + | Temperature | - | - | | + + + + + | Respiratory Rate | 16 | 11/01/2017 1:24 PM | | | | | PST | | + + + + + | Oxygen Saturation | 92% | 11/01/2017 1:24 PM | | | | | PST | | + + + + + | Inhaled Oxygen | - | - | | | Concentration | | | | + + + + + | Weight | 113.5 kg (250 lb 3.6 | 11/01/2017 1:24 PM | | | | oz) | PST | | + + + + + | Height | - | - | | + + + + + | Body Mass Index | 44.32 | 07/30/2017 10:29 AM | | | | | PST | | + + + + + documented in this encounter Progress Notes Raquel Figueroa MD - 11/01/2017 1:30 PM PST Amparo Harris is a 42 y.o. year old female is here for follow-up for sleep apnea. INTERVAL HISTORY The patient's last clinic visit was 09/13/17. she underwent a polysomnography on August 14, 2017, demonstrating mild obstructive sleep apnea with RDI of 13 and eliana oxygen saturation of 84%. She was started on auto CPAP at 5- 15 cm H2O. Today, she says she has been trying to use the machine but struggling. She has claustropho marjorie and has to use a fullface mask and then somewhat hard for her to tolerate it. She has t o lift the mask throughout the night because of her claustrophobia. She though would like t o continue to use the machine. She says one night she was able to keep the mask and she sl ept much better. He is worried that she would not meet compliance criteria for insurance. Her sister had pancreatic cancer couple of weeks ago, and she feels overwhelmed if she wants to force herself to use the machine. PAP STATISTICS: [employer]: [employer] APAP: 5-15 cm Median p: 7.7 Max p: 10.6 Days not used: Average daily usage: 3:47 % >= 4 hrs: 45% AHI: 0.3 PROBLEM LIST There are no active problems to display for this patient. ALLERGIES Allergies Allergen Reactions Penicillins Rash MEDICATIONS Prior to Admission medications Medication Sig Start Date End Date Taking? Authorizing Provider albuterol 2.5 mg/3 mL nebulizer solution Take 2.5 mg by nebulization as needed for Wheezing . Yes Historical ProviderMD APPLE CIDER VINEGAR PO Take by mouth. [...] Daily. Yes Historical ProviderMD Cholecalciferol (VITAMIN D-3) 56723 units CAPS Take 10,000 Units by mouth Daily. Yes Hist orical ProviderMD Coenzyme Q10 (COQ10) 100 MG CAPS Take 120 mg by mouth. Yes Historical Provider, magnesium, as oxide, 250 MG tablet Take 500 mg by mouth Daily. Yes Historical ProviderPatt Fawnskin 3 1000 MG CAPS Take 3,000 mg by mouth. Yes Historical ProviderMD prazosin (MINIPRESS) 1 mg capsule Take 1 mg by mouth nightly. Yes Historical ProviderMD THYROID PO Take by mouth. Yes Historical ProviderMD Turmeric (CURCUMIN 95) 500 MG CAPS Take by mouth. Yes Historical ProviderMD vitamin E 1000 UNITS capsule Take 1,000 Units by mouth Daily. Yes Historical ProviderMD PHYSICAL EXAM Vitals: 11/01/17 1324 BP: (!) 140/100 Pulse: 82 Resp: 16 PainSc: 0 - No pain GEN: Pleasant, appropriate affect, NAD. NEURO: Alert, normal gait. ASSESSMENT - Obstructive sleep apnea: treated with auto CPAP at 5-15 cm H2O with good objective and s ubjective response. She was struggling because of claustrophobia and having to wear a fullf lorie mask. She is also under emotional stress as her sister who was her best friend passed a way recently. She though would like to continue to use the machine and feels she sleeps bet ter with it. Encouraged her to continue to use the machine. I encouraged her to use it jose m etimes during the day to improve her tolerance. I also adjusted tubing temperature and hum idity setting today. PLAN continue CPAP at 5-15 cm H2O. Return to clinic in 4-8 weeks and sooner if needed. Thank you for the opportunity to participate in this patient's care. Portions of this chart may have been created with [employer] voice recognition software. Occasi onal wrong-word or sound-alike substitutions may have occurred due to the inherent farnsworth itations of voice recognition software. Please read the chart carefully and recognize, using context, where these substitutions have occurred. documented in this encounter Plan of Treatment Not on filedocumented as of this encounter Visit Diagnoses + + | Diagnosis | + + | ABILIO (obstructive sleep apnea) - Primary Obstructive sleep apnea (adult) (pediatric) | + + documented in this encounter"
--- OUTSIDE RECORDS SUMMARY | ~2019-08-01 | XMS | Encounter Summary ---
Demographics + + + | Address | [address] | | | [place] [address] | + + + | Home Phone | | + + + | Preferred Language | Unknown | + + + | Marital Status | | + + + | Nondenominational Affiliation | Unknown | + + + | Race | Unknown | + + + | Ethnic Group | Unknown | + + + Author + + + | Author | [facility] | | | and [place] | + + + | Organization | [facility] | | | and [place] | + + + | Address | Unknown | + + + | Phone | Unavailable | + + + Support + + + + + | Name | Relationship | Address | Phone | + + + + + | Alexsander Harris | ECON | [address] | | | | | [place] [address] | | + + + + + Care Team Providers + +------+ + | Care Proof Technician Name | Role | Phone | + +------+ + PCP | Unavailable | + +------+ + Encounter Details +--------+ + + + + | Date | Type | Department | Care Team | Description | +--------+ + + + + | 01/22/ | [facility] | [facility] | Madhu Agudelo, | | | 2007 | Encounter | MED CTR XRAY [address] | MD [address] | | | | | [place] | [address] | | | | | [place] [address] | [address] | | | | | [phone] | [phone] | | | | | | | [...]
--- OUTSIDE RECORDS SUMMARY | ~2019-08-01 | XMS | Encounter Summary ---
Demographics + + + | Address | [address] | | | [place] [address] | + + + | Home Phone | | + + + | Preferred Language | Unknown | + + + | Marital Status | | + + + | Islam Affiliation | Unknown | + + + | Race | Unknown | + + + | Ethnic Group | Unknown | + + + Author + + + | Author | [facility] | | | and Jorge | + + + | Organization | [facility] | | | and [...] | | | | | [place] [address] | | + + + + + Care Team Providers + +------+ + | Care Airplane Inspector Name | Role | Phone | + +------+ + | Fausto Montesinos DO | PCP | | + +------+ + Reason for Visit + + + | Reason | Comments | + + + | Fever (9 Weeks To 74 | | | Years) | | + + + | Shortness of Breath | | + + + | Emesis | | + + + Encounter Details +--------+ + + + + | Date | Type | Department | Care Team | Description | +--------+ + + + + | 12/04/ | Emergency | [facility] | Enzo Aguilera, | Malaise and fatigue | | 2016 | | [facility] | MD [address] | (Primary Dx) | | | | CENTER [address] | [facility] | | | | | [place] | [place] [address] | | | | | [address] | [phone] | | | | | [phone] | | | +--------+ + + + + Social History + +-------+ +--------+------+ | Tobacco Use | Types | Packs/Day | Years | Date | | | | | Used | | + +-------+ +--------+------+ | Former Smoker | | | | | + +-------+ +--------+------+ + + +---------+ + | Alcohol Use | Drinks/Week | oz/Week | Comments | + + +---------+ + | No | | | | + + +---------+ + + + [...] + + + | Blood Pressure | 129/77 | 12/05/2015 9:52 PM | | | | | PDT | | + + + + + | Pulse | 97 | 12/05/2015 9:52 PM | | | | | PDT | | + + + + + | Temperature | 37.6 C (99.7 F) | 12/05/2015 7:25 PM | | | | | PDT | | + + + + + | Respiratory Rate | 16 | 12/05/2015 9:52 PM | | | | | PDT | | + + + + + | Oxygen Saturation | 97% | 12/05/2015 9:52 PM | | | | | PDT | | + + + + + | Inhaled Oxygen | - | - | | | Concentration | | | | + + + + + | Weight | 117.9 kg (260 lb) | 12/05/2015 7:25 PM | | | | | PDT | | + + + + + | Height | 165.1 cm (5' 5") | 12/05/2015 7:25 PM | | | | | PDT | | + + + + + | Body Mass Index | 43.27 | 12/05/2015 7:25 PM | | | | | PDT | | + + + + + documented in this encounter Discharge Instructions Instructions Enzo Aguilera MD - 12/05/2015Prednisone for 5 days Follow up with your primary care doctor Return if your symptoms worsen or other concerns develop AttachmentsThe following attachments cannot be sent through Care Everywhere.WEAKNESS (UNCRICKEY TAIN CAUSE) (FILIPINO)documented in this encounter Medications at Time of [...] 0 | | | | (VITAMIN D-3) 82683 | mouth Daily. | | | | | | units CAPS | | | | | | + + + +---------+ + + | Coenzyme Q10 | Take 120 mg by mouth | | 0 | | | | (COQ10) 100 MG CAPS | 2 times daily. | | | | | + + + +---------+ + + | [place] 3 1000 MG | Take 2,000 mg [...] + + + +---------+ + + | levothyroxine | Take 150 mcg by | | 0 | | | | (SYNTHROID, | mouth every morning | | | | 7 | | LEVOTHROID) 150 mcg | (before breakfast). | | | | | | tablet [...] + +---------+ + + | predniSONE | Take 6 tablets by | 30 | 0 | 12/05/19 | | | (DELTASONE) 10 mg | mouth Daily for 5 | tablet | | 16 | 6 | | tablet | days. | | | | | + + + +---------+ + + | Turmeric Curcuma | 2,000 mg by Does not [...] +--------+ + + + | XR CHEST PA AND | STAT | 12/05/2015 | | Results for this | | LATERAL | | 8:17 PM | | procedure are in the | | | | PDT | | results section. | + +--------+ + + + | URINALYSIS WITH | STAT | 12/05/2015 | | Results for this | | MICROSCOPIC WITH | | 8:13 PM | | procedure are in the | | CULTURE IF INDICATED | | PDT | | results section. | + +--------+ + + + | INFLUENZA A AND B | Routin | 12/05/2015 | | Results for this | | RNA, NAAT | e | 8:11 PM | | procedure are in the | | | | PDT | | results section. | + +--------+ + + + | EXTRA GOLD TOP TUBE | Routin | 12/05/2015 | | Results for this | | | e | 8:11 PM | | procedure are in the | | | | PDT | | results section. | + +--------+ + + + | EXTRA BLUE TOP TUBE | Routin | 12/05/2015 | | Results for this | | | e | 8:11 PM | | procedure are in the | | | | PDT | | results section. | + +--------+ + + + | SEDIMENTATION RATE | STAT | 12/05/2015 | | Results for this | | | | 8:10 PM | | procedure are in the | | | | PDT | | results section. | + +--------+ + + + | CULTURE, BLOOD | STAT | 12/05/2015 | | Results for this | | | | 8:10 PM | | procedure are in the | | | | PDT | | results section. | + +--------+ + + + | CBC WITH | STAT | 12/05/2015 | | Results for this | | DIFFERENTIAL | | 8:10 PM | | procedure are in the | | | | PDT | | results section. | + +--------+ + + + | C-REACTIVE PROTEIN | STAT | 12/05/2015 | | Results for this | | | | 8:10 PM | | procedure are in the | | | | PDT | | results section. | + +--------+ + + + | TSH | STAT | 12/05/2015 | | Results for this | | | | 8:10 PM | | procedure are in the | | | | PDT | | results section. | + +--------+ + + + | LACTIC ACID | STAT | 12/05/2015 | | Results for this | | | | 8:10 PM | | procedure are in the | | | | PDT | | results section. | + +--------+ + + + | COMPREHENSIVE | STAT | 12/05/2015 | | Results for this | | METABOLIC PANEL | | 8:10 PM | | procedure are in the | | | | PDT | | results section. | + +--------+ + + + | CULTURE, BLOOD | STAT | 12/05/2015 | | Results for this | | | | 8:08 PM | | procedure are in the | | | | PDT | | results section. | + +--------+ + + + documented in this encounter Results XR Chest PA and Lateral (12/05/2015 8:17 PM PDT) + + | Specimen | + + | | + + + + + | Narrative | Performed At | + + + | XR CHEST PA AND LATERAL 12/05/2015 7:41 PM HISTORY: Shortness of | [facility] | | breath. COMPARISON: None. Findings: Heart size is within | | | normal limits. Aorta is normal. Mediastinum is unremarkable. Central | | | pulmonary vasculature is normal. The bilateral lungs are clear with | | | no evidence for pleural effusion or pneumothorax. There are no acute | | | osseous abnormalities. There are cholecystectomy clips. IMPRESSION | | | - No acute findings. Dictated and Signed by: Anthony Shen MD | | | Electronically signed: 12/06/2015 9:19 AM | | + + + + + | Procedure Note | + + | Keo, Rad Results In - 12/06/2015 9:22 AM PDT XR CHEST PA AND LATERAL 12/05/2015 7:41 | | PMHISTORY: Shortness of breath.COMPARISON: None.Findings:Heart size is within normal | | limits. Aorta is normal. Mediastinum isunremarkable. Central pulmonary vasculature is | | normal. The bilateral lungs areclear with no evidence for pleural effusion or | | pneumothorax. There are no acuteosseous abnormalities. There are cholecystectomy | | clips.IMPRESSION -No acute findings.Dictated and Signed by: Anthony Shen MD | | Electronically signed: 12/06/2015 9:19 AM | |Heart size is within normal limits. Aorta is normal. Mediastinum is | |unremarkable. Central pulmonary vasculature is normal. The bilateral lungs are | |clear with no evidence for pleural effusion or pneumothorax. There are no acute | |osseous abnormalities. There are cholecystectomy clips. | | | |IMPRESSION - | |No acute findings. | | | |Dictated and Signed by: Anthony Shen MD | | Electronically signed: 12/06/2015 9:19 AM | + + + +---------+ + + | Performing | Address | City/State/Zipcode | Phone Number | | Organization | | | | + +---------+ + + | [facility] | | | | + +---------+ + + Urinalysis with Microscopic with Culture if Indicated (12/05/2015 8:13 PM PDT) + + + + + [...] + + + + | Clarity | Clear | | [facility] | | | | | | [facility] | | | | | [facility] - | | | | | | LABORATORY | | + + + + + + | pH, Urine | 9.0 (H) | 5.0 - 8.0 | [facility] | | | | | [facility] | | | | | | [facility]ICAL | | | | | | CENTER - | | | | | | LABORATORY | | + + + + + + | Specific | 1.009 | 1.001 - 1.030 | [facility] | | | [place] | | | [facility] | | | | | | MEDICAL | | | | | | CENTER - | | | | | | LABORATORY | | + + + + + + | Protein, | Negative | Negative | [facility] | | | Urine | | | [facility] | | [...] | | | Urine | | | [facility] | | [...] + | Urobilinoge | Negative | 0.2 E.U./dL, | [facility] | | | n, Urine | | 1.0 E.U./dL, | [facility] | | | | | Negative | MEDICAL | | | | | [...] + + + | BACTERIA UA | Negative | Negative /HPF | [facility] | | [...] + + + + + + | URINE | Urine Culture Not | | [facility] | | | COMMENT | Indicated | | [facility] | | | | | | MEDICAL | | | | | | CENTER - | | | | | | LABORATORY | | + + + + + + + + | Specimen | + + | Urine - Urine | | specimen obtained by | | clean catch | | procedure (specimen) | + + + + + + + | Performing | Address | City/State/Zipcode | Phone Number | | Organization | | | | + + + + + | [facility] | [address] | [place] | [phone] | | [facility] | | [address] | | | - LABORATORY | | | | + + + + + Extra Gold Top Tube (12/05/2015 8:11 PM PDT) + +-------+ + + + | Component | Value | Ref Range | Performed | Pathologist | | | | | At | Signature | + +-------+ + + + | Extra Gold | Done | | [facility] | | | Top Tube | | | [facility] | | [...] + | [facility] | [address] | [place] | [phone] | | [facility] | | [address] | | | - LABORATORY | | | | + + + + + Extra Blue Top Tube (12/05/2015 8:11 PM PDT) + +-------+ + + + | Component | Value | Ref Range | Performed | Pathologist | | | | | At | Signature | + +-------+ + + + | Extra Blue | Done | | [facility] | | | Top Tube | | | [facility] | | [address] | [place] | [phone] | | [facility] | | [address] | | | - LABORATORY | | | | + + + + + Influenza A and B RNA, NAAT (12/05/2015 8:11 PM PDT) + + + + + [...] + | Specimen | + + | Respiratory - Entire | | nasopharynx (body | | structure) | + + + + + + + | Performing | Address | City/State/Zipcode | Phone Number | | Organization | | | | + + + + + | [facility] | [address] | [place] | [phone] | | [facility] | | [address] | | | - LABORATORY | | | | + + + + + Culture, Blood (12/05/2015 8:10 PM PDT) + + + + + + | Component | Value | Ref Range | Performed | Pathologist | | | | | At | Signature | + + + + + + | Culture | No Growth | | [facility] | | | | | [...] + | [facility] | [address] | [place], [place] | [phone] | | [facility] | | [address] | | | - LABORATORY | | | | + + + + + TSH (12/05/2015 8:10 PM PDT) + + + + + + | Component | Value | Ref Range | Performed | Pathologist | | | | | At | Signature | + + + + + + | TSH | 2.88Comment: All TSH | 0.34 - 5.60 | [facility] | | | | samples are screened | uIU/mL | [facility] | | | | using a 2nd Generation | | MEDICAL | | | | test, and are reflexed | | CENTER - | | | | to a 3rd Generation test | | LABORATORY | | | | if indicated. | | | | + + + + + + + + | Specimen | + + | Blood | + + + + + + + | Performing | Address | City/State/Zipcode | Phone Number | | Organization | | | | + + + + + | [facility] | [address] | [place] | [phone] | | [facility] | | [address] | | | - LABORATORY | | | | + + + + + Sedimentation Rate (12/05/2015 8:10 PM PDT) + +--------+ + + + | Component | Value | Ref Range | Performed | Pathologist | | | | | At | Signature | + +--------+ + + + | ESR | 52 (H) | <20 mm/hr | [facility] | | | | | [facility] | | | | | | MEDICAL | | | | | | CENTER - | | | | | | LABORATORY | | + +--------+ + + + + + | Specimen | + + | Blood | + + + + + + + | Performing | Address | City/State/Zipcode | Phone Number | | Organization | | | | + + + + + | [facility] | [address] | [place] | [phone] | | [facility] | | [address] | | | - LABORATORY | | | | + + + + + C-Reactive Protein (12/05/2015 8:10 PM PDT) + + + + + + | Component | Value | Ref Range | Performed | Pathologist | | | | | At | Signature | + + + + + + | CRP | 21.43 (H) | <8.00 mg/L | [facility] | | | | | | [facility] [...] + | [facility] | [address] | [place] | [phone] | | [facility] | | [address] | | | - LABORATORY | | | | + + + + + Lactic Acid (12/05/2015 8:10 PM PDT) + +-------+ + + + | Component | Value | Ref Range | Performed | Pathologist | | | | | At | Signature | + +-------+ + + + | Lactate | 1.2 | 0.5 - 2.2 | [facility] | [address] | [place] | [phone] | | [facility] | | [address] | | | - LABORATORY | | | | + + + + + Comprehensive Metabolic Panel (12/05/2015 8:10 PM PDT) + + + + + + | Component | Value | Ref Range | Performed | Pathologist | | | | | At | Signature | + + + + + + | Na | 137 | 136 - 149 | [facility] | | | | | mmol/L | [facility] | | | | | | MEDICAL | | | | | | CENTER - | | | | | | LABORATORY | | + + + + + + | K | 3.7 | 3.5 - 5.1 | [facility] | | | | | mmol/L | [facility] | | | | | | MEDICAL | | | | | | CENTER - | | | | | | LABORATORY | | + + + + + + | Cl | 103 | 98 - 109 mmol/L | [facility] [...] + + + + | Glucose | 99 | 70 - 109 mg/dL | [facility] | | | | | | [facility] | | | | | | MEDICAL | | | | | | CENTER - | | | | | | LABORATORY | | + + + + + + | BUN | 10 | 7 - 18 mg/dL | [facility] | | | | | | [facility] | | [facility] | | | [facility] | | | | | | CENTER - | | | | | | LABORATORY | | + + + + + + | Creatinine | 0.74 | 0.60 - 1.30 | [facility] | | | | | mg/dL | [facility] | | | | | | MEDICAL | | | | | | CENTER - | | | | | | LABORATORY | | + + + + + + | eGFR if not | >60Comment: GLOMERULAR | >=60 | [facility] | | | | FILTRATION | mL/min/1.73m2 | [facility] | | | CAMBODIAN | RATE,ESTIMATED | | MEDICAL | | | | mL/min/1.30x5Wzdo than | | CENTER - | | [...] + + + + | Calcium | 8.8 | 8.3 - 10.5 | [facility] | | | | | mg/dL | [facility] | | | | | | MEDICAL | | | | | | CENTER - | | | | | | LABORATORY | | + + + + + + | Albumin | 3.6 | 3.2 - 5.0 g/dL | [facility] | | | | | | [facility] | | | | | | MEDICAL | | | | | | CENTER - | | | | | | LABORATORY | | + + + + + + | Bilirubin | 0.8 | 0.1 - 1.5 mg/dL | [facility] | | | Total | | | [facility] | | | | | | MEDICAL | | | | | | CENTER - | | | | | | LABORATORY | | + + + + + + | Total | 6.6 | 6.0 - 7.8 g/dL | [facility] | | | Protein | | | [facility] | | | | | | MEDICAL | | | | | | CENTER - | | | | | | LABORATORY | | + + + + + + | AST | 51 (H) | 10 - 42 U/L | [facility] | | | | | | [facility] | | | | | | MEDICAL | | | | | | CENTER - | | | | | | LABORATORY | | + + + + + + | ALT | 76 (H) | 6 - 45 U/L | [facility] | | | | | | [facility] | | | | | | MEDICAL | | | | | | CENTER - | | | | | | LABORATORY | | + + + + + + | Alkaline | 113 (H) | 40 - 110 U/L | [facility] | | | Phosphatase | | | [facility] | | | | | | MEDICAL | | | | | | CENTER - | | | | | | LABORATORY | | + + + + + + | Globulin | 3.0 | 2.1 - 3.8 g/dL | [facility] | | | | | | [facility] | | | | | | MEDICAL | | | | | | CENTER - | | | | | | LABORATORY | | + + + + + + | Albumin/Millie | 1.2 | 0.8 - 2.0 | [facility] | | | bulin Ratio | | | [facility] | | | | | | MEDICAL | | | | | | CENTER - | | | | | | LABORATORY | | + + + + + + | BUN/Creatin | 13.5 | | [facility] | | | ine [...] [address] | [place] | [phone] | | [facility] | | [address] | | | - LABORATORY | | | | + + + + + CBC with Differential (12/05/2015 8:10 PM PDT) + + + + + + | Component | Value | Ref Range | Performed | Pathologist | | | | | At | Signature | + + + + + + | WBC | 6.0 | 4.0 - 11.0 K/uL | [facility] | | | | | | [facility] | | | | | | MEDICAL | | | | | | CENTER - | | | | | | LABORATORY | | + + + + + + | RBC | 3.42 (L) | 3.70 - 5.20 | [facility] | | | | | M/uL | [facility] | | | | | | MEDICAL | | | | | | CENTER - | | | | | | LABORATORY | | + + + + + + | Hemoglobin | 11.0 (L) | 11.5 - 16.0 | [facility] | | | | | g/dL | [facility] | | | | | | MEDICAL | | | | | | CENTER - | | | | | | LABORATORY | | + + + + + + | Hematocrit | 31.8 (L) | 34.0 - 47.0 % | [facility] | | | | | | [facility] | | | | | | MEDICAL | | | | | | CENTER - | | | | | | LABORATORY | | + + + + + + | MCV | 93.1 | 83.0 - 101.0 fL | [facility] | | | | | | [facility] | | | | | | MEDICAL | | | | | | CENTER - | | | | | | LABORATORY | | + + + + + + | MCH | 32.1 | 28.0 - 35.0 pg | [facility] | | | | | | [facility] | | | | | | MEDICAL | | | | | | CENTER - | | | | | | LABORATORY | | + + + + + + | MCHC | 34.5 | 32.0 - 36.0 | [facility] | | | | | g/dL | [facility] | | | | | | MEDICAL | | | | | | CENTER - | | | | | | LABORATORY | | + + + + + + | RDW-CV | 16.0 (H) | <15.0 % | [facility] | | | | | | [facility] | | | | | | MEDICAL | | | | | | CENTER - | | | | | | LABORATORY | | + + + + + + | Platelet | 178 | 140 - 440 K/uL | [facility] | | | Count | | | [facility] | | | [facility] | | MEDICAL | | | | | | CENTER - | | | | | | LABORATORY | | + + + + + + | MPV | 7.6 | fL | [facility] | | | | | | [facility] | | | | | | MEDICAL | | | | | | CENTER - | | | | | | LABORATORY | | + + + + + + | % | 35.9 (L) | 45.0 - 82.0 % | [facility] | | | Neutrophils | | | [facility] | | | | | | MEDICAL | | | | | | CENTER - | | | | | | LABORATORY | | + + + + + + | % | 53.5 (H) | 20.0 - 45.0 % | [facility] | | | Lymphocytes | | | [facility] | | | | | | MEDICAL | | | | | | CENTER - | | | | | | LABORATORY | | + + + + + + | % Monocytes | 8.0 | 4.0 - 12.0 % | [facility] | | | | | | [facility] | | | | | | MEDICAL | | | | | | CENTER - | | | | | | LABORATORY | | + + + + + + | % | 1.5 | 0.0 - 5.0 % | [facility] | | | Eosinophils | | | [facility] | | [...] + + + + | Absolute | 2.20 | 1.80 - 8.50 | [facility] | | | Neutrophils | | K/uL | [facility] | | | | | | MEDICAL | | | | | | CENTER - | | | | | | LABORATORY | | + + + + + + | Absolute | 3.20 | 0.60 - 3.20 | [facility] | [...] | Absolute | 0.10 | 0.00 - 0.40 | [facility] | [...] + | [facility] | [address] | [place] | [phone] | | [facility] | | [address] | | | - LABORATORY | | | | + + + + + Culture, Blood (12/05/2015 8:08 PM PDT) + + + + + + | Component | Value | Ref Range | Performed | Pathologist | | | | | At | Signature | + + + + + + | Culture | No Growth | | [facility] | | | | | [...] + + | [facility] | [address] | [place] | [phone] | | [facility] | | [address] | | | - LABORATORY | | | | + + + + + documented in this encounter Visit Diagnoses + + | Diagnosis | + + | Malaise and fatigue - Primary Other malaise and fatigue | + + documented in this encounter Administered Medications + +--------+ +-------+------+------+ | Medication Order | MAR | Action | Dose | Rate | Site | | | Action | Date | | | | + +--------+ +-------+------+------+ | predniSONE (DELTASONE) tablet | Given | 12/05/19 | 60 mg | | | | 60 mg 60 mg, Oral, ONCE, Sun | | 16 9:43 | | | | | 12/05/15 at 2125, For 1 dose | | PM PDT | | | | + +--------+ +-------+------+------+ +---+---+ | | | +---+---+ documented in this encounter
--- OUTSIDE RECORDS SUMMARY | ~2019-08-01 | XMS | Encounter Summary ---
Demographics + + + | Address | [address] | | | [place] [address] | + + + | Home Phone | | + + + | Preferred Language | Unknown | + + + | Marital Status | | + + + | Congregational Affiliation | Unknown | + + + | Race | Unknown | + + + | Ethnic Group | Unknown | + + + Author + + + | Author | [facility] | | | and [place] | + + + | Organization | [facility] | | | and [place] | + + + | Address | Unknown | + + + | Phone | Unavailable | + + + Support + + + + + | Name | Relationship | Address | Phone | + + + + + | Alexsander Harris | ECON | [address] | | | | | [place] [address] | | + + + + + Care Team Providers + +------+ + | Care Screen Repairer Crusher Name | Role | Phone | + [...] | +--------+ + + + + | 08/04/ | Emergency | [facility] | WillyEnzo, | Chest pain, | | 2016 - | | [facility] | MD [address] | unspecified type | | | | CENTER [address] | [facility] [place] | (Primary Dx) | | 08/05/ | | [place], [place] | [place] [address] | | | 2016 | | [address] | [phone] | | | | | [phone] | | | +--------+ + + + [...] + + + | Blood Pressure | 133/84 | 08/05/2016 12:00 AM | | | | | PST | | + + + + + | Pulse | 94 | 08/05/2016 12:00 AM | | | | | PST | | + + + + + | Temperature | 37 C (98.6 F) | 08/04/2016 10:31 PM | | | | | PST | | + + + + + | Respiratory Rate | 22 | 08/05/2016 12:00 AM | | | | | PST | | + + + + + | Oxygen Saturation | 97% | 08/05/2016 12:00 AM | | | | | PST | | + + + + + | Inhaled Oxygen | - | - | | | Concentration | | | | + + + + + | Weight | 116.1 kg (256 lb) | 08/04/2016 10:31 PM | | | | | PST | | + + + + + | Height | 165.1 cm (5' 5") | 08/04/2016 10:31 PM | | | | | PST | | + + + + + | Body Mass Index | 42.6 | 08/04/2016 10:31 PM | | | | | PST | | + + + + + documented in this encounter Discharge Instructions Instructions Enzo Aguilera MD - 08/05/2016Follow-up with primary care Return if worse AttachmentsThe following attachments cannot be sent through Care Everywhere.CHEST PAIN, [facility] ERTAIN CAUSE (HONDURAN)documented in this encounter Medications at Time of [...] 0 | | | | (VITAMIN D-3) 710[address] | mouth Daily. | | | | | | units CAPS | | | | | | + + + +---------+--------+ + | Coenzyme Q10 | Take 120 mg by mouth | | 0 | | | | (COQ10) 100 MG CAPS | 2 times daily. | | | | | + + + +---------+--------+ + | Bolivar 3 1000 MG | Take 2,000 mg by | | 0 | | | | CAPS | mouth 2 times daily. | | | | | + + + +---------+--------+ + | vitamin E 1000 | Take 1,000 Units by | | 0 | | | | UNITS capsule | mouth Daily. | | | | | + + + +---------+--------+ + | levothyroxine | Take 150 mcg [...] 9 | + + + +---------+--------+ + | prazosin | Take 1 mg by mouth | | 0 | | | | (MINIPRESS) 1 mg | nightly. | | | | 7 | | capsule | | | | | | + + + +---------+--------+ + | TurmerSantiago leyvauma | 2,000 mg by Does not | | 0 | | | | Kezia (CURCUMIN) | apply route. | | | | 7 | | POWD | | | | | | + + + +---------+--------+ + | Zinc Sulfate (ZINC | Take 10 mg by mouth. | | 0 | | | | 15 PO) | | | | | 7 | + + + +---------+--------+ + documented as of this encounter Plan of Treatment Not on filedocumented as of this encounter Procedures + +--------+ + + + | Procedure Name | Priori | Date/Time | Associated Diagnosis | Comments | | | ty | | | | + +--------+ + + + | XR CHEST PA AND | STAT | 08/04/2016 | | Results for this | | LATERAL | | 11:10 PM | | procedure are in the | | | | PST | | results section. | + +--------+ + + + | ECG 12 LEAD | STAT | 08/04/2016 | | Results for this | | | | 10:52 PM | | procedure are in the | | | | PST | | results section. | + +--------+ + + + | EXTRA GREEN TOP TUBE | Routin | 08/04/2016 | | Results for this | | | e | 10:42 PM | | procedure are in the | | | | PST | | results section. | + +--------+ + + + | D-DIMER | STAT | 08/04/2016 | | Results for this | | | | 10:42 PM | | procedure are in the | | | | PST | | results section. | + +--------+ + + + | CBC WITH | STAT | 08/04/2016 | | Results for this | | DIFFERENTIAL | | 10:42 PM | | procedure are in the | | | | PST | | results section. | + +--------+ + + + | BASIC METABOLIC | STAT | 08/04/2016 | | Results for this | | PANEL | | 10:42 PM | | procedure are in the | | | | PST | | results section. | + +--------+ + + + documented in this encounter Results XR Chest PA and Lateral (08/04/2016 11:10 PM PST) + + | Specimen | + + | | + + + + + | Narrative | Performed At | + + + | EXAM: XR CHEST PA AND LATERAL dated 08/04/2016 10:47 PM HISTORY: | [facility] | | Shortness of breath Comparison: December 05, 2015 TECHNIQUE: | | | Frontal and lateral views of the chest. FINDINGS: The lungs are | | | symmetrically aerated. They are clear. There are no pleural | | | effusions. There is no pneumothorax. The cardiac and mediastinal | | | contours are not enlarged. The visible osseous structures are | | | unremarkable. IMPRESSION - No acute disease. Dictated | | | and Signed by: Ventura Stewart MD Electronically signed: | | | 08/05/2016 8:29 AM | | + + + + + | Procedure Note | + + | Keo, Rad Results In - 08/05/2016 8:32 AM PST EXAM: XR CHEST PA AND LATERAL dated | | 08/04/2016 10:47 PMHISTORY: Shortness of breathComparison: December 05, 2015TECHNIQUE: | | Frontal and lateral views of the chest.FINDINGS:The lungs are symmetrically aerated. | | They are clear. There are no pleuraleffusions. There is no pneumothorax. The cardiac | | and mediastinal contours arenot enlarged. The visible osseous structures are | | unremarkable. IMPRESSION -No acute disease. Dictated and Signed by: Ventura Stewart MD | | Electronically signed: 08/05/2016 8:29 AM | | | |FINDINGS: | |The lungs are symmetrically aerated. They are clear. There are no pleural | |effusions. There is no pneumothorax. The cardiac and mediastinal contours are | |not enlarged. The visible osseous structures are unremarkable. | | | |IMPRESSION - | | | |No acute disease. | | | |Dictated and Signed by: Ventura Stewart MD | | Electronically signed: 08/05/2016 8:29 AM | + + + +---------+ + + | Performing | Address | City/State/Zipcode | Phone Number | | Organization | | | | + +---------+ + + | [facility] | | | | + +---------+ + + ECG 12 lead (08/04/2016 10:52 PM PST) + + + + + + | Component | Value | Ref Range | Performed | Pathologist | | | | | At | Signature | + + + + + + | VENTRICULAR | 80 | BPM | [facility] | | | RATE EKG | | | | | + + + + + + | ATRIAL RATE | 80 | BPM | [facility] | | + + + + + + | P-R | 194 | ms | [facility] | | | INTERVAL | | | | | + + + + + + | QRS | 88 | ms | [facility] | | | DURATION | | | | | + + + + + + | Q-T | 368 | ms | [facility] | | | INTERVAL | | | | | + + + + + + | Q-T | 424 | ms | [facility] | | | INTERVAL | | | | | | (CORRECTED) | | | | | + + + + + + | P WAVE AXIS | 46 | degrees | [facility] | | + + + + + + | QRS AXIS | 21 | degrees | [facility] | | + + + + + + | T AXIS | 35 | degrees | [facility] | | + + + + + + | INTERPRETAT | Normal sinus | | [facility] | | | ION TEXT | rhythmisolated ST | | | | | | elevation in lead V6: | | | | | | Cannot exclude | | | | | | ischemia/infarction | | | | | | versus artifactNo | | | | | | previous ECGs | | | | | | availableConfirmed by | | | | | | STEPH CALVILLO MD ([id number]) | | | | | | on 08/06/2016 10:33:07 | | | | | | AM | | | | + + + [...] | | | + +---------+ + + CBC with Differential (08/04/2016 10:42 PM PST) + + + + + + | Component | Value | Ref Range | Performed | Pathologist | | | | | At | Signature | + + + + + + | WBC | 8.7 | 4.0 - 11.0 K/uL | [facility] | | [facility] | | | | | | [facility] | | | | | | [facility] - | | | | | | LABORATORY | | + + + + + + | RBC | 4.12 | 3.70 - 5.20 | [facility] | | | | | M/uL | [facility] | | | | | | MEDICAL | | | | | | CENTER - | | | | | | LABORATORY | | + + + + + + | Hemoglobin | 13.4 | 11.5 - 16.0 | [facility] | | | | | g/dL | [facility] | | | | | | MEDICAL | | | | | | CENTER - | | | | | | LABORATORY | | + + + + + + | Hematocrit | 37.5 | 34.0 - 47.0 % | [facility] | | | | | | [facility] | | | | | | [facility]ICAL | | | | | | CENTER - | | | | | | LABORATORY | | + + + + + + | MCV | 91.0 | 83.0 - 101.0 fL | [facility] | | | | | | [facility] | | | | | | MEDICAL | | | | | | CENTER - | | | | | | LABORATORY | | + + + + + + | MCH | 32.4 | 28.0 - 35.0 pg | [facility] | | | | | | [facility] | | | | | | MEDICAL | | | | | | CENTER - | | | | | | LABORATORY | | + + + + + + | MCHC | 35.6 | 32.0 - 36.0 | [facility] | [...] + + + + | Platelet | 298 | 140 - 440 K/uL | [facility] | | | Count | | | [facility] | | | | | | MEDICAL | | | | | | CENTER - | | | | | | LABORATORY | | + + + + + + | MPV | 7.7 | fL | [facility] | | | | | | [facility] | | | | | | MEDICAL | | | | | | CENTER - | | | | | | LABORATORY | | + + + + + + | % | 48.8 | 45.0 - 82.0 % | [facility] | | | Neutrophils | | | [facility] | | | | | | MEDICAL | | | | | | CENTER - | | | | | | LABORATORY | | + + + + + + | % | 40.8 | 20.0 - 45.0 % | [facility] | | | Lymphocytes | | | [facility] | | | | | | MEDICAL | | | | | | CENTER - | | | | | | LABORATORY | | + + + + + + | % Monocytes | 6.8 | 4.0 - 12.0 % | [facility] | | | | | | [facility] | | | | | | MEDICAL | | | | | | CENTER - | | | | | | LABORATORY | | + + + + + + | % | 2.3 | 0.0 - 5.0 % | [facility] | | | Eosinophils | | | [facility] | | | | | | MEDICAL | | | | | | CENTER - | | | | | | LABORATORY | | + + + + + + | % Basophils | 1.3 (H) | 0.0 - 1.0 % | [facility] | | | | | | [facility] | | | | | | MEDICAL | | | | | | CENTER - | | | | | | LABORATORY | | + + + + + + | Absolute | 4.20 | 1.80 - 8.50 | [facility] | | | Neutrophils | | K/uL | [facility] | | | | | | MEDICAL | | | | | | CENTER - | | | | | | LABORATORY | | + + + + + + | Absolute | 3.50 (H) | 0.60 - 3.20 | [facility] [...] [address] | [place] | [phone] | | [facility] | | [address] | | | - LABORATORY | | | | + + + + + Basic Metabolic Panel (08/04/2016 10:42 PM PST) + + + + + + [...] + + + + | K | 3.6 | 3.5 - 5.1 | [facility] | [...] + + + + | CO2 | 24 | 24 - 31 mmol/L | [facility] | | | | | | [facility] | | | | | | MEDICAL | | | | | | CENTER - | | | | | | LABORATORY | | + + + + + + | Anion Gap | 11 | 3 - 16 mmol/L | [facility] | | | | | | [facility] | | | | | | MEDICAL | | | | | | CENTER - | | | | | | LABORATORY | | + + + + + + | Glucose | 131 (H) | 70 - 109 mg/dL | [facility] | | | | | | [facility] | | | | | | MEDICAL | | | | | | CENTER - | | | | | | LABORATORY | | + + + + + + | BUN | 17 | 7 - 18 mg/dL | [facility] | | | | | | [facility] | | | | | | MEDICAL | | | | | | CENTER - | | | | | | LABORATORY | | + + + + + + | Creatinine | 0.72 | 0.60 - 1.30 | [facility] | | | | | mg/dL | [facility] | | | | | | MEDICAL | | | | | | CENTER - | | | | | | LABORATORY | | + + + + + + | eGFR if not | >60Comment: GLOMERULAR | >=60 | [facility] | | | | FILTRATION | mL/min/1.73m2 | [facility] | | | S[facility]ANKAN | RATE,ESTIMATED | | MEDICAL | | | | mL/min/1.48h3Ayxu than | | CENTER - | | [...] + + + + | Calcium | 9.1 | 8.3 - 10.5 | [facility] | | | | | mg/dL | [facility] | | | | | | MEDICAL | | | | | | CENTER - | | | | | | LABORATORY | | + + + + + + | BUN/Creatin | 23.6 | | [facility] | | | ine [...] + + | [facility] | [address] | [place] | [phone] | | [facility] | | [address] | | | - LABORATORY | | | | + + + + + D-Dimer (08/04/2016 10:42 PM PST) + + + + + + | Component | Value | Ref Range | Performed | Pathologist | | | | | At | Signature | + + + + + + | D-Dimer | <0.27Comment: This | <=0.50 ug/ml | [facility] | | | Quantitativ | quantitative D-Dimer | | [facility] | | | e | assay has [...] | + + + + + | [facility] | [address] | [place] | [phone] | | [facility] | | [address] | | | - LABORATORY | | | | + + + + + Extra Green Top Tube (08/04/2016 10:42 PM PST) + +-------+ + + + | Component | Value | Ref Range | Performed | Pathologist | | | | | At | Signature | + +-------+ + + + | Extra Green | Done | | [facility] | | | Top Tube | | | [facility] | | [...] ST. | [address] | [place] | [phone] | | [facility] | | [address] | | | - LABORATORY | | | | + + + + + documented in this encounter Visit Diagnoses + + | Diagnosis | + + | Chest pain, unspecified type - Primary | + + documented in this encounter
--- OUTSIDE RECORDS SUMMARY | ~2019-08-01 | XMS | Encounter Summary ---
Demographics + + + | Address | [address] | | | [place] [address] | + + + | Home Phone | | + + + | Preferred Language | Unknown | + + + | Marital Status | | + + + | Adventist Affiliation | Unknown | + + + | Race | Unknown | + + + | Ethnic Group | Unknown | + + + Author + + + | Author | [facility] | | | and [place] | + + + | Organization | [facility] | | | and [place] | + + + | Address | Unknown | + + + | Phone | Unavailable | + + + Support + + + + + | Name | Relationship | Address | Phone | + + + + + | Alexsander Harris | ECON | [address] | | | | | [place] [address] | | + + + + + Care Team Providers + +------+ + | Care Bounty Trapper Name | Role | Phone | + [...] + + | 11/05/ | Office | [facility] | Caren Charles | Bronchitis with | | 2016 | Visit | [facility]ARE [address] | DO Tutu Burt | bronchospasm | | | | [place], [place] | [place], [place] | (Primary Dx) | | | | [address] | [address] | | | | | [phone] | | | +--------+---------+ + + + [...]
--- OUTSIDE RECORDS SUMMARY | ~2019-08-01 | XMS | Encounter Summary ---
Demographics + + + | Address | [address] | | | [place] [address] | + + + | Home Phone | | + + + | Preferred Language | Unknown | + + + | Marital Status | | + + + | Lutheran Affiliation | Unknown | + + + | Race | White | + + + | Ethnic Group | Not or | + + + Author + + + | Author | [facility] | + + + | Organization | [facility] | + + + | Address | [...] Team Providers + +------+ + | Care Biofuels Plant Superintendent Name | Role | Phone | + +------+ + PCP | Unavailable | + +------+ + Encounter Details +--------+ + + + + | Date | Type | Department | Care Team | Description | +--------+ + + + + | 04/27/ | Abstract | Medical | Tom Menjivar, | | | 2004 | | Dermatology [address] | [address] | | | | | [address] | [place], [place] | | | | | Mailcode: [id number] | [address] | | | | | Outpatient Clinic | [phone] | | | | | [facility], Room [address] | | | | | | [place], [place] | | | | | | [address] | | | | | | [phone] | | | +--------+ + + + [...] this encounter Last Filed Vital Signs + +---------+ + [...] - | | + +---------+ + + documented in this encounter Plan of Treatment Not on filedocumented as of this encounter Visit Diagnoses Not on filedocumented in this encounter"
--- OUTSIDE RECORDS SUMMARY | ~2019-08-01 | XMS | Encounter Summary ---
Demographics + + + | Address | [address] | | | [place] [address] | + + + | Home Phone | | + + + | Preferred Language | Unknown | + + + | Marital Status | | + + + | Congregational Affiliation | Unknown | + + + | Race | Unknown | + + + | Ethnic Group | Unknown | + + + Author + + + | Author | [facility] | | | and [place] | + + + | Organization | [facility] | | | and [place] | + + + | Address | Unknown | + + + | Phone | Unavailable | + + + Support + + + + + | Name | Relationship | Address | Phone | + + + + + | Alexsander Harris | ECON | [address] | | | | | [place] [address] | | + + + + + Care Team Providers + +------+ + | Care Economic Adviser Name | Role | Phone | + [...] | | | | CENTER [address] | [facility] [place] | (Primary Dx) | | 08/05/ | | [place], [place] | [place] [address] | | | 2016 | | [address] | [phone] | | | | | [phone] | | | +--------+ + + + [...] through Care Everywhere.CHEST PAIN, [facility] ERTAIN CAUSE (PITCAIRN ISLANDER)documented in this encounter Medications at Time of [...] 0 | | | | (VITAMIN D-3) [address] | mouth Daily. | | | | | | units CAPS | | | | | | + + + +---------+--------+ + | Coenzyme Q10 | Take 120 mg by mouth | | 0 | | | | (COQ10) 100 MG CAPS | 2 times daily. | | | | | + + + +---------+--------+ + | Shacklefords 3 1000 MG | Take 2,000 mg [...] | | | | STEPH CALVILLO MD ([id number]) | | | | | | on [...] [address] | [place] | [phone] | | [facility] | | [address] | | | - LABORATORY | | [...] | 0.72 | 0.60 - 1.30 | [facility] | | | | | mg/dL | [facility] | | | | | | MEDICAL | | | | | | CENTER - | | | | | | LABORATORY | | + + + + + + | eGFR if not | >60Comment: GLOMERULAR | >=60 | [facility] | | | | FILTRATION | mL/min/1.73m2 | [facility] | | | [place] | RATE,ESTIMATED | | MEDICAL | | | | mL/min/1.25w7Pajc than | | CENTER - | | [...] [address] | [place] | [phone] | | [facility] | | [address] | | | - LABORATORY | | [...] | Quantitativ | quantitative D-Dimer | | [facility] | | | e | assay has [...] + | [facility] | [address] | [place] | [phone] | | [facility] | | [address] | | | - LABORATORY | | [...] ST. | [address] | [place] | [phone] | | [facility] | | [address] | | | - LABORATORY | | | | + + + + + documented in this encounter Visit Diagnoses + + | Diagnosis | + + | Chest pain, unspecified type - Primary | + + documented in this encounter
--- OUTSIDE RECORDS SUMMARY | ~2019-08-01 | XMS | Clinical Summary ---
Demographics + + + | Address | [address] | | | [place] [address] | + + + | Home Phone | | + + + | Preferred Language | Unknown | + + + | Marital Status | | + + + | Confucianist Affiliation | Unknown | + + + | Race | Unknown | + + + | Ethnic Group | Unknown | + + + Author + + + | Author | [facility] | | | and [place] | + + + | Organization | [facility] | | | and [...] | | | | | [place] [address] | | + + + + + Care Team Providers + +------+ + | Care Administration Assistant Name | Role | Phone | + +------+ + | Haily Beltran NP | PCP | | + +------+ + Allergies + + + + + + | Active Allergy | Reactions | Severity | Noted | Comments | | | | | Date | | + + + + + + | Citalopram | Other (See Comments) | High | 12/06/19 | "Couldn't stay | | | | | 19 | awake" | + + + + + + | Penicillins | Rash | High | 04//20 | | | | | | 16 | | + + + + + + Medications + + + +---------+------+------+-------+ | Medication | Sig | Dispensed | Refills | Star | End | Statu | | | | | | t | Date | s | | | | | | Date | | | + + + +---------+------+------+-------+ | Cholecalciferol | Take 10,000 Units by | | 0 | | | Activ | | (VITAMIN D-3) 95540 | mouth Daily. | | | | | e | | units CAPS | | | | | | | + + + +---------+------+------+-------+ | Biotin 5000 MCG | Take 5,000 mcg by | | 0 | | | Activ | | CAPS | mouth Daily. | | | | | e | + + + +---------+------+------+-------+ | Coenzyme Q10 | Take 120 mg by mouth | | 0 | | | Activ | | (COQ10) 100 MG CAPS | 2 times daily. | | | | | e | + + + +---------+------+------+-------+ | vitamin E 1000 | Take 1,000 Units by | | 0 | | | Activ | | UNITS capsule | mouth Daily. | | | | | e | + + + +---------+------+------+-------+ | Adona 3 1000 MG | Take 2,000 mg by | | 0 | | | Activ | | CAPS | mouth 2 times daily. | | | | | e | + + + +---------+------+------+-------+ | B Complex Vitamins | Take by mouth | | 0 | | | Activ | | (B COMPLEX PO) | Daily. | | | | | e | + + + +---------+------+------+-------+ | Ascorbic Acid | Take 2,000 mg by | | 0 | | | Activ | | (VITAMIN C) 1000 MG | mouth Daily. | | | | | e | | tablet | | | | | | | + + + +---------+------+------+-------+ | cetirizine | Take 10 mg by mouth | | 0 | | | Activ | | (ZYRTEC) 10 mg | Daily. | | | | | e | | tablet | | | | | | | + + + +---------+------+------+-------+ | albuterol 2.5 mg/3 | Take 2.5 mg by | | 0 | | | Activ | | mL nebulizer | nebulization as | | | | | e | | solution | needed for Wheezing. | | | | | | + + + +---------+------+------+-------+ | THYROID PO | Take by mouth | | 0 | | | Activ | | | Daily. | | | | | e | + + + +---------+------+------+-------+ | APPLE CIDER | Take by mouth 2 | | 0 | | | Activ | | VINEGAR PO | times daily. | | | | | e | + + + +---------+------+------+-------+ | Turmeric (CURCUMIN | Take by mouth 3 | | 0 | | | Activ | | 95) 500 MG CAPS | times daily. | | | | | e | + + + +---------+------+------+-------+ | prazosin | Take 2 mg by mouth | | 0 | 03/3 | | Activ | | (MINIPRESS) 2 MG | nightly. | | | 0/20 | | e | | capsule | | | | 19 | | | + + + +---------+------+------+-------+ | albuterol | Ventolin HFA 90 | | 0 | | | Activ | | (VENTOLIN HFA) 90 | mcg/actuation | | | | | e | | mcg/puff inhaler | aerosol inhaler - 2 | | | | | | | | puffs every 4 hours | | | | | | | | as needed for | | | | | | | | shortness of breath | | | | | | + + + +---------+------+------+-------+ Active Problems + + + | Problem | Noted Date | + + + | Acute bronchitis | 12/05/2018 | + + + | Abnormal weight gain | 12/05/2018 | + + + | Abdominal tenderness of left lower quadrant | 12/05/2018 | + + + | Bulimia nervosa | 12/05/2018 | + + + | Excessive thirst | 12/05/2018 | + + + | Fatigue | 12/05/2018 | + + + | History of colonic polyps | 12/05/2018 | + + + | Hyperlipidemia | 12/05/2018 | + + + | Knee pain | 12/05/2018 | + + + | Maxillary sinusitis | 12/05/2018 | + + + | Menopausal symptom | 12/05/2018 | + + + | Metabolic syndrome X | 12/05/2018 | + + + | Morbid obesity | 12/05/2018 | + + + | Neoplasm of adrenal gland | 12/05/2018 | + + + | Numbness of foot | 12/05/2018 | + + + | Numbness of hand | 12/05/2018 | + + + | Generalized anxiety disorder | 12/05/2018 | + + + | Polyuria | 12/05/2018 | + + + | Left upper quadrant pain | 12/05/2018 | + + + | Viral pneumonia | 12/05/2018 | + + + | Female stress incontinence | 08/06/2013 | + + + | Pharyngitis | 07/10/2013 | + + + | Headache | 07/10/2013 | + + + | Otalgia | 07/10/2013 | + + + | Anxiety | 12/30/2012 | + + + | Palpitations | 12/30/2012 | + + + | Abnormal finding on mammography | 11/18/2012 | + + + | Acute upper respiratory infection | 05/07/2012 | + + + | Achilles tendinitis | 03/05/2012 | + + + | Achilles bursitis | 03/05/2012 | + + + | Premature atrial contraction | 03/05/2012 | + + + | Severe manic bipolar I disorder with psychotic features | 01/17/2012 | + + + | Ventricular premature beats | 01/17/2012 | + + + | Panic attack | 11/22/2011 | + + + | Vitamin D deficiency | 10/25/2011 | + + + | Migraine with aura | 09/28/2011 | + + + | Ganglion cyst | 02/09/2011 | + + + | Partial thickness burn | 01/09/2011 | + + + | Heel pain | 11/21/2010 | + + + | Anal pain | 10/10/2010 | + + + | Allergic rhinitis due to pollen | 10/10/2010 | + + + | Internal hemorrhoids | 10/10/2010 | + + + | Rectal pain | 10/10/2010 | + + + | Muscle pain | 08/30/2010 | + + + | Acute serous otitis media | 06/30/2010 | + + + | Acquired hypothyroidism | 06/30/2010 | + + + | Postural vertigo | 06/30/2010 | + + + | Insomnia | 06/02/2010 | + + + | Tobacco dependence syndrome | 06/02/2010 | + + + Encounters +--------+---------+ + + + | Date | Type | Specialty | Care Team | Description | +--------+---------+ + + + | 06/05/ | Office | Audiology | Vladimir Swift MS | Ear pressure, | | 2018 | Visit | | CCC-A | bilateral (Primary | | | | | | Dx); Normal hearing | | | | | | noted on examination | +--------+---------+ + + + from Last 3 Months Immunizations + + + + | Name | Administration Dates | Next Due | + + + + | TDAP, (ADOL/ADULT) | 01/05/2011 | | + + + + Family History + + +------+ + | Medical History | Relation | Name | Comments | + + +------+ + | Sleep apnea | Father | | | + + +------+ + | Sleep apnea | Maternal | | | | | Grandmoth | | | | | er | | | + + +------+ + | Sleep apnea | Mother | | | + + +------+ + + +------+--------+ + | Relation | Name | Status | Comments | + +------+--------+ + | Father | | | | + +------+--------+ + | Maternal Grandmother | | | | + +------+--------+ + | Mother | | | | + +------+--------+ + Social History + +-------+ +--------+------+ | [...] + + Last Filed Vital Signs + + + [...] | | + + + + + Plan of Treatment + + + + + | Health Maintenance | Due Date | Last Done | Comments | + + + + + | Vaccine: | | | | | Pneumococcal 19-64 | 9 | | | | (1 1 - PPSV23) | | | | + + + + + | Breast Cancer | | | | | Screening | 8 | | | + + + + + | Vaccine: Influenza | | | | | (#1) | 9 | | | + + + + + | Vaccine: | | 01/05/2011 | | | Dtap/Tdap/Td (2 - | 1 | | | | Td) | | | | + + + + + Procedures + +--------+ + + + | [...] section. | + +--------+ + + + from Last 3 Months Results DIAGNOSTIC REPORT - EXTERNAL SCAN (06/05/2019 12:00 AM PDT) + + + | Narrative | Performed At | + + + | Ordered by an | | | unspecified provider. | | + + + from Last 3 Months Insurance + +--------+ +--------+ +---------+--------+ | Payer | Benefi | Subscriber | Effect | Phone | Address | Type | | | t Plan | ID | jv | | | | | | / | | Dates | | | | | | Group | | | | | | + +--------+ +--------+ +---------+--------+ | [employer] | [employer] | [id number] | 08/27/19 | [phone] | | Medica | | MEDICAID HMO | HEALTH | | 16-Pre | 1 | | id | | | MDCD | | sent | | | | | | [place]MO [place] | | | | | | + +--------+ +--------+ +---------+--------+ + +--------+ +--------+ + + | Guarantor Name | Accoun | Relation to | Date | Phone | Billing Address | | | t Type | Patient | of | | | | | | | | | | + +--------+ +--------+ + + | Amparo Harris | Person | Self | [birth year] | [address] | | | al/Carlos | | 1975 | [phone] | [place] [address] | | | florina | | | 5 (Home) | | + +--------+ +--------+ + + Advance Directives + + + + + | Type | Date Recorded | Patient | Explanation | | | | Greeter Guest Services | | + + + + + | Power of | | | | | Orthoptist | | | | + + + + + | Advance | 01/17/2018 4:55 | | | | Directive | PM | | | + + + + +
--- OUTSIDE RECORDS SUMMARY | ~2019-08-01 | XMS | Encounter Summary ---
Demographics + + + | Address | [address] | | | [place] [address] | + + + | Home Phone | | + + + | Preferred Language | Unknown | + + + | Marital Status | | + + + | Restorationist Affiliation | Unknown | + + + | Race | White | + + + | Ethnic Group | Not or | + + + Author + + + | Author | [facility] | + + + | Organization | [facility] | + + + | [...] Team Providers + +------+ + | Care Mud Analysis Well Logging Operator Name | Role | Phone | + +------+ + | Fausto Montesinos DO | PCP | | + +------+ + Encounter Details +--------+ + + + + | Date | Type | Department | Care Team | Description | +--------+ + + + + | 03/28/ | Abstract | Digestive Health | Clinic, Surgery | | | 2015 | | [place] at [facility] [address] | | | | | | [address] | | | | | | Mailcode: Center | | | | | | for Health and | | | | | | Healing, Building 2 | | | | | | [place], [place] | | | | | | [address] | | | | | | [phone] | | | +--------+ + + + [...]
--- OUTSIDE RECORDS SUMMARY | ~2019-08-01 | XMS | Encounter Summary ---
Demographics + + + | Address | [address] | | | [place] [address] | + + + | Home Phone | | + + + | Preferred Language | Unknown | + + + | Marital Status | | + + + | Jainism Affiliation | Unknown | + + + | Race | Unknown | + + + | Ethnic Group | Unknown | + + + Author + + + | Author | [facility] | | | and [place] | + + + | Organization | [facility] | | | and [place] | + + + | Address | Unknown | + + + | Phone | Unavailable | + + + Support + + + + + | Name | Relationship | Address | Phone | + + + + + | Alexsander Harris | ECON | [address] | | | | | [place] [address] | | + + + + + Care Team Providers + +------+ + | Care Cementer Machine Joiner Name | Role | Phone | + [...] + + | 12/04/ | Emergency | [facility] | Enzo Aguilera, | Malaise and fatigue | | 2016 | | MED CTR EMERGENCY | MD [address] | (Primary Dx) | | | | CENTER [address] | [facility] | | | | | [place] | [place] [address] | | | | | [address] | [phone] | | | | | [phone] | | | +--------+ + + + [...] sent through Care Everywhere.WEAKNESS (UNCRICKEY TAIN CAUSE) (URUGUAYAN)documented in this encounter Medications at Time of [...] 0 | | | | (VITAMIN D-3) 23472 | mouth Daily. | | | | | | units CAPS | | | | | | + + + +---------+ + + | Coenzyme Q10 | Take 120 mg by mouth | | 0 | | | | (COQ10) 100 MG CAPS | 2 times daily. | | | | | + + + +---------+ + + | [place] 3 1000 MG | Take 2,000 mg [...] - 1.030 | [facility] | | | [place] | | | [facility] | | [...] [address] | [place] | [phone] | | [facility] | | [address] | | | - LABORATORY | | [...] + | [facility] | [address] | [place] | [phone] | | [facility] | | [address] | | | - LABORATORY | | [...] [address] | [place] | [phone] | | [facility] | | [address] | | | - LABORATORY | | [...] + | [facility] | [address] | [place] | [phone] | | [facility] | | [address] | | | - LABORATORY | | [...] + | [facility] | [address] | [place], [place] | [phone] | | [facility] | | [address] | | | - LABORATORY | | [...] [address] | [place] | [phone] | | [facility] | | [address] | | | - LABORATORY | | [...] + | [facility] | [address] | [place] | [phone] | | [facility] | | [address] | | | - LABORATORY | | [...] + | [facility] | [address] | [place] | [phone] | | [facility] | | [address] | | | - LABORATORY | | [...] [address] | [place] | [phone] | | [facility] | | [address] | | | - LABORATORY | | [...] | 0.74 | 0.60 - 1.30 | [facility] | | | | | mg/dL | [facility] | | | | | | MEDICAL | | | | | | CENTER - | | | | | | LABORATORY | | + + + + + + | eGFR if not | >60Comment: GLOMERULAR | >=60 | [facility] | | | | FILTRATION | mL/min/1.73m2 | [facility] | | | BRITISH | RATE,ESTIMATED | | MEDICAL | | | | mL/min/1.24r2Lybl than | | CENTER - | | [...] [address] | [place] | [phone] | | [facility] | | [address] | | | - LABORATORY | | [...] + | [facility] | [address] | [place] | [phone] | | [facility] | | [address] | | | - LABORATORY | | [...] [address] | [place] | [phone] | | [facility] | | [address] | | | - LABORATORY | | [...]
--- OUTSIDE RECORDS SUMMARY | ~2019-08-01 | XMS | Encounter Summary ---
Demographics + + + | Address | [address] | | | [place] [address] | + + + | Home Phone [...] + + + | Author | [facility] | + + + | Organization | [facility] | + + + | Address [...] Team Providers + +------+ + | Care Global Recruiter Name | Role | Phone | + +------+ + | Fausto Montesinos DO | PCP | | + +------+ + Encounter Details +--------+ + + + + | Date | Type | Department | Care Team | Description | +--------+ + + + + | 03/31/ | Abstract | Digestive Health | Clinic, Surgery | | | 2015 | | [place] at [facility] [address] | | | | | | [address] | | | | | | Mailcode: Center | | | | | | for Health and | | | | | | Healing, Building [address] | | | | | | [place], [place] | | | | | | [address] | | | | | | [phone] | | | +--------+ + + + [...]
--- OUTSIDE RECORDS SUMMARY | ~2019-08-01 | XMS | Encounter Summary ---
Demographics + + + | Address | [address] | | | [place] [address] | + + + | Home Phone | | + + + | Preferred Language | Unknown | + + + | Marital Status | | + + + | Latter Day Affiliation | Unknown | + + + | Race | Unknown | + + + | Ethnic Group | Unknown | + + + Author + + + | Author | [facility] | | | and [place] | + + + | Organization | [facility] | | | and [...] | | | | | [place] [address] | | + + + + + Care Team Providers + +------+ + | Care Diploma Pharmacy Technician Name | Role | Phone | + +------+ + PCP | Unavailable | + +------+ + Encounter Details +--------+ + + + + | Date | Type | Department | Care Team | Description | +--------+ + + + + | 01/14/ | [facility] | [facility] | Madhu Agudelo, | | | 2007 | Encounter | MED CTR XRAY [address] | MD [address] | | | | | [place] | [address] | | | | | [place] [address] | [address] | | | | | [phone] | [phone] | | | | | | | [...]
--- OUTSIDE RECORDS SUMMARY | ~2019-08-01 | XMS | Encounter Summary ---
Demographics + + + | Address | [address] | | | [place] [address] | + + + | Home Phone | | + + + | Preferred Language | Unknown | + + + | Marital Status | | + + + | Anglican Affiliation | Unknown | + + + [...] Team Providers + +------+ + | Care Manufacturing Test Engineer Name | Role | Phone | + [...] | | Center at [facility] [address] | [facility] [address] | Review | | | | [address] | [facility] [address] | | | | | Mailcode: Center | [place], [place] | | | | | for Health and | [address] | | | | | [facility] [address] | [phone] | | | | | [place], [place] | | | | | | [address] | | | | | | [phone] | | | +--------+ + + + [...]
--- OUTSIDE RECORDS SUMMARY | ~2019-08-01 | XMS | Encounter Summary ---
Demographics + + + | Address | [address] | | | [place] [address] | + + + | Home Phone | | + + + | Preferred Language | Unknown | + + + | Marital Status | | + + + | Pentecostalism Affiliation | Unknown | + + + | Race | Unknown | + + + | Ethnic Group | Unknown | + + + Author + + + | Author | [facility] | | | and [place] | + + + | Organization | [facility] | | | and [place] | + + + | Address | Unknown | + + + | Phone | Unavailable | + + + Support + + + + + | Name | Relationship | Address | Phone | + + + + + | Alexsander Harris | ECON | [address] | | | | | [place] [address] | | + + + + + Care Team Providers + +------+ + | Care Arch Support Maker Name | Role | Phone | + [...] + + | 11/01/ | Office | [facility] | Raquel Figueroa MD | ABILIO (obstructive | | 2018 | Visit | SLEEP DISORDER [address] | [address] | sleep apnea) | | | | [address] [place] | [place] | (Primary Dx) | | | | [place] [address] | [address] | | | | | [phone] | | | +--------+---------+ + + + [...] herself to use the machine. PAP STATISTICS: [employer]: [employer] APAP: 5-15 cm Median p: 7.7 Max [...] Daily. Yes Historical ProviderMD Cholecalciferol (VITAMIN D-3) 72386 units CAPS Take 10,000 Units by mouth Daily. Yes Hist orical ProviderMD Coenzyme Q10 (COQ10) 100 MG CAPS Take 120 mg by mouth. Yes Historical Provider, magnesium, as oxide, 250 MG tablet Take 500 mg by mouth Daily. Yes Historical ProviderPatt Hudson 3 1000 MG CAPS Take 3,000 mg [...] this chart may have been created with [employer] voice recognition software. Occasi onal wrong-word or [...]
--- OUTSIDE RECORDS SUMMARY | ~2019-08-01 | XMS | Encounter Summary ---
Demographics + + + | Address | [address] | | | [place] [address] | + + + | Home Phone | | + + + | Preferred Language | Unknown | + + + | Marital Status | | + + + | Orthodox Affiliation | Unknown | + + + [...] Team Providers + +------+ + | Care Head Porter Baggage Name | Role | Phone | + +------+ + PCP | Unavailable | + +------+ + Encounter Details +--------+ + + + + | Date | Type | Department | Care Team | Description | +--------+ + + + + | 04/27/ | Abstract | Medical | Tom Menjivar, | | | 2004 | | Dermatology [address] | [address] | | | | | [address] | [place], [place] | | | | | Mailcode: OP06 | [address] | | | | | Outpatient Clinic | [phone] | | | | | [facility], Room [address] | | | | | | [place], [place] | | | | | | [address] | | | | | | [phone] | | | +--------+ + + + [...]
--- OUTSIDE RECORDS SUMMARY | ~2019-08-01 | XMS | Encounter Summary ---
Demographics + + + | Address | [address] | | | [place] [address] | + + + | Home Phone | | + + + | Preferred Language | Unknown | + + + | Marital Status | | + + + | Sikhism Affiliation | Unknown | + + + | Race | White | + + + | Ethnic Group | Not or | + + + Author + + + | Author | [facility] | + + + | Organization | [facility] | + + + | Address | [...] Team Providers + +------+ + | Care It Coordinator Name | Role | Phone | [...] 2004 | Registratio | [address] | [address] | | | | n | Dave Mailcode: [id number] | [place], [place] | | | | | [place], [place] | [address] | | | | | [address] | [phone] | | | | | [phone] | | | +--------+ + + + [...]
--- OUTSIDE RECORDS SUMMARY | ~2019-08-01 | XMS | Clinical Summary ---
Demographics + + + | Address | [address] | | | [place] [address] | + + + | Home Phone | | + + + | Preferred Language | Unknown | + + + | Marital Status | | + + + | Sabianist Affiliation | Unknown | + + + | Race | Unknown | + + + | Ethnic Group | Unknown | + + + Author + + + | Author | [facility] | | | and [place] | + + + | Organization | [facility] | | [...] | | | | | [place] [address] | | + + + + + Care Team Providers + +------+ + | Care Architectural Designer Name | Role | Phone | + [...] | | Activ | | (VITAMIN D-3) 77453 | mouth Daily. | | | | [...] e | + + + +---------+------+------+-------+ | Can[place] 3 1000 MG | Take 2,000 mg [...] | [employer] | MODA | [id number] | 08/27/19 | [phone] | | Medica [...] | 1975 | [phone] | [place] [address] | | | [place] | | | 5 (Home) | | + +--------+ +--------+ + + Advance Directives + + + + + | Type | Date Recorded | Patient | Explanation | | | | [employer] Financials Consultant | | + + + + + | Power of | | | | | Fire Alarm Operator | | | | + + + + + | Advance | 01/17/2018 4:55 | | | | Directive | PM | | | + + + + +
--- OUTSIDE RECORDS SUMMARY | ~2019-08-01 | XMS | Encounter Summary ---
Demographics + + + | Address | [address] | | | [place] [address] | + + + | Home Phone | | + + + | Preferred Language | Unknown | + + + | Marital Status | | + + + | Advent Affiliation | Unknown | + + + | Race | Unknown | + + + | Ethnic Group | Unknown | + + + Author + + + | Author | [facility] | | | and [place] | + + + | Organization | [facility] | | | and [place] | + + + | Address | Unknown | + + + | Phone | Unavailable | + + + Support + + + + + | Name | Relationship | Address | Phone | + + + + + | Alexsander Harris | ECON | [address] | | | | | [place] [address] | | + + + + + Care Team Providers + +------+ + | Care Stem Assembler Name | Role | Phone | + [...] | | | | rough/[place] | [place] [address] | [place], [place] | | | | | t to follow | Phone: | [phone] Phone: | | | | | up with Dr | [phone] | [phone] | | | | | Adrianna alvarado | Fax: | Fax: | | | | | ENT care | [phone] | [phone] | | | | | Procedures | [...] | [address] | [place] [address] | noted on examination | | | | [address] [place] | [phone] | | | | | [place] [address] | | | | | | [phone] | | | +--------+---------+ + + + [...] reassured that her hearing is fine and [id number] communication was suggested. Follow-up care with Dr. Rodas at [facility]. Thank you. documented in thi s [...]
--- OUTSIDE RECORDS SUMMARY | ~2019-08-01 | XMS | Encounter Summary ---
Demographics + + + | Address | [address] | | | [place] [address] | + + + | Home Phone | | + + + | Preferred Language | Unknown | + + + | Marital Status | | + + + | Buddhist Affiliation | Unknown | + + + | Race | White | + + + | Ethnic Group | Not or | + + + Author + + + | Author | [facility] | + + + | Organization | [facility] | + + + | Address [...] Team Providers + +------+ + | Care Automotive Glass Technician Name | Role | Phone | + +------+ + | Fausto Montesinos DO | PCP | | + +------+ + Encounter Details +--------+ + + + + | Date | Type | Department | Care Team | Description | +--------+ + + + + | 03/31/ | Abstract | Digestive Health | Clinic, Surgery | | | 2015 | | [place] at [facility] [address] | | | | | | [address] | | | | | | Mailcode: Center | | | | | | for Health and | | | | | | Healing, Building [address] | | | | | | [place], [place] | | | | | | [address] | | | | | | [phone] | | | +--------+ + + + [...]
--- OUTSIDE RECORDS SUMMARY | ~2019-08-01 | XMS | Encounter Summary ---
Demographics + + + | Address | [address] | | | [place] [address] | + + + | Home Phone [...] | Organization | [facility] | | | and [place] | + + + | Address | Unknown | + + + | Phone | Unavailable | + + + Support + + + + + | Name | Relationship | Address | Phone | + + + + + | Alexsander Harris | ECON | [address] | | | | | [place] [address] | | + + + + + Care Team Providers + +------+ + | Care Bulk Station Operator Name | Role | Phone | [...] | (obstructive | [address] | [place] | | | | | sleep | [address] [place] | [place], | | | | | apnea) | [place] | [place] [address] | | | | | Procedures | [address] | Phone: | | | | | [place] POLYSOM | Phone: | [phone] | | | | | 6/>YRS SLEEP | [phone] | Fax: | | | | | W/CPAP 4/> | Fax: | [phone] | | | | | ADDL SUSI | [phone] | | | | | | ATT[place] | | | | | | | [...] | Sleep | sleep apnea | Haily Reyes NP | [address] | | | | Medicine / | (adult) | [address] | [facility] | | | | Sleep | (pediatric) | [place] | [place], [place] | | | | Medicine | consult | [facility], | [address] Phone: | | | | | [email or web address] | [place] [address] | [phone] | | | | | Procedures | Phone: | Fax: | | | | | NEW PATIENT | [phone] | [phone] | | | | | | Fax: | | | | | | | [phone] | | +--------+--------+ + + + + Encounter Details +--------+---------+ + + + | Date | Type | Department | Care Team | Description | +--------+---------+ + + + | 07/30/ | Office | [facility] | Raquel Figueroa MD | ABILIO (obstructive | | 2017 | Visit | SLEEP DISORDER [address] | [address] | sleep apnea) | | | | [place] | [place] | (Primary Dx) | | | | [place] [address] | [address] | | | | | [phone] | | | +--------+---------+ + + + [...] the night, making your sleep fragmentedwith a health education coordinator stage of sleep. Even though you do not remember waking up many times during the night to a health education coordinator sleep, you fee l tired the next [...] when you re asleep. Date Last Reviewed: 03/13/201519996826-7065 [employer]. [address] [place] [address], [place] [address]. All righ ts reserved. This information is [...] types of CPAP. Your doctor or CPAP help desk technician will help you decide whic h [...] sleep stage, and snoring. Date Last Reviewed: 04/05/201519993093-0658 [employer]. [address] [place] [address], [place] [address]. All [facility] ts reserved. This information is not intended [...] be able to sleep at night. ? [place] Sleepiness Scale: 3 out of 24 ( [...] Daily. Yes Historical ProviderMD Cholecalciferol (VITAMIN D-3) 66522 units CAPS Take 10,000 Units by mouth Daily. Yes Hist orical ProviderMD Coenzyme Q10 (COQ10) 100 MG CAPS Take 120 mg by mouth. Yes Historical ProviderMD magnesium, as oxide, 250 MG tablet Take 500 mg by mouth Daily. Yes Historical ProviderPatt D [place] 3 1000 MG CAPS Take 3,000 mg [...] probl ems. discussed diagnosis via polysomnography / thb-fk-awstdn sleep testing. Since she use d to [...] this chart may have been created with [employer] voice recognition software. Occasi onal wrong-word or sound-alike substitutions may have occurred due to the inherent [place]arn[place] itations of voice recognition software. Please read the chart carefully and recognize, using context, where these substitutions have occurred. Sallie Gonzalez [facility] As sistant - 07/30/2017 11:00 AM PSTFormatting of this note might be different from the origina l. 07/30/17 1000 [place] Depression Inventory-II Depression Score 45 - Severe depression Insomnia Severity Index Insomnia Severity Index 20 [place] Sleepiness Scale Sitting and reading 0 Watching [...] + + +--------+ + + | * [facility] - | Outpatient | [...]
[~2019-08-01 12:45] MED LIST: ALLERGY MEDICAT25 M1 PO; ANTIVERT25 MG PO; APPLE CIDER VI600 MG PO; BUSPIRONE HCL10 MG PO; COQ-10100 MG PO; DICLOFENAC SODI75 MG PO; FISH OIL500 MG PO; KLONOPIN1 MG PO; MAGNESIUM100 MG PO; MELATONIN10 M2 PO; NIACIN500 M1 PO; NORCO 10-325 T1 EACH PO; OMEGA 3-6-9 CO400 MG PO; PRAZOSIN HCL2 MG PO; SUDAFED30 MG PO; SYNTHROID175 MCG PO; TURMERIC500 M2 PO; VIIBRYD10 MG PO; VITAMIN C500 M1 PO; VITAMIN D1000 UNI1 PO; VITAMIN D2000 UNI1 PO; VITAMIN D350000 UNIT PO; VOLTAREN100 GM TP; XANAX1 MG PO; ZOFRAN ODT4 MG PO; ZOLPIDEM TARTRA10 MG PO; ZYRTEC10 MG PO; [UNRECOGNIZED DRUG - OTHER] PO
[2019-08-01] MEDS ORDERED: DILTIAZEM ER60 MG PO (14:07)
== END 2019-08-01 14:30 | disposition home or self-care (01) ==
LOC: ED 12:45
DX: S83.91XA Sprain of unspecified site of right knee, initial encounter (principal); G43.909 Migraine, unspecified, not intractable, without status migrainosus; F17.200 Nicotine dependence, unspecified, uncomplicated; Z71.6 Tobacco abuse counseling; Z88.0 Allergy status to penicillin; Z88.8 Allergy status to other drugs, medicaments and biological substances; Z79.899 Other long term (current) drug therapy; X50.1XXA Overexertion from prolonged static or awkward postures, initial encounter
CPT/HCPCS: 99283; 99406